=== PATIENT | female | born 2000 | race Caucasian/White ===

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

== ENCOUNTER → 2021-01-08 10:14 | Outpatient (BNV) | payer OTHER, SELFPAY | PROVIDERS: Referring Provider Physician Assistant; Visit Provider Internal Medicine | DX: D64.9 Anemia, unspecified (principal) | CPT/HCPCS: 99203; 99213; G2211 ==

== ENCOUNTER 2021-07-12 23:50 | Emergency (ER) | payer OTHER, SELFPAY ==
--- NOTE | ~2021-07-12 | XR_ITS ---
EXAMINATION: XR CHEST CLINICAL INFORMATION: Congestion COMPARISON: 03/22/2018 TECHNIQUE: Frontal view of the chest was obtained. FINDINGS: The lungs are clear with no focal consolidation. No evidence of pneumothorax, pulmonary edema, or pleural effusions. The cardiomediastinal silhouette is unremarkable. No acute osseous findings. XR/XR chest 1V IMPRESSION: No acute cardiopulmonary findings.
[2021-07-13 00:53] VITALS: BP 156/87; PULSE 110; RESP 18; TEMP 37.1; O2SAT 98; BMI 21.4
[2021-07-13 01:00] LABS: COVID-19 Test Negative (Negative)
--- NOTE | 2021-07-13 01:52 | ED.URI ---
HPI - URI/Sore Throat General Chief Complaint: Upper Respiratory Symptoms Stated Complaint: congested; can't sleep Time Seen by Provider: 07/13/21 01:52 Source: patient Mode of arrival: ambulatory Limitations: no limitations History of Present Illness MD elicited complaint: rhinorrhea and nasal congestion Pertinent past history: seasonal allergies Onset (ago): day(s) (2) Consistency: progressively worsening Severity: severe Description of mucous: clear and watery Able to tolerate fluids by mouth: Yes Exacerbating factors: nothing Relieving factors: nothing Context: other (hx of milder symptoms) Associated symptoms: rhinorrhea, nasal congestion and other (hard time sleeping due to mucous) Treatments prior to arrival: other (zyrtec) Related Data Home Medications Medication Instructions Recorded Confirmed cetirizine 10 mg tablet (Zyrtec) 10 mg PO DAILY 04/10/21 04/10/21 Previous Rx's Medication Instructions Recorded triamcinolone acetonide 0.025 % 1 appl TOPICAL DAILY #80 g 06/25/20 topical ointment svirftcr-qhh-peao-FA-Ca carb-vit K 1 tab PO BEDTIME #30 tab 11/06/20 18 mg iron-400 mcg-500 mg tablet (Women's Multivitamin) ferrous sulfate 325 mg (65 mg 325 mg PO BID #60 tab 01/08/21 iron) tablet (iron) fluticasone propionate 50 1 spray INTRANASAL DAILY #16 g 07/13/21 mcg/actuation nasal spray,suspension prednisone 20 mg tablet 40 mg PO DAILY 4 Days #8 tab 07/13/21 Allergies Allergy/AdvReac Type Severity Reaction Status Date / Time hazelnut Allergy Mild WATERY EYES Verified 07/13/21 00:42 mcconnell [CHERRIES] Allergy Unknown THROAT Verified 07/13/21 00:42 SWELLING GUINNEA PIG Allergy Mild WATERY, Uncoded 07/13/21 00:42 ITCHY EYES Tree Nuts Allergy Unknown rash Uncoded 07/13/21 00:42 Review of Systems Review of Systems: Constitutional : No Fever, No Chills ENT/Mouth : No sore throat, pos Rhinorrhea, pos congestion Eyes: No Eye Pain, No Swelling, No Redness Cardiovascular : No Chest Pain, No SOB Respiratory : No Cough, No Sputum, No Wheezing Gastrointestinal : No Nausea, No Vomiting, No Diarrhea Genitourinary : No Dysuria, No Urinary Frequency, No Hematuria, Musculoskeletal : No joint pain, No Myalgias, No Joint Swelling Skin : No Skin Lesions, No rash Neuro : No Weakness, No Numbness, No Dizziness, No Headache [facility] Past Medical History Attestation statement: The following information was validated with the patient. Medical History Intrinsic eczema Iron deficiency anemia Surgical History No pertinent past surgical history Family History Family History Mother No problems noted. Maternal Grandfather Cancer Social History Social History Household Members: Family Alcohol intake: never Patient Tobacco Use Status: Never used Tobacco Advance Directives: No Advance Directives Information Provided: Yes Patient : No Physical Exam Vital Signs: Vital Signs: Last Vital Signs Temp 98.7 F 07/13/21 00:53 Pulse 110 H 07/13/21 00:53 Resp 18 07/13/21 00:53 BP 156/87 H 07/13/21 00:53 Pulse Ox 98 07/13/21 00:53 BMI result Body Mass Index 21.4 Appearance: Alert. Oriented X3. No acute distress. Eyes: Pupils equal, round and reactive to light. ENT: Pharynx normal. boggy very swollen turbinates, clear mucous, bags under eyes Neck: Normal inspection. Neck supple. CVS: Normal heart rate and rhythm. Pulses normal. Respiratory: No respiratory distress. Breath sounds normal. Abdomen: Soft and nontender. Skin: Skin warm and dry. Normal skin color. Normal skin turgor. Extremities: No lower extremity edema. No calf ttp Neuro: Oriented X 3. No motor deficit. No sensory deficit. MDM - URI/Sore Throat MDM Narrative Medical decision making narrative: 21 yo female with hx of allergies here with allergic rhinitis and very boggy turbinates, clear mucous no fevers - will need flonase and prednisone given swelling no concern for bacterial infection Lab Data Labs: Lab Results 07/13/21 Range/Units 00:35 COVID-19 (NICOLLE) Negative (Negative) COVID-19 Clin Com See Note Discharge Plan Discharge Clinical Impression: Allergic rhinitis Qualifiers: Allergic rhinitis trigger: unspecified Allergic rhinitis seasonality: unspecified Qualified Code(s): J30.9 - Allergic rhinitis, unspecified Patient Disposition: Home, Self-Care Instructions: Allergic Rhinitis (ED) Additional Instructions: return to ED for any worsening symptoms or concerns Prescriptions: New prednisone 20 mg tablet 40 mg PO DAILY 4 Days Qty: 8 0RF fluticasone propionate 50 mcg/actuation spray,suspension 1 spray intranasal DAILY Qty: 16 0RF Rx Instructions: administer into each nostril No Action Women's Multivitamin 18 mg iron-400 mcg-500 mg tablet 1 tab PO BEDTIME Qty: 30 2RF ferrous sulfate [iron] 325 mg (65 mg iron) Tablet 325 mg PO BID Qty: 60 3RF cetirizine [Zyrtec] 10 mg Tablet 10 mg PO DAILY 0RF triamcinolone acetonide 0.025 % ointment 1 appl topical DAILY Qty: 80 2RF Referrals: Billie Sanchez PA-C [Primary Care Provider] - 3 days (if not better)
[2021-07-13] MEDS: predniSONE 20 MG TABLET 40 MG PO (02:16)
[2021-07-13] MEDS: Oxymetazoline HCl 0.05 % Nasal 15 ML SPRAY 2 SPRAY NOSTRIL-B (02:17)
[2021-07-13 02:24] VITALS: BP 133/68; PULSE 98; RESP 16; O2SAT 97
== END 2021-07-13 02:27 | disposition home or self-care (01) ==
LOC: HO.ED 07-13 02:02
PROVIDERS: Emergency Provider Emergency Medicine; PCP Physician Assistant
DX: J30.9 Allergic rhinitis, unspecified (principal); Z20.822 Contact with and (suspected) exposure to COVID-19
CPT/HCPCS: 71045; 87635; 99283

== ENCOUNTER 2021-10-14 11:59 | Outpatient (REF) | payer OTHER, SELFPAY ==
[2021-10-14 16:25] LABS: Influenza A PCR NEGATIVE (Negative); Influenza B PCR NEGATIVE (Negative); Resp Syncy Virus RNA Qual PCR NEGATIVE (Negative); SARS COV2 PCR INHOUSE POSITIVE (Negative)
== END 2021-10-14 12:00 | disposition home or self-care (01) ==
LOC: HO.LAB 11:59
PROVIDERS: Visit Provider Pediatrics
DX: Z20.822 Contact with and (suspected) exposure to COVID-19 (principal); R09.89 Other specified symptoms and signs involving the circulatory and respiratory systems
CPT/HCPCS: 0241U

== ENCOUNTER 2022-02-18 12:19 | Outpatient (REF) | payer OTHER, SELFPAY ==
[2022-02-18 13:59] LABS: MANUAL DIFF FLAG NO
[2022-02-18 14:15] LABS: Basophils Percent Auto 0.3 % (0-2); Eosinophils Absolute Auto 0.5 X10*3/uL (0.0-0.4); Eosinophils Percent Auto 7.2 % (0-4); Hematocrit 39.2 % (37.0-47.0); Hemoglobin 12.8 g/dl (12.0-16.0); Imm Gran Abs Auto 0.01 X10*3/uL (0.00-0.03); Imm Gran Pct Auto 0.1 % (0.0-0.4); Lymphocytes Absolute Auto 2.2 X10*3/uL (1.2-4.9); Lymphocytes Percent Auto 29.1 % (20-40); Mean Corpuscular HGB Conc 32.7 g/dl (31.0-35.0); Mean Corpuscular Hemoglobin 26.3 pg (27.0-33.0); Mean Corpuscular Volume 80.5 fL (80.0-98.0); Mean Platelet Volume 12.4 fL (9.4-12.3); Monocytes Absolute Auto 0.5 X10*3/uL (0.1-1.2); Monocytes Percent Auto 7.2 % (2-11); Neutrophils Absolute Auto 4.2 x10*3/uL (2.0-8.3); Neutrophils Percent Auto 56.1 % (45-73); Platelet Count 221 X10*3/uL (160-400); Red Blood Count 4.87 X10*6/uL (4.20-5.50); Red Cell Distribution Width 12.5 % (11.0-16.0); White Blood Count 7.5 X10*3/uL (4.8-10.8)
[2022-02-18 14:58] LABS: Alanine Aminotransferase 57 U/L (0-31); Albumin Level 4.5 g/dL (3.5-5.0); Alkaline Phosphatase 81 U/L (39-117); Anion Gap 13 (12-20); Aspartate Amino Transferase 40 U/L (5-31); Bilirubin Total 0.6 mg/dL (0.0-1.0); Blood Urea Nitrogen 19 mg/dL (9-16); Calcium 10.3 mg/dL (8.4-10.2); Carbon Dioxide 25 mmol/L (22-29); Chloride 106 mmol/L (96-108); Estimated Glomerular Filt Rate > 60; Glucose Fasting 87 mg/dL (60-99); Sodium 140 mmol/L (135-145); TSH reflex Free T4 < 0.01 uIU/mL (0.32-4.0); Total Protein 7.5 g/dL (6.5-8.0)
[2022-02-19 08:56] LABS: Triiodothyronine T3 Free 14.9 pg/mL (3.0-4.7)
[2022-02-19 09:37] LABS: Thyroid Peroxidase Antibodies 163 IU/mL (<9)
== END 2022-02-18 12:20 | disposition home or self-care (01) ==
LOC: HO.WFDLDS 12:19
PROVIDERS: Visit Provider Nurse Practitioner Family
DX: R22.1 Localized swelling, mass and lump, neck (principal)
CPT/HCPCS: 36415; 76536; 80053; 84439; 84443; 84481; 85025; 86376

== ENCOUNTER 2022-02-18 13:25 | Outpatient (REF) | payer OTHER, SELFPAY ==
--- NOTE | ~2022-02-18 | US_ITS ---
EXAMINATION: US THYROID CLINICAL INFORMATION: Localized swelling, mass and lump. COMPARISON: None. TECHNIQUE: Linear transducer grayscale and color Doppler examination with attention to the region of the thyroid. FINDINGS: SIZE: Measurements of the thyroid lobes and nodules are given in sagittal, anteroposterior and transverse dimensions respectively. Right Thyroid Lobe: 4.3 x 2.4 x 2.4 cm, volume 12.9 mL. Parenchyma: The gland echotexture is heterogeneous. Thyroid vascularity is hypervascular. Left Thyroid Lobe: 4.8 x 2 0.5-2.0 cm, volume 12.4 mL. Parenchyma: The gland echotexture is heterogeneous. Thyroid vascularity is hypervascular. Isthmus: 0.7 cm in maximum AP dimension. Estimated total number of nodules greater than or equal to 1 cm: 0. There are no nodules visualized in either gland. NODES: No lymphadenopathy is seen in the tissue surrounding the thyroid gland. US/US thyroid IMPRESSION: 1. Enlarged hypervascular thyroid gland but no focal nodules seen. Findings suggestive of hyperthyroidism. 1. TR1 (0 point) and TR 2 (2 points): 2. TR4 (4-6 points): FNA if more than or equal to 1.5 cm in maximum dimension, followup ultrasound in 1, 2, 3 and 5 years if 1 to 1.4 cm in maximum dimension. 3. TR5 (more than or equal to 7 points): FNA if more than or equal to 1 cm in maximum dimension, followup ultrasound every year for 5 years if 0.5 to 0.9 cm in maximum dimension.
== END 2022-02-18 13:26 | disposition home or self-care (01) ==
LOC: HO.US 13:25
PROVIDERS: Visit Provider Nurse Practitioner Family
DX: Z13.89 Encounter for screening for other disorder (principal)
CPT/HCPCS: 76536

== ENCOUNTER 2022-02-24 09:49 | Outpatient (REF) | payer OTHER, SELFPAY ==
[2022-02-24 13:08] LABS: Free T4 (Free Thyroxine) 2.48 ng/dL (0.71-1.85); Thyroid Stimulating Hormone < 0.01 uIU/mL (0.32-4.0)
[2022-02-25 08:47] LABS: Triiodothyronine T3 Total 401 ng/dL (76-181)
[2022-02-25 09:10] LABS: Thyroglobulin Antibodies 3 IU/mL (< or = 1); Thyroid Peroxidase Antibodies 192 IU/mL (<9)
[2022-02-28 15:42] LABS: Thyroid Stimulating Immunoglob 643 % baseline (<140)
[2022-02-28 23:52] LABS: Thyrotropin Receptor Antibody 16.27 IU/L (<=2.00)
== END 2022-02-24 09:50 | disposition home or self-care (01) ==
LOC: HO.LAB 09:49
PROVIDERS: PCP Pediatrics; Visit Provider Internal Medicine
DX: E05.90 Thyrotoxicosis, unspecified without thyrotoxic crisis or storm (principal)
CPT/HCPCS: 36415; 83520; 84439; 84443; 84445; 84480; 86376; 86800; 99202

== ENCOUNTER 2022-03-13 11:33 | Outpatient (REF) | payer OTHER, SELFPAY ==
[2022-03-13 13:51] LABS: Free T4 (Free Thyroxine) 1.26 ng/dL (0.71-1.85)
[2022-03-14 23:39] LABS: Triiodothyronine T3 Total 199 ng/dL (76-181)
[2022-03-19 15:09] LABS: Thyrotropin Receptor Antibody 13.11 IU/L (<=2.00)
== END 2022-03-13 11:34 | disposition home or self-care (01) ==
LOC: HO.LAB 11:33
PROVIDERS: Nurse Practitioner Family; Visit Provider Internal Medicine
DX: E05.90 Thyrotoxicosis, unspecified without thyrotoxic crisis or storm (principal); E04.9 Nontoxic goiter, unspecified
CPT/HCPCS: 36415; 83520; 84439; 84480

== ENCOUNTER 2022-03-25 21:38 | Emergency (ER) | payer OTHER, SELFPAY ==
[2022-03-25 21:43] VITALS: BP 126/82; PULSE 122; RESP 17; TEMP 37.7; O2SAT 96; BMI 22.3
[2022-03-25 22:09] LABS: MANUAL DIFF FLAG NO
[2022-03-25 22:11] LABS: Basophils Percent Auto 0.2 % (0-2); Eosinophils Absolute Auto 0.1 X10*3/uL (0.0-0.4); Eosinophils Percent Auto 0.7 % (0-4); Hematocrit 35.9 % (37.0-47.0); Imm Gran Abs Auto 0.04 X10*3/uL (0.00-0.03); Imm Gran Pct Auto 0.3 % (0.0-0.4); Lymphocytes Absolute Auto 1.4 X10*3/uL (1.2-4.9); Lymphocytes Percent Auto 10.7 % (20-40); Mean Corpuscular HGB Conc 33.4 g/dl (31.0-35.0); Mean Corpuscular Hemoglobin 26.5 pg (27.0-33.0); Mean Corpuscular Volume 79.2 fL (80.0-98.0); Mean Platelet Volume 11.7 fL (9.4-12.3); Monocytes Absolute Auto 1.1 X10*3/uL (0.1-1.2); Monocytes Percent Auto 8.2 % (2-11); Neutrophils Absolute Auto 10.2 x10*3/uL (2.0-8.3); Neutrophils Percent Auto 79.9 % (45-73); Platelet Count 187 X10*3/uL (160-400); Red Blood Count 4.53 X10*6/uL (4.20-5.50); Red Cell Distribution Width 12.8 % (11.0-16.0); White Blood Count 12.8 X10*3/uL (4.8-10.8)
[2022-03-25 22:18] LABS: IDNOW Serial# 08D9AD1C; Strep A Nucleic Acid Negative (Negative)
[2022-03-25 22:48] LABS: Influenza A PCR NEGATIVE (Negative); Influenza B PCR NEGATIVE (Negative); Resp Syncy Virus RNA Qual PCR NEGATIVE (Negative); SARS COV2 PCR INHOUSE NEGATIVE (Negative)
[2022-03-25 22:49] LABS: Alanine Aminotransferase 35 U/L (0-31); Albumin Level 4.6 g/dL (3.5-5.0); Alkaline Phosphatase 93 U/L (39-117); Anion Gap 12 (12-20); Aspartate Amino Transferase 26 U/L (5-31); Bilirubin Total 0.5 mg/dL (0.0-1.0); Blood Urea Nitrogen 19 mg/dL (9-16); Calcium 9.5 mg/dL (8.4-10.2); Carbon Dioxide 25 mmol/L (22-29); Chloride 104 mmol/L (96-108); Creatinine Clr Calc Pharmacy 106.7; Estimated Glomerular Filt Rate > 60; Glucose Random 107 mg/dL (60-115); Potassium 3.7 mmol/L (3.3-5.1); Sodium 137 mmol/L (135-145); Thyroid Stimulating Hormone < 0.01 uIU/mL (0.32-4.0); Total Protein 7.5 g/dL (6.5-8.0)
[2022-03-26 01:05] VITALS: BP 110/58; PULSE 97; RESP 19; TEMP 37.3; O2SAT 100
--- NOTE | 2022-03-26 01:56 | ED_ITS ---
HPI - URI/Sore Throat General Chief Complaint: Dental/Oral Stated Complaint: fever, sore throat Time Seen by Provider: 03/26/22 01:40 Source: patient Mode of arrival: ambulatory Limitations: no limitations History of Present Illness HPI Narrative: Patient complaining of sore throat started yesterday with fever 103 at home painful to swallow. No shortness of breath no cough no runny nose no other family member sick patient had rapid strep done which was negative also had negative COVID and flu patient does have history of hyperthyroidism on methimazole and propranolol Related Data Home Medications Medication Instructions Recorded Confirmed cetirizine 10 mg tablet (Zyrtec) 10 mg PO DAILY 04/10/21 02/24/22 cromolyn 4 % eye drops 1 drp ophthalmic (eye) QID 10/14/21 02/24/22 epinephrine 0.3 mg/0.3 mL IM 10/14/21 02/24/22 injection, auto-injector Previous Rx's Medication Instructions Recorded triamcinolone acetonide 0.025 % 1 appl topical DAILY #80 grams 06/25/20 topical ointment fluticasone propionate 50 1 spray intranasal DAILY #16 grams 07/13/21 mcg/actuation nasal spray,suspension multivitamin-ferrous 1 tab PO BEDTIME #90 tabs 02/14/22 fumarate-folic acid 18 mg-400 mcg tablet (Spectravite Women) propranolol 10 mg tablet 10 mg PO .q8 prn Tachycardia 30 02/24/22 days #90 tabs methimazole 10 mg tablet 10 mg PO TID 30 days #90 tabs 03/17/22 amoxicillin 875 mg-potassium 1 tab PO BID #20 tabs 03/26/22 clavulanate 125 mg tablet Allergies Allergy/AdvReac Type Severity Reaction Status Date / Time hazelnut Allergy Mild WATERY EYES Verified 02/24/22 10:54 mcconnell [CHERRIES] Allergy Unknown THROAT Verified 02/24/22 10:54 SWELLING GUINNEA PIG Allergy Mild WATERY, Uncoded 02/24/22 10:54 ITCHY EYES Tree Nuts Allergy Unknown rash Uncoded 02/24/22 10:54 Review of Systems Review of Systems: Yes all other systems are reviewed and are negative PMFSH Past Medical History Medical History Intrinsic eczema Iron deficiency anemia Surgical History No pertinent past surgical history Family History Family History Mother Chronic mental illness Hyperthyroidism Maternal Grandfather Cancer Maternal Grandmother Hypertension Diabetes Hypercholesteremia Social History Social History Household Members: Family Housing: House Alcohol intake: never Patient Tobacco Use Status: Never used Tobacco Advance Directives: No Advance Directives Information Provided: No 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al status: unemployed Cognitive needs: No Hearing needs: No Vision needs: Yes Physical Exam Vital Signs: Vital Signs: Last Vital Signs Temp 99.2 F 03/26/22 01:05 Pulse 97 03/26/22 01:05 Resp 19 03/26/22 01:05 BP 110/58 L 03/26/22 01:05 Pulse Ox 100 03/26/22 01:05 O2 Del Method 03/26/22 01:05 BMI result Body Mass Index 22.3 Appearance: Alert. Oriented X3. No acute distress. ENT: Pharynx normal. Oral Mucosa moist no exudate tonsils are normal size Neck: Normal inspection. Neck supple. Thyroid palpable CVS: Normal heart rate and rhythm. Pulses normal. Respiratory: No respiratory distress. Equal air entry bilateral, no wheezing/r ales/rhonchi Skin: Skin warm and dry. Normal skin color. Normal skin turgor. Extremities: No lower extremity edema. Neuro: Oriented X 3. Medications Administered Discontinued Medications Generic Name Dose Route Start Last Admin Trade Name Eloina PRN Reason Stop Dose Admin Amoxicillin/Clavulanate Potassium 875 mg 03/26/22 01:57 03/26/22 02:10 Amoxicillin/Potassium Clav 875 Mg Tablet PO 03/26/22 01:58 875 mg ONCE ONE Administration Medical Decision Making Medical Decision Making MDM Narrative: Patient hyperthyroidism on methimazole and propranolol comes in with sore throat rapid strep COVID/RSV/flu negative patient had fever and symptomatic will discharge her on Augmentin Lab Data MDM Lab Attestation statement: I reviewed the patient's lab results. Result Diagrams: 03/25/22 22:01 03/25/22 22:01 Labs: Lab Results 03/25/22 03/25/22 03/25/22 Range/Units 22:01 22:01 22:01 WBC 12.8 H (4.8-10.8) X10*3/uL RBC 4.53 (4.20-5.50) X10*6/uL Hgb 12.0 (12.0-16.0) g/dl Hct 35.9 L (37.0-47.0) % MCV 79.2 L (80.0-98.0) fL MCH 26.5 L (27.0-33.0) pg MCHC 33.4 (31.0-35.0) g/dl RDW 12.8 (11.0-16.0) % Plt Count 187 (160-400) X10*3/uL MPV 11.7 (9.4-12.3) fL Immature Gran % (Auto) 0.3 (0.0-0.4) % Neut % (Auto) 79.9 H (45-73) % Lymph % (Auto) 10.7 L (20-40) % [place] % (Auto) 8.2 (2-11) % Eos % (Auto) 0.7 (0-4) % Baso % (Auto) 0.2 (0-2) % Lymph # (Auto) 1.4 (1.2-4.9) X10*3/uL [place] # (Auto) 1.1 (0.1-1.2) X10*3/uL Eos # (Auto) 0.1 (0.0-0.4) X10*3/uL Baso # (Auto) 0.0 (0.0-0.2) X10*3/uL Abs Immat Gran (auto) 0.04 H (0.00-0.03) X10*3/uL Absolute Neuts (auto) 10.2 H (2.0-8.3) x10*3/uL Absolute Nucleated RBC 0.000 (0.0-0.012) X10*3/uL Nucleated RBC % (auto) 0.0 (0.0-0.2) /100WBC Sodium 137 (135-145) mmol/L Potassium 3.7 (3.3-5.1) mmol/L Chloride 104 (96-108) mmol/L Carbon Dioxide 25 (22-29) mmol/L Anion Gap 12 (12-20) BUN 19 H (9-16) mg/dL Creatinine 0.72 (0.5-1.4) mg/dL Estim Creat Clear Calc 106.7 Estimated GFR > 60 Random Glucose 107 (60-115) mg/dL Calcium 9.5 D (8.4-10.2) mg/dL Total Bilirubin 0.5 (0.0-1.0) mg/dL AST 26 (5-31) U/L ALT 35 H (0-31) U/L Alkaline Phosphatase 93 (39-117) U/L Total Protein 7.5 (6.5-8.0) g/dL Albumin 4.6 (3.5-5.0) g/dL TSH < 0.01 L (0.32-4.0) uIU/mL Influenza Type A (PCR) NEGATIVE (Negative) Influenza Type B (PCR) NEGATIVE (Negative) RSV RNA Qual (PCR) NEGATIVE (Negative) SARS-CoV-2 RNA (RT-PCR) NEGATIVE (Negative) S. pyogenes GrpA AXEL (Negative) 03/25/22 Range/Units 22:03 WBC (4.8-10.8) X10*3/uL RBC (4.20-5.50) X10*6/uL Hgb (12.0-16.0) g/dl Hct (37.0-47.0) % MCV (80.0-98.0) fL MCH (27.0-33.0) pg MCHC (31.0-35.0) g/dl RDW (11.0-16.0) % Plt Count (160-400) X10*3/uL MPV (9.4-12.3) fL Immature Gran % (Auto) (0.0-0.4) % Neut % (Auto) (45-73) % Lymph % (Auto) (20-40) % [place] % (Auto) (2-11) % Eos % (Auto) (0-4) % Baso % (Auto) (0-2) % Lymph # (Auto) (1.2-4.9) X10*3/uL [place] # (Auto) (0.1-1.2) X10*3/uL Eos # (Auto) (0.0-0.4) X10*3/uL Baso # (Auto) (0.0-0.2) X10*3/uL Abs Immat Gran (auto) (0.00-0.03) X10*3/uL Absolute Neuts (auto) (2.0-8.3) x10*3/uL Absolute Nucleated RBC (0.0-0.012) X10*3/uL Nucleated RBC % (auto) (0.0-0.2) /100WBC Sodium (135-145) mmol/L Potassium (3.3-5.1) mmol/L Chloride (96-108) mmol/L Carbon Dioxide (22-29) mmol/L Anion Gap (12-20) BUN (9-16) mg/dL Creatinine (0.5-1.4) mg/dL Estim Creat Clear Calc Estimated GFR Random Glucose (60-115) mg/dL Calcium (8.4-10.2) mg/dL Total Bilirubin (0.0-1.0) mg/dL AST (5-31) U/L ALT (0-31) U/L Alkaline Phosphatase (39-117) U/L Total Protein (6.5-8.0) g/dL Albumin (3.5-5.0) g/dL TSH (0.32-4.0) uIU/mL Influenza Type A (PCR) (Negative) Influenza Type B (PCR) (Negative) RSV RNA Qual (PCR) (Negative) SARS-CoV-2 RNA (RT-PCR) (Negative) S. pyogenes GrpA AXEL Negative (Negative) Discharge Plan Discharge Clinical Impression: Acute pharyngitis Patient Disposition: Home, Self-Care Instructions: Pharyngitis (ED) Additional Instructions: Drink plenty of fluids Take antibiotic as prescribed Follow-up with PCP Prescriptions: New amoxicillin-pot clavulanate 875-125 mg tablet 1 tab PO BID Qty: 20 0RF No Action Spectravite Women 18-400 mg-mcg tablet 1 tab PO BEDTIME Qty: 90 0RF methimazole 10 mg tablet 10 mg PO TID 30 Days Qty: 90 3RF cetirizine [Zyrtec] 10 mg Tablet 10 mg PO DAILY fluticasone propionate 50 mcg/actuation spray,suspension 1 spray intranasal DAILY Qty: 16 0RF Rx Instructions: administer into each nostril triamcinolone acetonide 0.025 % ointment 1 appl topical DAILY Qty: 80 2RF epinephrine 0.3 mg/0.3 mL auto-injector IM cromolyn 4 % drops 1 drp ophthalmic (eye) QID propranolol 10 mg tablet 10 mg PO .q8 prn 30 Days Qty: 90 3RF Interventions: ED Discharge Assessment Last Done: 03/26/22 02:14 Discharge Date/Time: 03/26/22 02:15
[2022-03-26] MEDS: Amoxicillin/Potassium Clav 875 MG TABLET PO (02:10)
== END 2022-03-26 02:15 | disposition home or self-care (01) ==
PROVIDERS: Emergency Provider Internal Medicine
DX: J02.9 Acute pharyngitis, unspecified (principal); R50.9 Fever, unspecified; Z20.822 Contact with and (suspected) exposure to COVID-19
CPT/HCPCS: 0241U; 36415; 80053; 84443; 85025; 87651; 99283

== ENCOUNTER → 2022-03-27 13:33 | Outpatient (BNVA) | payer OTHER, SELFPAY | PROVIDERS: Visit Provider Internal Medicine | DX: E05.90 Thyrotoxicosis, unspecified without thyrotoxic crisis or storm (principal) | CPT/HCPCS: 99212 ==

== ENCOUNTER 2022-04-10 11:50 | Outpatient (REF) | payer OTHER, SELFPAY ==
[2022-04-10 13:36] LABS: Free T4 (Free Thyroxine) 0.64 ng/dL (0.71-1.85)
[2022-04-11 17:09] LABS: Triiodothyronine T3 Total 117 ng/dL (76-181)
== END 2022-04-10 11:51 | disposition home or self-care (01) ==
LOC: HO.LAB 11:50
PROVIDERS: Visit Provider Internal Medicine
DX: E05.90 Thyrotoxicosis, unspecified without thyrotoxic crisis or storm (principal)
CPT/HCPCS: 36415; 84439; 84480

== ENCOUNTER 2022-04-30 07:55 | Outpatient (REF) | payer OTHER, SELFPAY ==
[2022-04-30 08:14] LABS: Hematocrit 34.8 % (37.0-47.0); Hemoglobin 11.5 g/dl (12.0-16.0); Mean Corpuscular Hemoglobin 26.9 pg (27.0-33.0); Mean Corpuscular Volume 81.3 fL (80.0-98.0); Mean Platelet Volume 11.2 fL (9.4-12.3); Platelet Count 192 X10*3/uL (160-400); Red Blood Count 4.28 X10*6/uL (4.20-5.50); Red Cell Distribution Width 13.9 % (11.0-16.0); White Blood Count 5.2 X10*3/uL (4.8-10.8)
[2022-04-30 08:55] LABS: Ferritin 20 ng/mL (10-122)
== END 2022-04-30 07:56 | disposition home or self-care (01) ==
LOC: HO.LAB 07:55
PROVIDERS: Internal Medicine; PCP Physician Assistant; Visit Provider Internal Medicine
DX: D64.9 Anemia, unspecified (principal)
CPT/HCPCS: 36415; 82728; 85027

== ENCOUNTER → 2022-05-29 10:37 | Outpatient (REF) | payer OTHER, SELFPAY ==
--- NOTE | ~2022-05-29 | NM_ITS ---
EXAMINATION: THYROID UPTAKE AND SCAN CLINICAL INFORMATION: Nontoxic goiter. TSH less than 0.01, 03/25/2022. COMPARISON: No previous radionuclide thyroid scan is available for comparison. Thyroid ultrasound dated 02/18/2022 is available for comparison. TECHNIQUE: Following the oral administration of 283 microcuries of I-123 sodium iodide, thyroid uptake was performed and expressed as a percentage of the administrated dose. Gamma scintillation camera images of the thyroid in the anterior and right and left anterior oblique views were obtained using a pinhole collimator following the administration of 10 mCi Tc-99m pertechnetate. FINDINGS: The uptake is 86.3% at 4 hours and 97.5% at 24 hours (Normal radioiodine uptake at 24 hours is 10% to 30%). The radioiodine uptake is markedly elevated. The radiopertechnetate thyroid scintigram shows the thyroid gland to be mildly enlarged, approximately 1 1/2 to 2 times normal in size. There is minimal heterogeneity bilaterally with some bosselation in the lateral margins of the mid lobes bilaterally. No definite focal abnormalities are present. The trapping function is markedly increased diffusely. A single anterior radioiodine image obtained at the time of the 24-hour uptake measurement is similar to the radio pertechnetate image. NM/NM thyroid w uptake IMPRESSION: Mildly enlarged diffuse toxic goiter of Graves' disease. No definite nodules are visualized. The radioiodine uptake is markedly elevated.
== END ==
LOC: HO.NUCMED 10:37
PROVIDERS: PCP Physician Assistant; Visit Provider Nurse Practitioner Family
DX: E04.9 Nontoxic goiter, unspecified (principal)
CPT/HCPCS: 78014; A9512; A9516

== ENCOUNTER 2022-06-13 12:55 | Outpatient (REF) | payer OTHER, SELFPAY ==
[2022-06-13 15:42] LABS: Free T4 (Free Thyroxine) 0.64 ng/dL (0.71-1.85)
[2022-06-15 16:08] LABS: Triiodothyronine T3 Total 97 ng/dL (76-181)
== END 2022-06-13 12:56 | disposition home or self-care (01) ==
LOC: HO.LAB 12:55
PROVIDERS: PCP Internal Medicine; Visit Provider Internal Medicine
DX: E05.90 Thyrotoxicosis, unspecified without thyrotoxic crisis or storm (principal)
CPT/HCPCS: 36415; 84439; 84480

== ENCOUNTER 2022-07-25 09:13 | Outpatient (REF) | payer OTHER, SELFPAY ==
[2022-07-25 10:35] LABS: Free T4 (Free Thyroxine) < 0.42 ng/dL (0.71-1.85); Thyroid Stimulating Hormone 84.78 uIU/mL (0.32-4.0)
[2022-07-28 02:14] LABS: Triiodothyronine T3 Total 64 ng/dL (76-181)
== END 2022-07-25 09:14 | disposition home or self-care (01) ==
LOC: HO.LAB 09:13
PROVIDERS: PCP Internal Medicine; Visit Provider Internal Medicine
DX: E05.90 Thyrotoxicosis, unspecified without thyrotoxic crisis or storm (principal)
CPT/HCPCS: 36415; 84439; 84443; 84480

== ENCOUNTER 2022-08-01 14:30 | Outpatient (REF) | payer OTHER, SELFPAY ==
[2022-08-01 14:42] LABS: MANUAL DIFF FLAG NO
[2022-08-01 15:12] LABS: Basophils Percent Auto 0.2 % (0-2); Eosinophils Absolute Auto 0.1 X10*3/uL (0.0-0.4); Eosinophils Percent Auto 1.3 % (0-4); Hemoglobin 11.1 g/dl (12.0-16.0); Imm Gran Abs Auto 0.01 X10*3/uL (0.00-0.03); Imm Gran Pct Auto 0.2 % (0.0-0.4); Lymphocytes Percent Auto 18.4 % (20-40); Mean Corpuscular HGB Conc 33.6 g/dl (31.0-35.0); Mean Corpuscular Hemoglobin 27.9 pg (27.0-33.0); Mean Corpuscular Volume 82.9 fL (80.0-98.0); Mean Platelet Volume 12.3 fL (9.4-12.3); Monocytes Absolute Auto 0.4 X10*3/uL (0.1-1.2); Monocytes Percent Auto 6.6 % (2-11); Neutrophils Absolute Auto 3.9 x10*3/uL (2.0-8.3); Neutrophils Percent Auto 73.3 % (45-73); Platelet Count 169 X10*3/uL (160-400); Red Blood Count 3.98 X10*6/uL (4.20-5.50); Red Cell Distribution Width 12.4 % (11.0-16.0); White Blood Count 5.3 X10*3/uL (4.8-10.8)
[2022-08-01 16:59] LABS: Free T4 (Free Thyroxine) 0.49 ng/dL (0.71-1.85)
[2022-08-03 02:19] LABS: Triiodothyronine T3 Total 210 ng/dL (76-181)
== END 2022-08-01 14:31 | disposition home or self-care (01) ==
LOC: HO.LAB 14:30
PROVIDERS: Internal Medicine; PCP Internal Medicine; Visit Provider Internal Medicine Endocrinology, Diabetes & Metabolism
DX: E05.90 Thyrotoxicosis, unspecified without thyrotoxic crisis or storm (principal)
CPT/HCPCS: 36415; 84439; 84480; 85025

== ENCOUNTER 2022-08-11 08:45 | Outpatient (REF) | payer OTHER, SELFPAY ==
[2022-08-11 11:23] LABS: Free T4 (Free Thyroxine) 0.77 ng/dL (0.71-1.85); Thyroid Stimulating Hormone 11.65 uIU/mL (0.32-4.0)
[2022-08-13 00:53] LABS: Triiodothyronine T3 Total 128 ng/dL (76-181)
== END 2022-08-11 08:46 | disposition home or self-care (01) ==
LOC: HO.LAB 08:45
PROVIDERS: PCP Internal Medicine; Visit Provider Internal Medicine
DX: E05.90 Thyrotoxicosis, unspecified without thyrotoxic crisis or storm (principal)
CPT/HCPCS: 36415; 84439; 84443; 84480; 99212

== ENCOUNTER 2022-08-26 11:45 | Outpatient (REF) | payer OTHER, SELFPAY ==
[2022-08-26 14:43] LABS: Free T4 (Free Thyroxine) 0.64 ng/dL (0.71-1.85)
[2022-08-28 21:04] LABS: Triiodothyronine T3 Total 113 ng/dL (76-181)
== END 2022-08-26 11:46 | disposition home or self-care (01) ==
LOC: HO.LAB 11:45
PROVIDERS: PCP Internal Medicine; Visit Provider Internal Medicine
DX: E05.90 Thyrotoxicosis, unspecified without thyrotoxic crisis or storm (principal)
CPT/HCPCS: 36415; 84439; 84480

== ENCOUNTER 2022-09-10 12:02 | Outpatient (REF) | payer OTHER, SELFPAY ==
[2022-09-10 14:18] LABS: Thyroid Stimulating Hormone 19.87 uIU/mL (0.32-4.0)
[2022-09-12 10:24] LABS: Triiodothyronine T3 Total 105 ng/dL (76-181)
== END 2022-09-10 12:03 | disposition home or self-care (01) ==
LOC: HO.LAB 12:02
PROVIDERS: PCP Internal Medicine; Visit Provider Internal Medicine
DX: E05.90 Thyrotoxicosis, unspecified without thyrotoxic crisis or storm (principal)
CPT/HCPCS: 36415; 84439; 84443; 84480

== ENCOUNTER 2022-09-22 11:31 | Outpatient (REF) | payer OTHER, SELFPAY ==
[2022-09-22 14:40] LABS: Free T4 (Free Thyroxine) 0.65 ng/dL (0.71-1.85); Thyroid Stimulating Hormone 12.32 uIU/mL (0.32-4.0)
[2022-09-23 02:53] LABS: Triiodothyronine T3 Total 105 ng/dL (76-181)
[2022-09-23 14:27] LABS: Rubella IgG Antibody 5.36 Index
[2022-09-24 04:17] LABS: HBS Num1 1.64 mIU/mL (0-7.99); HBc Num1 0.07 S/CO (0.00-0.79); HBsAGNum1 0.31 S/CO (0.00-0.99); Hepatitis B Core Antibody Nonreactive (Nonreactive); Hepatitis B Surface Antigen Negative (Negative); ~Hepatitis B Surface Antibody NONREACTIVE (Nonreactive)
[2022-09-24 16:02] LABS: TS Negative Control Passed; TS Panel A 0; TS Panel B 0; TS Positive Control Passed; TSpotTB Negative (Negative)
== END 2022-09-22 11:32 | disposition home or self-care (01) ==
LOC: HO.LAB 11:31
PROVIDERS: PCP Internal Medicine; Visit Provider Internal Medicine
DX: Z01.84 Encounter for antibody response examination (principal); Z11.1 Encounter for screening for respiratory tuberculosis; E05.90 Thyrotoxicosis, unspecified without thyrotoxic crisis or storm
CPT/HCPCS: 36415; 84439; 84443; 84480; 86481; 86704; 86706; 86735; 86762; 86765; 86787; 87340; 99212

== ENCOUNTER 2022-12-03 09:13 | Outpatient (AMB) | payer OTHER, SELFPAY ==
[2022-12-03 09:23] VITALS: BP 118/76; BMI 22.7
--- NOTE | 2022-12-03 09:23 | MHC.PC.OV ---
Vital Signs 12/03/22 09:23 Height 5 ft 4 in Weight 132 lb BMI 22.7 BP 118/76 Blood Pressure Location Lt brachial Position Sitting Intake Visit Reasons: physical exam Intake Note: Patient here for a physical exam Medical Insurance Verifier Required: No Accompanied by: Mother Allergies hazelnut Allergy (Mild, Verified 12/03/22 09:39) WATERY EYES mcconnell [CHERRIES] Allergy (Unknown, Verified 12/03/22 09:39) THROAT SWELLING GUINNEA PIG Allergy (Mild, Uncoded 12/03/22 09:39) WATERY, ITCHY EYES Tree Nuts Allergy (Unknown, Uncoded 12/03/22 09:39) rash Medication List - Last Reconciled 12/03/22 by Nancy Newsome MD cetirizine (Zyrtec) 10 mg PO DAILY cromolyn 4% 1 drp ophthalmic (eye) QID epinephrine 0.3 mL IM DIRECTED ferrous sulfate 325 mg PO BID fluticasone propionate 50 mcg/actuation 1 spray intranasal DAILY methimazole 5 mg PO DAILY 30 days jojksoufgjek-kuee-fhgua acid 18-400 mg-mcg (Spectravite Women) 1 tab PO BEDTIME triamcinolone acetonide 0.025% 1 appl topical DAILY Tobacco use date assessed: 08/06/22 Dental Screening Dental Screen Date: 12/03/22 Did you have a dental visit in the last 12 months?: Yes Did you have a dental problem in the last 6 months where you did not have access to dental care?: No Was dental information given to patient?: Patient has dentist HPI HPI Comments History of Present Illness Details This is a 22-year-old female that comes accompanied by mother for her physical exam. Denies any chest pain or shortness of breath. No fever cough. No change in bowel or bladder habits. Has hyperthyroidism follow by Endocrinology and will be evaluated for thyroidectomy soon. [facility] Medical History Intrinsic eczema Iron deficiency anemia Surgical History No pertinent past surgical history Family History Mother Chronic mental illness Hyperthyroidism Maternal Grandfather Cancer Maternal Grandmother Hypertension Diabetes Hypercholesteremia Father No problems noted. Social History Household Members: Family Housing: House Alcohol intake: never Patient Tobacco Use Status: Never used Tobacco e-Cigarette/Vaping Use: Never Used Second Hand Smoke Exposure: No service: No 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al status: unemployed Cognitive needs: No Hearing needs: No Vision needs: Yes Questionnaire Thrive Questionnaire Date Thrive assessed: 08/06/22 JUSTIN-7 AMB Questionnaire JUSTIN-7 Date JUSTIN - 7 assessed: 08/06/22 Source: Developed by Drs. Gee Garcia, Carol Sanchez, Erasto Lord and colleagues, with an educational vanda from [employer]. Review of Systems Const All systems reviewed & are unremarkable except as noted in HPI and below Eyes Reports no additional complaints, Denies change in vision and Denies other visual disturbances Card Denies chest pain at rest, Denies chest pain with activity, Denies edema, Denies irregular heart rhythm, Denies claudication, Denies dyspnea, Denies dyspnea on exertion, Denies orthopnea, Denies paroxysmal nocturnal dyspnea and Denies slow heart rate Resp Denies cough, Denies dyspnea and Denies dyspnea on exertion GI Denies abdominal pain, Denies change in bowel habits, Denies excessive flatus, Denies nausea and Denies vomiting Denies urinary incontinence, Denies urinary hesitancy and Denies urinary urgency Musc Denies abnormal gait, Denies atrophy, Denies deformity and Denies limited range of motion Skin/Breast Denies bleeding lesions, Denies changing lesions and Denies rash Neuro Denies abnormal gait and Denies lack of coordination Physical exam (Primary Care) Vital Signs: Last Vital Signs BP 118/76 12/03/22 09:23 BMI result Body Mass Index 22.7 Tobacco/Smoking Status: Tobacco use Status Tobacco use date assessed 08/06/22 12/03/22 09:26 Patient Tobacco Use Status Never used Tobacco 12/03/22 09:26 e-Cigarette/Vaping Use Never Used 12/03/22 09:26 Thrive Assessment: Date of Thrive Assessment Date Thrive assessed 08/06/22 12/03/22 09:26 Const Orientation/consciousness: patient oriented x3 HENMT Head: Yes normal to inspection, Yes normocephalic and Yes atraumatic Ears: external ears normal Eyes General: appearance normal, both eyes and all related structures Eyelids: Yes eyelids normal Conjunctivae: conjunctivae normal Neck Neck: Yes normal visual inspection and Yes supple Resp Effort & Inspection: normal respiratory effort Auscultation: clear to auscultation bilaterally Cardio Jugular venous distension: no JVD Rate: regular rate Rhythm: regular rhythm Heart sounds: S1 normal heart sound present and S2 normal heart sound present GI Inspection: Yes normal to inspection Palpation (GI): Soft to palpation and nontender Auscultation: normal bowel sounds Skin General skin exam: no rashes or lesions noted Neuro General: patient oriented x3 and no focal motor deficits Extrem General: Yes full ROM Psych Appearance: grossly normal Assessment and Plan Assessment & Plan (1) Physical exam: Code(s): Z00.00 - Encounter for general adult medical examination without abnormal findings Plan: Repeat in a year Orders: Orders Comprehensive [place]on. Panel Fast Today Z00.00 - Encounter for general adult medical examination without abnormal findings IRON PROFILE Today D64.9 - Anemia, unspecified Lipid Panel Today Z00.00 - Encounter for general adult medical examination without abnormal findings Complete Blood Count Auto Diff Today D64.9 - Anemia, unspecified Medications: New clotrimazole 1% 1 appl topical BID 30 grams 1RF 4 weeks Changed From cetirizine (Zyrtec) 10 mg PO DAILY To cetirizine (Zyrtec) 10 mg PO DAILY PRN 90 tabs 0RF allergy symptoms 90 days From epinephrine 0.3 mL IM DIRECTED To epinephrine 0.3 mL IM DIRECTED PRN 2 ea 1RF anaphylaxis 30 days From ferrous sulfate 325 mg PO BID 3RF To ferrous sulfate 325 mg PO BID 180 tabs 3RF 90 days Refilled fluticasone propionate 50 mcg/actuation administer into each nostril 1 spray intranasal DAILY 16 grams 0RF pzqlniuagjak-bwox-dhzav acid 18-400 mg-mcg (Spectravite Women) 1 tab PO BEDTIME 90 tabs 0RF triamcinolone acetonide 0.025% 1 appl topical DAILY 80 grams 2RF L20.84 - Intrinsic (allergic) eczema Coding Level of Care Code Est Pt Prev Care 18-39y(39189) Diagnoses Physical exam Z00.00 Time Spent (min) 32
== END 2022-12-03 09:50 | disposition home or self-care (01) ==
PROVIDERS: PCP Internal Medicine; Visit Provider Internal Medicine
DX: Z00.00 Encounter for general adult medical examination without abnormal findings (principal)
CPT/HCPCS: 99395

== ENCOUNTER 2022-12-05 10:47 | Outpatient (REF) | payer OTHER, SELFPAY ==
[2022-12-05 11:11] LABS: MANUAL DIFF FLAG NO
[2022-12-05 11:53] LABS: Basophils Percent Auto 0.3 % (0-2); Eosinophils Absolute Auto 0.1 X10*3/uL (0.0-0.4); Eosinophils Percent Auto 3.4 % (0-4); Hematocrit 31.6 % (37.0-47.0); Hemoglobin 10.3 g/dl (12.0-16.0); Imm Gran Abs Auto 0.01 X10*3/uL (0.00-0.03); Imm Gran Pct Auto 0.3 % (0.0-0.4); Lymphocytes Absolute Auto 1.2 X10*3/uL (1.2-4.9); Lymphocytes Percent Auto 33.8 % (20-40); Mean Corpuscular HGB Conc 32.6 g/dl (31.0-35.0); Mean Corpuscular Hemoglobin 26.2 pg (27.0-33.0); Mean Corpuscular Volume 80.4 fL (80.0-98.0); Mean Platelet Volume 12.6 fL (9.4-12.3); Monocytes Absolute Auto 0.3 X10*3/uL (0.1-1.2); Monocytes Percent Auto 9.2 % (2-11); Neutrophils Absolute Auto 1.9 x10*3/uL (2.0-8.3); Platelet Count 165 X10*3/uL (160-400); Red Blood Count 3.93 X10*6/uL (4.20-5.50); Red Cell Distribution Width 12.9 % (11.0-16.0); White Blood Count 3.6 X10*3/uL (4.8-10.8)
[2022-12-05 12:30] LABS: Alanine Aminotransferase 7 U/L (0-31); Albumin Level 4.6 g/dL (3.5-5.0); Alkaline Phosphatase 67 U/L (39-117); Anion Gap 14 (12-20); Aspartate Amino Transferase 21 U/L (5-31); Bilirubin Total 0.5 mg/dL (0.0-1.0); Blood Urea Nitrogen 20 mg/dL (9-16); Calcium 9.8 mg/dL (8.4-10.2); Carbon Dioxide 23 mmol/L (22-29); Chloride 105 mmol/L (96-108); Cholesterol 143 mg/dL (<200); Estimated Glomerular Filt Rate > 60; Glucose Fasting 82 mg/dL (60-99); HDL Cholesterol 46 mg/dL (>40); Iron 51 mcg/dL (30-160); LDL Cholesterol Calculated 79 mg/dL (<100); Percent Iron Saturation 17 % (15-50); Potassium 4.4 mmol/L (3.3-5.1); Sodium 138 mmol/L (135-145); Total Iron Binding Capacity 300 mcg/dL (228-428); Total Protein 7.9 g/dL (6.5-8.0); Triglycerides 94 mg/dL (<150); Unsaturated Iron Binding 249 ug/dL
[2022-12-05 12:46] LABS: Free T4 (Free Thyroxine) 0.81 ng/dL (0.71-1.85); Thyroid Stimulating Hormone 7.07 uIU/mL (0.32-4.0)
[2022-12-07 01:19] LABS: Triiodothyronine T3 Total 120 ng/dL (76-181)
== END 2022-12-05 10:48 | disposition home or self-care (01) ==
LOC: HO.LAB 10:47
PROVIDERS: PCP Internal Medicine; Visit Provider Internal Medicine
DX: Z00.00 Encounter for general adult medical examination without abnormal findings (principal); E05.90 Thyrotoxicosis, unspecified without thyrotoxic crisis or storm; D64.9 Anemia, unspecified
CPT/HCPCS: 36415; 80053; 80061; 83540; 84439; 84443; 84480; 85025

== ENCOUNTER 2022-12-17 10:24 | Outpatient (AMB) | payer OTHER, SELFPAY ==
--- NOTE | 2022-12-17 10:31 | A.OFFVIS_ITS ---
Intake Vital Signs 12/17/22 10:32 Height 5 ft 4 in Weight 131 lb 2 oz BMI 22.5 BP 120/72 Blood Pressure Location Lt brachial Position Sitting Intake Visit Reasons: New patient Annual/DO NOT RS Allergies hazelnut Allergy (Mild, Verified 12/17/22 10:33) WATERY EYES mcconnell [CHERRIES] Allergy (Unknown, Verified 12/17/22 10:33) THROAT SWELLING GUINNEA PIG Allergy (Mild, Uncoded 12/17/22 10:33) WATERY, ITCHY EYES Tree Nuts Allergy (Unknown, Uncoded 12/17/22 10:33) rash Medication List - Last Reconciled 12/17/22 by Becca Strange CNM cetirizine (Zyrtec) 10 mg PO DAILY PRN 90 days clotrimazole 1% 1 appl topical BID 4 weeks cromolyn 4% 1 drp ophthalmic (eye) QID epinephrine 0.3 mL IM DIRECTED PRN 30 days ferrous sulfate 325 mg PO BID 90 days fluticasone propionate 50 mcg/actuation 1 spray intranasal DAILY methimazole 5 mg PO DAILY 30 days varfvrbjjvpa-wrff-hieho acid 18-400 mg-mcg (Spectravite Women) 1 tab PO BEDTIME triamcinolone acetonide 0.025% 1 appl topical DAILY Is last menstrual period known: Yes Last menstrual period: 11/28/22 HPI New patient Annual/DO NOT RS HPI0 Details Patient is here accompanied by her mother. She is 22 years old. She was referred by her primary care provider she has never had sex, she does have a friend. But has not explored this area of her life yet. Patient became teary discussing the possibility of an exam. FORMERLY [facility], [facility] Medical History Iron deficiency anemia Intrinsic eczema Surgical History No pertinent past surgical history Family History Mother Chronic mental illness Hyperthyroidism Maternal Grandfather Cancer Maternal Grandmother Hypertension Diabetes Hypercholesteremia Father No problems noted. Social History Household Members: Family Housing: House Alcohol intake: never Patient Tobacco Use Status: Never used Tobacco e-Cigarette/Vaping Use: Never Used Second Hand Smoke Exposure: No service: No 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al status: unemployed Cognitive needs: No Hearing needs: No Vision needs: Yes Female Reproductive History Menstrual Age of Menarche: 12 Duration of menses: 6-7 days Date of last menstrual period: 11/28/22 control method: none History of STI: No Physical Exam Vital Signs: Last Vital Signs BP 120/72 12/17/22 10:32 BMI result Body Mass Index 22.5 Const General: healthy appearing, comfortable, no acute distress, well developed and alert Nutritional Appearance: average body habitus Orientation/consciousness: patient oriented x3 Limitations: no limitations HEENT Head: Yes normocephalic Neck Neck: Yes normal visual inspection Thyroid: Thyroid normal Chest Chest palpation & inspection: normal inspection of the chest Breast/axilla inspection: normal inspection of the breasts and normal inspection of the axillae Breast/axilla palpation: normal palpation of the breasts and normal palpation of the axillae Resp Effort & Inspection: normal respiratory effort GI Inspection: Yes normal to inspection, No Abdominal wall edema and No distended Palpation (GI): Soft to palpation and nontender External Female Exam: normal external appearance and normal appearance of the urethra Neuro General: patient oriented x3 Assessment & Plan Assessment & Plan (1) Screening for cervical cancer: Comment: 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 Education done about pelvic exams. Patient is virginal and not ready at all for a pelvic exam. Education done patient to be rescheduled when she is ready. She and her mother will investigate Gardasil vaccine. Safer sex, control discussed. 12/17/22 Code(s): Z12.4 - Encounter for screening for malignant neoplasm of cervix (2) Well woman exam (no gynecological exam): Comment: External exam done, teaching about anatomy done. Code(s): Z00.00 - Encounter for general adult medical examination without abnormal findings (3) control counseling: Comment: Teaching done Code(s): Z30.09 - Encounter for other general counseling and advice on contraception Plan Patient is here accompanied by her mother. She is 22 years old. She was referred by her primary care provider she has never had sex, she does have a friend. But has not explored this area of her life yet. Patient became teary discussing the possibility of an exam. Teaching was done about intimacy and safety around exploring sexual boundaries and Pap smear screening and HPV vaccine. Patient and her mother will explore whether not she has been fully vaccinated. Teaching about control was done teaching about a 1st pelvic exam was done. Patient was uncomfortable crossing this boundary for her 1st pelvic and she was informed that this should be when she is ready and while ideally done at age 22 it should never be forced upon her. I would recommend safer sex and a 1st pelvic and condoms if does become sexually active, as well as 1st pelvic and Pap smear and testing for STIs. Teaching also done about control. Patien will be schedule this appointment when she is ready. Coding Level of Care Code New Pt Prev Care 18-39yr(30098 Diagnoses Screening for cervical cancer Z12.4 Well woman exam (no gynecological exam) Z00.00 control counseling Z30.09
[2022-12-17 10:32] VITALS: BP 120/72; BMI 22.5
== END 2022-12-17 11:28 | disposition home or self-care (01) ==
PROVIDERS: Visit Provider Advanced Practice Midwife
DX: Z01.419 Encounter for gynecological examination (general) (routine) without abnormal findings (principal); Z30.09 Encounter for other general counseling and advice on contraception
CPT/HCPCS: 99385

== ENCOUNTER → 2022-12-17 10:24 | Outpatient (BNVA) | payer OTHER, SELFPAY | PROVIDERS: Visit Provider Advanced Practice Midwife | DX: Z12.4 Encounter for screening for malignant neoplasm of cervix (principal) | CPT/HCPCS: 99385 ==

== ENCOUNTER 2023-01-08 14:25 | Outpatient (REF) | payer OTHER, SELFPAY ==
[2023-01-10 02:18] LABS: Triiodothyronine T3 Free 3.4 pg/mL (2.3-4.2)
== END 2023-01-08 14:26 | disposition home or self-care (01) ==
LOC: HO.LAB 14:25
PROVIDERS: PCP Internal Medicine; Visit Provider Internal Medicine Endocrinology, Diabetes & Metabolism
DX: E05.00 Thyrotoxicosis with diffuse goiter without thyrotoxic crisis or storm (principal)
CPT/HCPCS: 36415; 80076; 84439; 84443; 84481; 85025; 99212

== ENCOUNTER 2023-01-08 14:25 | Outpatient (AMB) | payer OTHER, SELFPAY ==
--- NOTE | 2023-01-08 15:03 | MHC.OFFVIS ---
Intake Vital Signs 01/08/23 15:05 Height 5 ft 4 in Weight 131 lb 13.383 oz BMI 22.6 BP 104/60 Blood Pressure Location Rt brachial Position Sitting Pulse 77 Pulse Source Pulse Oximeter Intake Visit Reasons: F/U Hyperthyroidism-LVM Intake Note: New patient to Dr. Adams present today for Hyperthyroidism follow up visit. Previously followed by Dr. Tobar. Personnel Psychologist Required: No Accompanied by: Mother Allergies hazelnut Allergy (Mild, Verified 01/08/23 15:08) WATERY EYES mcconnell [CHERRIES] Allergy (Unknown, Verified 01/08/23 15:08) THROAT SWELLING GUINNEA PIG Allergy (Mild, Uncoded 12/17/22 10:33) WATERY, ITCHY EYES Tree Nuts Allergy (Unknown, Uncoded 12/17/22 10:33) rash HPI HPI Comments History of Present Illness Details 22 YO F with no significant PMHx who is seen in F/U for Grave's Disease. The patient last saw Dr. Tobar on 09/22/2022 She states she feels well and has no specific complaints today. She did notice a swelling in her neck and presented to her PCP. She was found to have a diffuse, symmetric goiter. TFTs revealed hyperthyroidism. Labs revealed positive TSI, TRAB, TG and TPO antibodies. She was diagnosed with Grave's disease. She was started on Methimazole 10 mg PO BID, and uptitrated to 10 mg PO TID. I had also prescribed propranolol 10 mg PO TID but she did not start this. She was compliant with this, but subsequently developed profound hypothyroidism with TSH >80. Methimazole was stopped and labs repeated 2 weeks later. Repeat labs did reveal that her hyperthyroidism had returned with elevated TT3. Methimazole was resumed and dose titrated to her current dose of methimazole 5 mg PO daily. She is due for repeat labs now. She is currently denying any symptoms of hyperthyroidism. Mother also with a history of Grave's disease. Of note, she did have COVID in November 2021. Thyroid US: 02/18/2022 Right Thyroid Lobe: 4.3 x 2.4 x 2.4 cm, volume 12.9 mL. Parenchyma: The gland echotexture is heterogeneous. Thyroid vascularity is hypervascular. Left Thyroid Lobe: 4.8 x 2 0.5-2.0 cm, volume 12.4 mL. Parenchyma: The gland echotexture is heterogeneous. Thyroid vascularity is hypervascular. Isthmus: 0.7 cm in maximum AP dimension. Estimated total number of nodules greater than or equal to 1 cm: 0. There are no nodules visualized in either gland. NODES: No lymphadenopathy is seen in the tissue surrounding the thyroid gland. Labs: Laboratory Tests 09/10/22 09/10/22 12:11 12:11 TSH 19.87 H Free T4 0.60 L Total T3 105 Having thyroidectomy on 03/04/2023 [facility] Medical History Iron deficiency anemia Intrinsic eczema Surgical History No pertinent past surgical history Family History Mother Chronic mental illness Hyperthyroidism Maternal Grandfather Cancer Maternal Grandmother Hypertension Diabetes Hypercholesteremia Father No problems noted. Social History Household Members: Family Housing: House Alcohol intake: never Patient Tobacco Use Status: Never used Tobacco e-Cigarette/Vaping Use: Never Used Second Hand Smoke Exposure: No service: No 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al status: unemployed Cognitive needs: No Hearing needs: No Vision needs: Yes Female Reproductive History Menstrual Age of Menarche: 12 Physical Exam Const Other: Thyroid gland is large in size weighs about 60 g. There are no thyroid nodules palpated Assessment & Plan Assessment & Plan (1) Hyperthyroidism: Code(s): E05.90 - Thyrotoxicosis, unspecified without thyrotoxic crisis or storm Plan: This 22-year-old female with a history of Graves disease and hyperthyroidism currently being treated methimazole 5 mg q.d.. She appears to be clinically euthyroid. Plan is to recheck thyroid function studies, liver panel and CBC adjust methimazole accordingly. Explained different options of treatment for Graves disease and hyperthyroidism including the use of radioactive iodine and surgery as well as continues to methimazole. Patient and her caregiver is not sure what option she wants to take but i or steering during toward surgery which would take place February 2023 Orders: Orders Thyroid Stimulating Hormone Today E05.90 - Thyrotoxicosis, unspecified without thyrotoxic crisis or storm Free T4 (Free Thyroxine) Today E0 - Thyrotoxicosis, unspecified without thyrotoxic crisis or storm Triiodothyronine T3 Free Today - Thyrotoxicosis, unspecified without thyrotoxic crisis or storm Complete Blood Count Auto Diff Today - Thyrotoxicosis, unspecified without thyrotoxic crisis or storm Liver Panel Today - Thyrotoxicosis, unspecified without thyrotoxic crisis or storm Coding Level of Care Code Est Pt Level 3 (22107) Diagnoses Hyperthyroidism
[2023-01-08 15:05] VITALS: BP 104/60; PULSE 77; BMI 22.6
== END 2023-01-08 15:54 | disposition home or self-care (01) ==
PROVIDERS: PCP Internal Medicine; Visit Provider Internal Medicine Endocrinology, Diabetes & Metabolism
DX: E05.90 Thyrotoxicosis, unspecified without thyrotoxic crisis or storm (principal)
CPT/HCPCS: 99213

== ENCOUNTER 2023-01-16 14:29 | Outpatient (REF) | payer OTHER, SELFPAY ==
[2023-01-17 15:34] LABS: BV Int Neg Control Negative (Negative); BV Int Pos Control Positive (Positive)
== END 2023-01-16 14:30 | disposition home or self-care (01) ==
LOC: HO.LNP 14:29
PROVIDERS: PCP Internal Medicine; Visit Provider Advanced Practice Midwife
DX: N94.9 Unspecified condition associated with female genital organs and menstrual cycle (principal); N89.8 Other specified noninflammatory disorders of vagina
CPT/HCPCS: 87480; 87510; 87660; 99212

== ENCOUNTER 2023-01-16 14:29 | Outpatient (AMB) | payer OTHER, SELFPAY ==
[2023-01-16 14:42] VITALS: BP 108/66; BMI 22.3
--- NOTE | 2023-01-16 14:42 | A.OFFVIS_ITS ---
Intake Vital Signs 01/16/23 14:42 Height 5 ft 4 in Weight 130 lb 1.164 oz BMI 22.3 BP 108/66 Intake Visit Reasons: vag burning/redness Insurance Adjustor Required: No Information Interpreted: non-clinical & clinical Delivery Rep: Delivery Rep Present (Sonja Ortega) Accompanied by: Self / Same As Patient Allergies hazelnut Allergy (Mild, Verified 01/16/23 14:43) WATERY EYES mcconnell [CHERRIES] Allergy (Unknown, Verified 01/16/23 14:43) THROAT SWELLING GUINNEA PIG Allergy (Mild, Uncoded 01/16/23 14:43) WATERY, ITCHY EYES Tree Nuts Allergy (Unknown, Uncoded 01/16/23 14:43) rash Is last menstrual period known: Yes Last menstrual period: 12/17/22 HPI HPI Comments History of Present Illness Details Reports vaginal burning and itching and uses a OTC cream given by mom which is helping. Has never been sexually active. Has never had a pelvic exam before. Denies urinary symptoms, pelvic pain or increase in sugar intake. 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 [facility]LY [facility] Medical History Iron deficiency anemia Intrinsic eczema Surgical History No pertinent past surgical history Family History Mother Chronic mental illness Hyperthyroidism Maternal Grandfather Cancer Maternal Grandmother Hypertension Diabetes Hypercholesteremia Father No problems noted. Social History Household Members: Family Housing: House Alcohol intake: never Patient Tobacco Use Status: Never used Tobacco e-Cigarette/Vaping Use: Never Used Second Hand Smoke Exposure: No service: No 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al status: unemployed Cognitive needs: No Hearing needs: No Vision needs: Yes Female Reproductive History Menstrual Age of Menarche: 12 Date of last menstrual period: 12/17/22 Physical Exam Vital Signs: Last Vital Signs BP 108/66 01/16/23 14:42 BMI result Body Mass Index 22.3 Const General: cooperative, healthy appearing, comfortable, no acute distress, well developed, alert and awake Other: limited exam due to patients first pelvis exam and unable to insert the speculum completely and visualize the cervix. External Female Exam: normal external appearance, normal appearance of the urethra and erythema (mild) Speculum Exam - Vagina: normal appearance of the vagina and abnormal vaginal discharge white (watery) Assessment & Plan Assessment & Plan (1) Vaginal burning: Code(s): N94.9 - Unspecified condition associated with female genital organs and menstrual cycle Plan: Discussed: BV testing and GC/CT panel done today. Await results and treat accordingly. Rx sent to pharmacy. Advised to contact PCP regarding HSV and Rx. Encouraged to use condoms for STD and prevention if become sexually active. Encouraged patient to sign up for patient portal. Advised to clean with water only, no soaps to the area, dry well, apply cool cloth and wear cotton underwear. All of her questions and concerns were addressed to the best of my ability and shared decision making. She is agreeable to plan of care. RTO for AG (2) Vaginal itching: Code(s): N89.8 - Other specified noninflammatory disorders of vagina Orders: Orders Bacterial Vaginosis Panel Today Z00.00 - Encounter for general adult medical examination without abnormal findings Medications: New clotrimazole-betamethasone 1-0.05 % apply externally a thin coat to the area 1 appl topical BID 45 grams 0RF itching 7 days Coding Level of Care Code Est Pt Level 3 (08029) Diagnoses Vaginal burning N94.9 Vaginal itching N89.8
== END 2023-01-16 15:10 | disposition home or self-care (01) ==
PROVIDERS: PCP Internal Medicine; Visit Provider Advanced Practice Midwife
DX: N94.9 Unspecified condition associated with female genital organs and menstrual cycle (principal); N89.8 Other specified noninflammatory disorders of vagina
CPT/HCPCS: 99213

== ENCOUNTER 2023-02-13 12:11 | Outpatient (REF) | payer OTHER, SELFPAY ==
[2023-02-13 12:24] LABS: MANUAL DIFF FLAG NO
[2023-02-13 13:00] LABS: Basophils Percent Auto 0.4 % (0-2); Eosinophils Absolute Auto 0.3 X10*3/uL (0.0-0.4); Eosinophils Percent Auto 6.5 % (0-4); Hematocrit 32.4 % (37.0-47.0); Hemoglobin 10.2 g/dl (12.0-16.0); Imm Gran Abs Auto 0.01 X10*3/uL (0.00-0.03); Imm Gran Pct Auto 0.2 % (0.0-0.4); Lymphocytes Absolute Auto 1.7 X10*3/uL (1.2-4.9); Lymphocytes Percent Auto 37.1 % (20-40); Mean Corpuscular HGB Conc 31.5 g/dl (31.0-35.0); Mean Corpuscular Hemoglobin 25.1 pg (27.0-33.0); Mean Corpuscular Volume 79.6 fL (80.0-98.0); Mean Platelet Volume 12.7 fL (9.4-12.3); Monocytes Absolute Auto 0.4 X10*3/uL (0.1-1.2); Monocytes Percent Auto 9.1 % (2-11); Neutrophils Absolute Auto 2.2 x10*3/uL (2.0-8.3); Neutrophils Percent Auto 46.7 % (45-73); Platelet Count 183 X10*3/uL (160-400); Red Blood Count 4.07 X10*6/uL (4.20-5.50); Red Cell Distribution Width 13.9 % (11.0-16.0); White Blood Count 4.6 X10*3/uL (4.8-10.8)
[2023-02-13 14:06] LABS: Alanine Aminotransferase 5 U/L (0-31); Albumin Level 4.7 g/dL (3.5-5.0); Alkaline Phosphatase 64 U/L (39-117); Aspartate Amino Transferase 15 U/L (5-31); Bilirubin Direct 0.1 mg/dL (0.0-0.5); Bilirubin Total 0.4 mg/dL (0.0-1.0); Total Protein 7.7 g/dL (6.5-8.0)
[2023-02-13 14:07] LABS: Free T4 (Free Thyroxine) 0.93 ng/dL (0.71-1.85); Thyroid Stimulating Hormone 2.55 uIU/mL (0.32-4.0)
[2023-02-14 17:28] LABS: Triiodothyronine T3 Free 3.1 pg/mL (2.3-4.2)
== END 2023-02-13 12:12 | disposition home or self-care (01) ==
LOC: HO.LAB 12:11
PROVIDERS: PCP Internal Medicine; Referring Provider Surgery; Visit Provider Internal Medicine Endocrinology, Diabetes & Metabolism
DX: E05.90 Thyrotoxicosis, unspecified without thyrotoxic crisis or storm (principal)
CPT/HCPCS: 36415; 80076; 84439; 84443; 84481; 85025

== ENCOUNTER 2023-04-10 08:59 | Outpatient (REF) | payer OTHER, SELFPAY | END 2023-04-10 09:00 | disposition home or self-care (01) | LOC: HO.LAB 08:59 | PROVIDERS: PCP Internal Medicine Endocrinology, Diabetes & Metabolism; Visit Provider Internal Medicine | DX: Z13.89 Encounter for screening for other disorder (principal) ==

== ENCOUNTER 2023-05-14 13:26 | Outpatient (AMB) | payer OTHER, SELFPAY ==
--- NOTE | 2023-05-14 13:34 | MHC.OFFWIV ---
Intake Vital Signs 05/14/23 13:35 Height 5 ft 4 in Weight 128 lb BMI 22.0 BP 132/84 Blood Pressure Location Lt brachial Position Sitting Pulse 89 Pulse Source Pulse Oximeter Temp 97.5 F Temp Source Temporal Artery Scan Pulse Oximetry (%) 98 Oxygen Delivery Method Room Air Intake Visit Reasons: EP ingrown toenail RT foot Intake Note: pt is here today for ingrown toenail started yesterday Patient Tobacco Use Status: Never used Tobacco Allergies hazelnut Allergy (Mild, Verified 05/14/23 13:37) WATERY EYES mcconnell [CHERRIES] Allergy (Unknown, Verified 05/14/23 13:37) THROAT SWELLING GUINNEA PIG Allergy (Mild, Uncoded 04/10/23 09:18) WATERY, ITCHY EYES Tree Nuts Allergy (Unknown, Uncoded 04/10/23 09:18) rash Do you need a note to return to daycare/school/sports/work: No HPI HPI Comments History of Present Illness Details 23 y/o female presents to walk in clinic with c/o right foot big toe ingrown nail. Pt was trimming her ntoe nails yesterday. [facility] Medical History Iron deficiency anemia Intrinsic eczema Surgical History No pertinent past surgical history Family History Mother Chronic mental illness Hyperthyroidism Maternal Grandfather Cancer Maternal Grandmother Hypertension Diabetes Hypercholesteremia Father No problems noted. Social History Household Members: Family Housing: House Alcohol intake: never Patient Tobacco Use Status: Never used Tobacco e-Cigarette/Vaping Use: Never Used Second Hand Smoke Exposure: No service: No 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al status: unemployed Cognitive needs: No Hearing needs: No Vision needs: Yes Female Reproductive History Menstrual Age of Menarche: 12 Review of Systems Const All systems reviewed & are unremarkable except as noted in HPI and below Physical Exam Vital Signs: Last Vital Signs Temp 97.5 F 05/14/23 13:35 Pulse 89 05/14/23 13:35 BP 132/84 05/14/23 13:35 Pulse Ox 98 05/14/23 13:35 Oxygen Delivery Method Room Air 05/14/23 13:35 BMI result Body Mass Index 22.0 Skin Other: Small area of redness on right big toe nail. Normal skin color. Normal ROM toes. Normal gain. Mild swelling big toe. No signs of infection at this time. Extrem Ankle/foot/toe images: 1. right big toe ingrown nail. Assessment & Plan Assessment & Plan (1) Ingrown nail of great toe: Code(s): L60.0 - Ingrowing nail Plan: - Topical Abx to prevent infection - Keep the toe clean and uncovered - Wear open toe shoes Coding Level of Care Code Est Pt Level 3 (04281) Diagnoses Ingrown nail of great toe L60.0 Time Spent (min) 15
[2023-05-14 13:35] VITALS: BP 132/84; PULSE 89; TEMP 36.4; O2SAT 98; BMI 22.0
== END 2023-05-14 14:40 | disposition home or self-care (01) ==
PROVIDERS: PCP Internal Medicine; Visit Provider Nurse Practitioner Family
DX: L60.0 Ingrowing nail (principal)
CPT/HCPCS: 99213

== ENCOUNTER 2023-05-15 16:07 | Outpatient (AMB) | payer OTHER, SELFPAY ==
[2023-05-15 16:12] VITALS: BP 128/84; PULSE 85; O2SAT 99; BMI 22.2
--- NOTE | 2023-05-15 16:12 | A.OFFPC_ITS ---
Vital Signs 05/15/23 16:12 Height 5 ft 4 in Weight 129 lb 6 oz BMI 22.2 BP 128/84 Blood Pressure Location Lt brachial Position Sitting Pulse 85 Pulse Source Pulse Oximeter Pulse Oximetry (%) 99 Oxygen Delivery Method Room Air Intake Visit Reasons: ?Toe cyst Manager Cosmetic Required: No Accompanied by: Self / Same As Patient Allergies hazelnut Allergy (Mild, Verified 05/15/23 16:47) WATERY EYES mcconnell [CHERRIES] Allergy (Unknown, Verified 05/15/23 16:47) THROAT SWELLING GUINNEA PIG Allergy (Mild, Uncoded 05/15/23 16:47) WATERY, ITCHY EYES Tree Nuts Allergy (Unknown, Uncoded 05/15/23 16:47) rash Medication List - Last Reconciled 05/15/23 by Luke Parker MD clotrimazole 1% 1 appl topical BID 4 weeks cromolyn 4% 1 drp ophthalmic (eye) QID epinephrine 0.3 mL IM DIRECTED PRN 30 days ferrous sulfate 325 mg PO BID 90 days fluticasone propionate 50 mcg/actuation 1 spray intranasal DAILY levothyroxine 100 mcg PO DAILY nmcbtnmtapfz-xkhk-pkbxp acid 18-400 mg-mcg (Spectravite Women) 1 tab PO BEDTIME triamcinolone acetonide 0.025% 1 appl topical DAILY Tobacco use date assessed: 05/15/23 Dental Screening Dental Screen Date: 05/15/23 Did you have a dental visit in the last 12 months?: Yes Did you have a dental problem in the last 6 months where you did not have access to dental care?: No Was dental information given to patient?: Patient has dentist HPI ?Toe cyst HPI Details Patient comes in today complaining of increasing pain over the medial corner of her right big toenail since this morning Notes that the medial side of her right big toenail appears swollen and feels painful Relates (+) history of ingrown toenails States that she has covered up her big toe with some bandages since this morning but it does not do much No other acute complaints or symptoms are noted PFSH Medical History Iron deficiency anemia Intrinsic eczema Surgical History No pertinent past surgical history Family History Mother Chronic mental illness Hyperthyroidism Maternal Grandfather Cancer Maternal Grandmother Hypertension Diabetes Hypercholesteremia Father No problems noted. Social History Household Members: Family Housing: House Alcohol intake: never Patient Tobacco Use Status: Never used Tobacco e-Cigarette/Vaping Use: Never Used Second Hand Smoke Exposure: No service: No 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al status: unemployed Cognitive needs: No Hearing needs: No Vision needs: Yes Female Reproductive History Menstrual Age of Menarche: 12 Questionnaire PHQ-9 Over the last 2 weeks, how often have you been bothered by any of the following problems? 1. Little interest or pleasure in doing things: not at all 2. Feeling down, depressed, or hopeless: not at all 3. Trouble falling or staying asleep, or sleeping too much: not at all 4. Feeling tired or having little energy: not at all 5. Poor appetite or overeating: not at all 6. Feeling bad about yourself - or that you are a failure or have let yourself or your family down: not at all 7. Trouble concentrating on things, such as reading the newspaper or watching television: not at all 8. Moving or speaking so slowly that other people could have noticed. Or the opposite - being so fidgety or restless that you have been moving around a lot more than usual: not at all 9. Thoughts that you would be better off or of hurting yourself in some way: not at all Total score: 0 Depression Screening Interpretation: Negative Depression Screening Done: Yes 69804 - PHQ-9 Billing: Yes Source: Developed by Drs. Gee Garcia, Carol Sanchez, Erasto Lord and colleagues, with an educational vanda from [employer]. Thrive Questionnaire Date Thrive assessed: 05/15/23 I am a: Patient What is your living situation today?: I have a steady place to live Within the past 12 months, did the food you bought not last and you didn't have the money to get more?: Never true Within the past 12 months, did you worry whether your food would run out before you got money to buy more?: Never true Do you have trouble paying for medicines?: No Do you have trouble getting transportation to medical appointments?: No Do you have trouble paying your heating and electricity bill?: No Do you have trouble taking care of your child, family member or friend?: No Do you have trouble with day-to-day activities such as bathing, preparing meals, shopping, managing finances, etc.?: No Are you currently unemployed and looking for a job?: No Are you interested in more education?: No Please select the resources that you would like help with: None Currently or been in a relationship where the following occur: no concerns reported THRIVE Score: 0 AUDIT C Alcohol Use Questionnaire (AUDIT-C) 1. How often do you have a drink containing alcohol?: Never Total Score: 0 Score Reviewed/Action Taken: Yes JUSTIN-7 AMB Questionnaire JUSTIN-7 Date JUSTIN - 7 assessed: 05/15/23 Feeling nervous, anxious, or on edge: 0 = Not at all Not being able to stop or control worryin = Not at all Worrying too much about different things: 0 = Not at all Trouble relaxin = Not at all Being so restless that it is hard to sit still: 0 = Not at all Becoming easily annoyed or irritable: 0 = Not at all Feeling afraid as if something awful might happen: 0 = Not at all Total JUSTIN-7 score (0-4 normal; 5-9 mild; 10-14 moderate; 15-21 severe): 0 Source: Developed by Drs. Gee Garcia, Carol Sanchez, Erasto Lord and colleagues, with an educational vanda from [employer]. Review of Systems Const Denies fatigue, Denies fever(s) and Denies headache(s) ENT Denies dizziness, Denies headache(s), Denies neck pain and Denies sore throat Card Denies chest pain, Denies palpitations and Denies dyspnea Resp Denies cough and Denies dyspnea GI Denies abdominal pain, Denies constipation, Denies diarrhea, Denies nausea and Denies vomiting Musc Denies neck pain Neuro Denies dizziness and Denies headache(s) Endo Denies fatigue and Denies palpitations Physical exam (Primary Care) Vital Signs: Last Vital Signs Pulse 85 05/15/23 16:12 BP 128/84 05/15/23 16:12 Pulse Ox 99 05/15/23 16:12 Oxygen Delivery Method Room Air 05/15/23 16:12 BMI result Body Mass Index 22.2 Tobacco/Smoking Status: Tobacco use Status Tobacco use date assessed 05/15/23 05/15/23 16:17 Patient Tobacco Use Status Never used Tobacco 05/15/23 16:17 e-Cigarette/Vaping Use Never Used 05/15/23 16:17 PHQ-9: PHQ-9 Score PHQ-9: Total score 0 05/15/23 16:55 Depression Screening Interpretation: Negative Thrive Assessment: Date of Thrive Assessment Date Thrive assessed 05/15/23 05/15/23 16:17 Currently or been in a relationship where the following occur: no concerns reported Const General: no acute distress and alert Neck Neck: Yes no lymphadenopathy and Yes supple Resp Auscultation: clear to auscultation bilaterally Cardio Rate: regular rate Rhythm: regular rhythm Heart sounds: no murmurs GI Palpation (GI): Soft to palpation and nontender Extrem General: Yes no clubbing, cyanosis or edema Right lower extremity: foot ((+)tenderness and swelling over the medial side of the right big toe) Assessment and Plan Assessment & Plan (1) Cellulitis of great toe, right: Code(s): L03.031 - Cellulitis of right toe Plan: Will start patient on Cephalexin 500 mg Q 8 hours x 7 days She is also advised to soak her toe in clean and warm Epsom salts solution BID to TID PRN (2) Ingrown right big toenail: Code(s): L60.0 - Ingrowing nail Plan: Will refer her to podiatry for further management Plan To return as scheduled in December 2023 for her annual physical examination with her PCP Orders: Referrals Podiatry Referral L60.0 - Ingrowing nail Medications: New cephalexin 500 mg PO Q8H 7 days 21 caps 0RF Coding Level of Care Code Est Pt Level 3 (52694) Diagnoses Cellulitis of great toe, right L03.031 Ingrown right big toenail L60.0
== END 2023-05-15 17:01 | disposition home or self-care (01) ==
PROVIDERS: PCP Internal Medicine; Visit Provider Internal Medicine
DX: L03.031 Cellulitis of right toe (principal); L60.0 Ingrowing nail
CPT/HCPCS: 99213

== ENCOUNTER 2023-05-21 11:19 | Outpatient (AMB) | payer OTHER, SELFPAY ==
[2023-05-21 11:38] VITALS: BP 106/70; PULSE 70; BMI 22.6
--- NOTE | 2023-05-21 11:38 | MHC.OFFVIS ---
Intake Vital Signs 05/21/23 11:38 Height 5 ft 4 in Weight 131 lb 6.328 oz BMI 22.6 BP 106/70 Blood Pressure Location Lt brachial Position Sitting Pulse 70 Pulse Source Pulse Oximeter Intake Visit Reasons: f/u hyperthyroidism Intake Note: Patient present today for Hyperthyroidism follow up visit. Integration Manager Required: No Accompanied by: Mother Allergies hazelnut Allergy (Mild, Verified 05/21/23 11:44) WATERY EYES mcconnell [CHERRIES] Allergy (Unknown, Verified 05/21/23 11:44) THROAT SWELLING GUINNEA PIG Allergy (Mild, Uncoded 05/21/23 11:44) WATERY, ITCHY EYES Tree Nuts Allergy (Unknown, Uncoded 05/21/23 11:44) rash HPI HPI Comments History of Present Illness Details 23 YO F with no significant PMHx who is seen in F/U for Grave's Disease. She states she feels well and has no specific complaints today. She did notice a swelling in her neck and presented to her PCP. She was found to have a diffuse, symmetric goiter. TFTs revealed hyperthyroidism. Labs revealed positive TSI, TRAB, TG and TPO antibodies. She was diagnosed with Grave's disease. She was started on Methimazole 10 mg PO BID, and uptitrated to 10 mg PO TID. I had also prescribed propranolol 10 mg PO TID but she did not start this. She was compliant with this, but subsequently developed profound hypothyroidism with TSH >80. Methimazole was stopped and labs repeated 2 weeks later. Repeat labs did reveal that her hyperthyroidism had returned with elevated TT3. Methimazole was resumed and dose titrated to her current dose of methimazole 5 mg PO daily. She is due for repeat labs now. She is currently denying any symptoms of hyperthyroidism. Mother also with a history of Grave's disease. Of note, she did have COVID in November 2021. Thyroid US: 02/18/2022 Right Thyroid Lobe: 4.3 x 2.4 x 2.4 cm, volume 12.9 mL. Parenchyma: The gland echotexture is heterogeneous. Thyroid vascularity is hypervascular. Left Thyroid Lobe: 4.8 x 2 0.5-2.0 cm, volume 12.4 mL. Parenchyma: The gland echotexture is heterogeneous. Thyroid vascularity is hypervascular. Isthmus: 0.7 cm in maximum AP dimension. Estimated total number of nodules greater than or equal to 1 cm: 0. There are no nodules visualized in either gland. NODES: No lymphadenopathy is seen in the tissue surrounding the thyroid gland. Labs: Laboratory Tests 09/10/22 09/10/22 12:11 12:11 TSH 19.87 H Free T4 0.60 L Total T3 105 S/P thyroidectomy on 03/04/2023 with benign pathology . Currently on 100 mcg levothyroxine [facility] Medical History (Updated 05/21/23 @ 11:51 by Gee Adams MD) Hypothyroidism, postop Iron deficiency anemia Intrinsic eczema Surgical History Hx of thyroidectomy No pertinent past surgical history Family History Mother Chronic mental illness Hyperthyroidism Maternal Grandfather Cancer Maternal Grandmother Hypertension Diabetes Hypercholesteremia Father No problems noted. Social History Household Members: Family Housing: House Alcohol intake: never Patient Tobacco Use Status: Never used Tobacco e-Cigarette/Vaping Use: Never Used Second Hand Smoke Exposure: No service: No 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al status: unemployed Cognitive needs: No Hearing needs: No Vision needs: Yes Female Reproductive History Menstrual Age of Menarche: 12 Physical Exam Vital Signs: Last Vital Signs Pulse 70 05/21/23 11:38 BP 106/70 05/21/23 11:38 BMI result Body Mass Index 22.6 Const Other: Healing scar status post thyroidectomy Assessment & Plan Assessment & Plan (1) Hypothyroidism, postop: Code(s): E89.0 - Postprocedural hypothyroidism Plan: This is a 23-year-old female with a history of post-surgical hypothyroidism currently replaced on 100 mcg levothyroxine. She appears to be clinically euthyroid but has elevated TSH level. She claims compliance with levothyroxine is administering levothyroxine correctly Plan is to increase levothyroxine to 125 mcg recheck TSH and free T4 in 6 weeks time Orders: Orders Free T4 (Free Thyroxine) 6 Weeks E89.0 - Postprocedural hypothyroidism Thyroid Stimulating Hormone 6 Weeks E89.0 - Postprocedural hypothyroidism Medications: New levothyroxine 125 mcg PO DAILY 90 tabs 3RF Discontinued levothyroxine Discontinued Reason: Doctor's Order 100 mcg PO DAILY 30 tabs 5RF Coding Level of Care Code Est Pt Level 3 (51167) Diagnoses Hypothyroidism, postop E89.0
== END 2023-05-21 11:57 | disposition home or self-care (01) ==
PROVIDERS: PCP Internal Medicine; Visit Provider Internal Medicine Endocrinology, Diabetes & Metabolism
DX: E89.0 Postprocedural hypothyroidism (principal)
CPT/HCPCS: 99213

== ENCOUNTER → 2023-05-21 11:19 | Outpatient (BNVA) | payer OTHER, SELFPAY | PROVIDERS: PCP Internal Medicine; Visit Provider Internal Medicine Endocrinology, Diabetes & Metabolism | DX: E89.0 Postprocedural hypothyroidism (principal) | CPT/HCPCS: 99212 ==

== ENCOUNTER 2023-06-11 11:53 | Outpatient (AMB) | payer OTHER, SELFPAY ==
[2023-06-11 13:17] VITALS: BP 130/90; PULSE 107; TEMP 36.6; O2SAT 99; BMI 22.0
--- NOTE | 2023-06-11 13:17 | AM.OFFWIN_ITS ---
Intake Vital Signs 06/11/23 13:17 Height 5 ft 4 in Weight 128 lb BMI 22.0 BP 130/90 H Blood Pressure Location Rt brachial Position Sitting Pulse 107 H Pulse Source Pulse Oximeter Temp 97.8 F Temp Source Oral Pulse Oximetry (%) 99 Oxygen Delivery Method Room Air Intake Visit Reasons: EST/sore throat ([phone]) Intake Note: pt is here today for sore throat started 2 days ago Patient Tobacco Use Status: Never used Tobacco Allergies hazelnut Allergy (Mild, Verified 06/11/23 13:18) WATERY EYES mcconnell [CHERRIES] Allergy (Unknown, Verified 06/11/23 13:18) THROAT SWELLING GUINNEA PIG Allergy (Mild, Uncoded 05/21/23 11:44) WATERY, ITCHY EYES Tree Nuts Allergy (Unknown, Uncoded 05/21/23 11:44) rash Do you need a note to return to daycare/school/sports/work: Yes HPI EST/sore throat ([phone]) HPI Details This is a 23-year-old female patient who presents today with her mother for evaluation of sore throat x2 days. Reports very painful swallowing, poor appetite, body aches. Denies any cough, shortness of breath, nasal congestion, GI symptoms. Exposure to grandmother who is also ill with a sore throat. Denies fever or chills. [facility] Medical History Hypothyroidism, postop Iron deficiency anemia Intrinsic eczema Surgical History Hx of thyroidectomy No pertinent past surgical history Family History Mother Chronic mental illness Hyperthyroidism Maternal Grandfather Cancer Maternal Grandmother Hypertension Diabetes Hypercholesteremia Father No problems noted. Social History Household Members: Family Housing: House Alcohol intake: never Patient Tobacco Use Status: Never used Tobacco e-Cigarette/Vaping Use: Never Used Second Hand Smoke Exposure: No service: No 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al status: unemployed Cognitive needs: No Hearing needs: No Vision needs: Yes Female Reproductive History Menstrual Age of Menarche: 12 Review of Systems Const All systems reviewed & are unremarkable except as noted in HPI and below Physical Exam Vital Signs: Last Vital Signs Temp 97.8 F 06/11/23 13:17 Pulse 107 H 06/11/23 13:17 BP 130/90 H 06/11/23 13:17 Pulse Ox 99 06/11/23 13:17 Oxygen Delivery Method Room Air 06/11/23 13:17 BMI result Body Mass Index 22.0 Const General: cooperative and ill appearing acutely Nutritional Appearance: average body habitus HEENT Head: Yes normal to inspection Ears: hearing grossly normal bilaterally, external ears normal and TM's normal bilaterally General nose exam: Normal external nose present and Normal nares present Face and sinus: Yes normal facial exam Throat: Yes posterior oropharynx abnormal (erythema, exudate) Neck Neck: Yes no lymphadenopathy Resp Effort & Inspection: normal respiratory effort Auscultation: clear to auscultation bilaterally Cardio Palpation: normal PMI Rate: regular rate Rhythm: regular rhythm Skin General skin exam: no rashes or lesions noted Extrem General: Yes capillary refill normal and Yes no clubbing, cyanosis or edema Psych Appearance: grossly normal Mental Status: mental status grossly normal Speech and movement: Normal speech and movement present Results AMB Rapid Strep AMB Rapid Strep Negative Last Edit by Jerri Daniel CMA on 06/11/23 13:36 Assessment & Plan Assessment & Plan (1) Pharyngitis: Code(s): J02.9 - Acute pharyngitis, unspecified Qualifiers: Pharyngitis/tonsillitis etiology: unspecified etiology Qualified Code(s): J02.9 - Acute pharyngitis, unspecified Plan: Symptoms consistent with strep pharyngitis, and grandmother is currently being treated for the same. Rapid strep in the office was negative, however will treat with Pen V 10 days. We reviewed indications, use, possible side effects of medication. May take tylenol/motrin as needed for pain/fever. May also utilize conservative measures with lozenges, tea with honey, salt water gargles. If she does not improve with treatment, or if symptoms worsen, she can return to the clinic for further evaluation. She and mother present at visit verbalize understanding and agrees to plan. School note provided. Orders: Orders AMB Rapid Strep Screen Today Z13.9 - Encounter for screening, unspecified Medications: New penicillin V potassium 500 mg PO BID 20 tabs 0RF 10 days J02.0 - Streptococcal pharyngitis Coding Level of Care Code Est Pt Level 3 (95751) Diagnoses Pharyngitis, unspecified etiology J02.9 Pharyngitis/tonsillitis etiology: unspecified etiology
== END 2023-06-11 14:01 | disposition home or self-care (01) ==
PROVIDERS: PCP Internal Medicine; Visit Provider Nurse Practitioner Family
DX: J02.9 Acute pharyngitis, unspecified (principal)
CPT/HCPCS: 87880; 99213

== ENCOUNTER 2023-07-02 12:25 | Outpatient (REF) | payer OTHER, SELFPAY ==
[2023-07-02 12:37] LABS: MANUAL DIFF FLAG NO
[2023-07-02 14:00] LABS: Basophils Percent Auto 0.3 % (0-2); Eosinophils Absolute Auto 0.2 X10*3/uL (0.0-0.4); Eosinophils Percent Auto 2.8 % (0-4); Hematocrit 35.5 % (37.0-47.0); Hemoglobin 11.5 g/dl (12.0-16.0); Imm Gran Abs Auto 0.01 X10*3/uL (0.00-0.03); Imm Gran Pct Auto 0.2 % (0.0-0.4); Lymphocytes Absolute Auto 1.7 X10*3/uL (1.2-4.9); Lymphocytes Percent Auto 29.6 % (20-40); Mean Corpuscular HGB Conc 32.4 g/dl (31.0-35.0); Mean Corpuscular Hemoglobin 27.1 pg (27.0-33.0); Mean Corpuscular Volume 83.5 fL (80.0-98.0); Monocytes Absolute Auto 0.6 X10*3/uL (0.1-1.2); Monocytes Percent Auto 9.5 % (2-11); Neutrophils Absolute Auto 3.3 x10*3/uL (2.0-8.3); Neutrophils Percent Auto 57.6 % (45-73); Platelet Count 235 X10*3/uL (160-400); Red Blood Count 4.25 X10*6/uL (4.20-5.50); Red Cell Distribution Width 13.5 % (11.0-16.0); White Blood Count 5.8 X10*3/uL (4.8-10.8)
[2023-07-02 14:34] LABS: Alanine Aminotransferase 10 U/L (0-31); Albumin Level 4.7 g/dL (3.5-5.0); Alkaline Phosphatase 62 U/L (39-117); Aspartate Amino Transferase 16 U/L (5-31); Bilirubin Direct 0.2 mg/dL (0.0-0.5); Bilirubin Total 0.5 mg/dL (0.0-1.0); Total Protein 8.2 g/dL (6.5-8.0)
[2023-07-02 14:51] LABS: Free T4 (Free Thyroxine) 1.87 ng/dL (0.71-1.85); Thyroid Stimulating Hormone 0.07 uIU/mL (0.32-4.0)
[2023-07-03 07:43] LABS: Triiodothyronine T3 Free 3.5 pg/mL (2.3-4.2)
== END 2023-07-02 12:26 | disposition home or self-care (01) ==
LOC: HO.LAB 12:25
PROVIDERS: PCP Internal Medicine; Visit Provider Internal Medicine Endocrinology, Diabetes & Metabolism
DX: E05.90 Thyrotoxicosis, unspecified without thyrotoxic crisis or storm (principal)
CPT/HCPCS: 36415; 80076; 84439; 84443; 84481; 85025

== ENCOUNTER 2023-08-20 12:24 | Outpatient (AMB) | payer OTHER, SELFPAY ==
[2023-08-20 12:41] VITALS: BP 130/80; BMI 22.1
--- NOTE | 2023-08-20 12:41 | A.OFFVIS_ITS ---
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 Doing well with no concerns. She tries to eat healthy and stays active with exercise-walking. Regular monthly menses. Currently is never sexually active. She denies vaginal itching and irritation. Denies family history of breast, ovarian or colon cancer. Lives at home with her family. Admits to having a boyfriend there is no physical contact beyond kissing she has not currently interested in intimacy. [facility] Medical History Hypothyroidism, postop Iron deficiency anemia Intrinsic eczema Surgical History Hx of thyroidectomy No pertinent past surgical history Family History Mother Chronic mental illness Hyperthyroidism Maternal Grandfather Cancer Maternal Grandmother Hypertension Diabetes Hypercholesteremia Father No problems noted. Social History Household Members: Family Housing: House Alcohol intake: never Patient Tobacco Use Status: Never used Tobacco e-Cigarette/Vaping Use: Never Used Second Hand Smoke Exposure: No service: No 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al status: unemployed Cognitive needs: No Hearing needs: No Vision needs: Yes Female Reproductive History Menstrual Age of Menarche: 12 Duration of menses: 6-7 days Date of last menstrual period: 08/09/23 control method: none Total pregnancies: 0 Review of Systems Const All systems reviewed & are unremarkable except as noted in HPI and below Reports as per HPI Eyes Reports no additional complaints ENT Reports no additional complaints Card Reports no additional complaints Resp Reports no additional complaints GI Reports as per HPI and Reports no additional complaints Reports as per HPI Musc Reports no additional complaints Skin/Breast Reports as per HPI Neuro Reports no additional complaints Psych Reports no additional complaints Endo Reports no additional complaints Rojas/Lymph Reports no additional complaints Aller/Immun Reports no additional complaints Physical Exam Vital Signs: Last Vital Signs BP 130/80 08/20/23 12:41 BMI result Body Mass Index 22.1 Const General: cooperative, healthy appearing, no acute distress, well developed and alert Orientation/consciousness: patient oriented x3 HEENT Head: Yes normal to inspection Eyes General: appearance normal, both eyes and all related structures Neck Neck: Yes normal visual inspection (Scar) Thyroid: other (Scar removal site) Chest Chest palpation & inspection: normal inspection of the chest and other (no puckering, dimpling, peau de orange, retraction, discharge, masses) Breast/axilla inspection: normal inspection of the breasts Breast/axilla palpation: normal palpation of the breasts Resp Effort & Inspection: normal respiratory effort GI Inspection: Yes normal to inspection Palpation (GI): Soft to palpation Rectal Exam - Female: deferred Other: Unable to perform a bimanual or speculum exam due to the patient's tension and small introitus. External Female Exam: normal external appearance and normal appearance of the urethra Skin General skin exam: no rashes or lesions noted Rashes: no rashes Neuro General: patient oriented x3 Cognition (Neuro): normal cognition Extrem General: Yes normal to inspection Psych Attitude: cooperative Thought process: Normal thought process present Assessment & Plan Assessment & Plan (1) Encounter for well woman exam with routine gynecological exam: Code(s): Z01.419 - Encounter for gynecological examination (general) (routine) without abnormal findings Category: Medical Plan: Discussed: Current recommendations for pap smears per ASCCP guidelines. Plan attempt at speculum exam next year. Breast awareness and periodic breast exams. Maintain a healthy lifestyle including a well balanced diet and routine exercise. Use condoms for STI and prevention. Return to the office if becoming interested in sexual activity to prepare for control in advance. Patient verbalizes understanding and agrees to the plan of care. She was given opportunity to ask questions and all questions were answered to the best of my ability. RTO in one year for annual manager gallery examination. This note is constructed using voice recognition software. While every effort has been made to ensure accuracy, speedometer mechanic errors may have been included. Coding Level of Care Code Est Pt Prev Care 18-39y(29300) Diagnoses Encounter for well woman exam with routine gynecological exam Z01.419
== END 2023-08-20 13:23 | disposition home or self-care (01) ==
PROVIDERS: PCP Internal Medicine; Visit Provider Advanced Practice Midwife
DX: Z01.419 Encounter for gynecological examination (general) (routine) without abnormal findings (principal)
CPT/HCPCS: 99395

== ENCOUNTER → 2023-08-20 12:24 | Outpatient (BNVA) | payer OTHER, SELFPAY | PROVIDERS: PCP Internal Medicine; Visit Provider Advanced Practice Midwife | DX: Z01.419 Encounter for gynecological examination (general) (routine) without abnormal findings (principal) | CPT/HCPCS: 99395 ==

== ENCOUNTER 2023-09-21 11:48 | Outpatient (AMB) | payer OTHER, SELFPAY ==
[2023-09-21 11:49] VITALS: BP 112/76; PULSE 77; BMI 22.1
--- NOTE | 2023-09-21 11:49 | MHC.OFFVIS ---
Vital Signs 09/21/23 11:49 Height 5 ft 4 in Weight 128 lb 8.472 oz BMI 22.1 BP 112/76 Blood Pressure Location Lt brachial Position Sitting Pulse 77 Pulse Source Pulse Oximeter Intake Visit Reasons: f/u post-surgical hypothyroidism-lvm Intake Note: Patient presents today for Post-Surgical Hypothyroidism follow up. Singing Telegram Performer Required: No Accompanied by: Mother Allergies hazelnut Allergy (Mild, Verified 09/21/23 11:55) WATERY EYES mcconnell [CHERRIES] Allergy (Unknown, Verified 09/21/23 11:55) THROAT SWELLING GUINNEA PIG Allergy (Mild, Uncoded 09/21/23 11:55) WATERY, ITCHY EYES Tree Nuts Allergy (Unknown, Uncoded 09/21/23 11:55) rash Medication List - Last Reconciled 09/21/23 by Gee Adams MD cephalexin 500 mg PO Q8H 7 days cetirizine 10 mg PO DAILY PRN 90 days clotrimazole 1% 1 appl topical BID 4 weeks cromolyn 4% 1 drp ophthalmic (eye) QID epinephrine 0.3 mL IM DIRECTED PRN 30 days ferrous sulfate 325 mg PO BID 90 days fluticasone propionate 50 mcg/actuation 1 spray intranasal DAILY levothyroxine 112 mcg PO DAILY [id number] acid 18-400 mg-mcg (Spectravite Women) 1 tab PO BEDTIME penicillin V potassium 500 mg PO BID 10 days triamcinolone acetonide 0.025% 1 appl topical DAILY HPI Comments Details: 23 YO F with no significant PMHx who is seen in F/U for Grave's Disease. She states she feels well and has no specific complaints today. She did notice a swelling in her neck and presented to her PCP. She was found to have a diffuse, symmetric goiter. TFTs revealed hyperthyroidism. Labs revealed positive TSI, TRAB, TG and TPO antibodies. She was diagnosed with Grave's disease. She was started on Methimazole 10 mg PO BID, and uptitrated to 10 mg PO TID. I had also prescribed propranolol 10 mg PO TID but she did not start this. She was compliant with this, but subsequently developed profound hypothyroidism with TSH >80. Methimazole was stopped and labs repeated 2 weeks later. Repeat labs did reveal that her hyperthyroidism had returned with elevated TT3. Methimazole was resumed and dose titrated to her current dose of methimazole 5 mg PO daily. She is due for repeat labs now. She is currently denying any symptoms of hyperthyroidism. Mother also with a history of Grave's disease. Of note, she did have COVID in November 2021. Thyroid US: 02/18/2022 Right Thyroid Lobe: 4.3 x 2.4 x 2.4 cm, volume 12.9 mL. Parenchyma: The gland echotexture is heterogeneous. Thyroid vascularity is hypervascular. Left Thyroid Lobe: 4.8 x 2 0.5-2.0 cm, volume 12.4 mL. Parenchyma: The gland echotexture is heterogeneous. Thyroid vascularity is hypervascular. Isthmus: 0.7 cm in maximum AP dimension. Estimated total number of nodules greater than or equal to 1 cm: 0. There are no nodules visualized in either gland. NODES: No lymphadenopathy is seen in the tissue surrounding the thyroid gland. Labs: Laboratory Tests 09/10/22 09/10/22 12:11 12:11 TSH 19.87 H Free T4 0.60 L Total T3 105 S/P thyroidectomy on 03/04/2023 with benign pathology . Currently on 112 mcg levothyroxine [facility] Medical History Hypothyroidism, postop Iron deficiency anemia Intrinsic eczema Surgical History Hx of thyroidectomy No pertinent past surgical history Family History Mother Chronic mental illness Hyperthyroidism Maternal Grandfather Cancer Maternal Grandmother Hypertension Diabetes Hypercholesteremia Father No problems noted. Social History Household Members: Family Housing: House Alcohol intake: never Patient Tobacco Use Status: Never used Tobacco e-Cigarette/Vaping Use: Never Used Second Hand Smoke Exposure: No service: No 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al status: unemployed Cognitive needs: No Hearing needs: No Vision needs: Yes Female Reproductive History Menstrual Age of Menarche: 12 Physical Exam Vital Signs: Last Vital Signs Pulse 77 09/21/23 11:49 BP 112/76 09/21/23 11:49 BMI result Body Mass Index 22.1 Const Other: Healing scar status post thyroidectomy Assessment & Plan Assessment & Plan (1) Hypothyroidism, postop: Code(s): E89.0 - Postprocedural hypothyroidism Category: Medical Plan: This is a 23-year-old female with a history of post-surgical hypothyroidism currently replaced on 112 mcg levothyroxine. She appears to be clinically euthyroid Plan is to recheck TSH and free T4 and adjust levothyroxine. If levels are still fluctuating, we talked about the idea of using branded Synthroid I gave her information about the Synthroid delivers program. Coding Level of Care Code Est Pt Level 3 (17159) Diagnoses Hypothyroidism, postop E89.0
== END 2023-09-21 12:10 | disposition home or self-care (01) ==
PROVIDERS: PCP Internal Medicine; Visit Provider Internal Medicine Endocrinology, Diabetes & Metabolism
DX: E89.0 Postprocedural hypothyroidism (principal)
CPT/HCPCS: 99213

== ENCOUNTER → 2023-09-21 11:48 | Outpatient (BNVA) | payer OTHER, SELFPAY | PROVIDERS: PCP Internal Medicine; Visit Provider Internal Medicine Endocrinology, Diabetes & Metabolism | DX: E89.0 Postprocedural hypothyroidism (principal) | CPT/HCPCS: 99212 ==

== ENCOUNTER 2023-09-21 12:12 | Outpatient (REF) | payer OTHER, SELFPAY ==
[2023-09-21 14:17] LABS: Free T4 (Free Thyroxine) 1.29 ng/dL (0.71-1.85); Thyroid Stimulating Hormone 0.15 uIU/mL (0.32-4.0)
== END 2023-09-21 12:13 | disposition home or self-care (01) ==
LOC: HO.10HDL 12:12
PROVIDERS: Visit Provider Internal Medicine Endocrinology, Diabetes & Metabolism
DX: E89.0 Postprocedural hypothyroidism (principal)
CPT/HCPCS: 36415; 84439; 84443

== ENCOUNTER 2023-11-12 14:01 | Outpatient (REF) | payer OTHER, SELFPAY ==
[2023-11-12 15:44] LABS: Free T4 (Free Thyroxine) 1.39 ng/dL (0.71-1.85); Thyroid Stimulating Hormone 0.25 uIU/mL (0.32-4.0)
== END 2023-11-12 14:02 | disposition home or self-care (01) ==
LOC: HO.LAB 14:01
PROVIDERS: PCP Internal Medicine; Visit Provider Internal Medicine Endocrinology, Diabetes & Metabolism
DX: E03.9 Hypothyroidism, unspecified (principal)
CPT/HCPCS: 36415; 84439; 84443

== ENCOUNTER 2023-12-04 12:53 | Outpatient (AMB) | payer OTHER, SELFPAY ==
--- NOTE | 2023-12-04 12:57 | AM.OFFWIN_ITS ---
Intake Vital Signs 12/04/23 12:58 Height 5 ft 4 in Weight 128 lb BMI 22.0 BP 110/60 Blood Pressure Location Rt brachial Position Sitting Pulse 74 Pulse Source Pulse Oximeter Pulse Oximetry (%) 99 Oxygen Delivery Method Room Air Intake Visit Reasons: EP- LT eye swollen Intake Note: Patient here for left eye swelling, pt states it is not bothersome but did wake up w/crust which has been going on for about 3 days. Patient Tobacco Use Status: Never used Tobacco Allergies hazelnut Allergy (Mild, Verified 12/04/23 12:59) WATERY EYES mcconnell [CHERRIES] Allergy (Unknown, Verified 12/04/23 12:59) THROAT SWELLING GUINNEA PIG Allergy (Mild, Uncoded 12/04/23 12:59) WATERY, ITCHY EYES Tree Nuts Allergy (Unknown, Uncoded 12/04/23 12:59) rash Do you need a note to return to daycare/school/sports/work: No HPI HPI Comments History of Present Illness Details 23 y/o female patient who presents to [facility] with c/o left eye redness. She noticed yellow dry crusting drainage over left eye 2 days ago. Denies severe pain, but reports feeling like sand inside eye. Denies vision changes. Denies URI symptoms. [facility] Medical History (Updated 09/21/23 @ 15:45 by Gee Adams MD) Hypothyroid Hypothyroidism, postop Iron deficiency anemia Intrinsic eczema Surgical History Hx of thyroidectomy No pertinent past surgical history Family History Mother Chronic mental illness Hyperthyroidism Maternal Grandfather Cancer Maternal Grandmother Hypertension Diabetes Hypercholesteremia Father No problems noted. Social History Household Members: Family Housing: House Alcohol intake: never Patient Tobacco Use Status: Never used Tobacco e-Cigarette/Vaping Use: Never Used Second Hand Smoke Exposure: No service: No 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al status: unemployed Cognitive needs: No Hearing needs: No Vision needs: Yes Female Reproductive History Menstrual Age of Menarche: 12 Review of Systems Const All systems reviewed & are unremarkable except as noted in HPI and below Physical Exam Vital Signs: Last Vital Signs Pulse 74 12/04/23 12:58 BP 110/60 12/04/23 12:58 Pulse Ox 99 12/04/23 12:58 Oxygen Delivery Method Room Air 12/04/23 12:58 BMI result Body Mass Index 22.0 Const Orientation/consciousness: patient oriented x3 HEENT Head: Yes normocephalic Ears: external ears normal and TM abnormal bulging and with fluid behind the TM; not erythematous General nose exam: Normal external nose present Face and sinus: Yes sinuses nontender Mouth: moist mucous membranes Eyes Periorbital: periorbital findings normal Eyelids: Yes eyelid abnormality (mild swelling left upperlid) Conjunctivae: conjunctival abnormal left conjunctival injection and discharge Pupils: Equal, round and reactive pupils present EOM: EOMs intact bilaterally Direct Ophthalmoscopy: normal light reflex Neuro General: patient oriented x3, gait normal and moves all extremities Cranial nerves: Yes Equal, round and reactive pupils present Psych Speech and movement: Normal speech and movement present Assessment & Plan Assessment & Plan (1) Allergic conjunctivitis: Code(s): H10.10 - Acute atopic conjunctivitis, unspecified eye Qualifiers: Laterality: left Qualified Code(s): H10.12 - Acute atopic conjunctivitis, left eye Plan: Cipro eye drops Keep eyes clean and dry. Wash hands frequently. Medications: New ciprofloxacin HCl 0.3% put 1-2 drps in affected eye(s) every 2hr up to 8 times/day x2days; then 4 times/day x5days ophthalmic (eye) 5 mL 0RF H10.12 - Ac [place] atopic conjunctivitis, left eye Coding Level of Care Code Est Pt Level 3 (29707) Diagnoses Allergic conjunctivitis of left eye H10.12 Laterality: left Time Spent (min) 15
[2023-12-04 12:58] VITALS: BP 110/60; PULSE 74; O2SAT 99; BMI 22.0
== END 2023-12-04 13:21 | disposition home or self-care (01) ==
PROVIDERS: PCP Internal Medicine; Visit Provider Nurse Practitioner Family
DX: H10.12 Acute atopic conjunctivitis, left eye (principal)
CPT/HCPCS: 99213

== ENCOUNTER 2023-12-09 11:33 | Outpatient (AMB) | payer OTHER, SELFPAY ==
--- NOTE | 2023-12-09 11:35 | A.OFFVIS_ITS ---
Vital Signs 12/09/23 11:37 Height 5 ft 4 in Weight 129 lb 6.581 oz BMI 22.2 BP 104/70 Blood Pressure Location Rt brachial Position Sitting Pulse 91 Pulse Source Pulse Oximeter Intake Visit Reasons: f/u post-operative hypothyroidism-confirmed Intake Note: Patient present for post-operative Hypothyroidism follow up. 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 Accompanied by: Mother Allergies hazelnut Allergy (Mild, Verified 12/09/23 11:37) WATERY EYES mcconnell [CHERRIES] Allergy (Unknown, Verified 12/09/23 11:37) THROAT SWELLING GUINNEA PIG Allergy (Mild, Uncoded 12/09/23 11:37) WATERY, ITCHY EYES Tree Nuts Allergy (Unknown, Uncoded 12/09/23 11:37) rash Medication List - Last Reconciled 12/09/23 by Gee Adams MD cetirizine 10 mg PO DAILY PRN 90 days ciprofloxacin HCl 0.3% put 1-2 drps in affected eye(s) every 2hr up to 8 times/day x2days; then 4 times/day x5days ophthalmic (eye) epinephrine 0.3 mL IM DIRECTED PRN 30 days ferrous sulfate 325 mg PO BID 90 days Synthroid (levothyroxine) 88 mcg PO DAILY NS HPI Comments Details: 23 YO F with no significant PMHx who is seen in F/U for Grave's Disease. She states she feels well and has no specific complaints today. She did notice a swelling in her neck and presented to her PCP. She was found to have a diffuse, symmetric goiter. TFTs revealed hyperthyroidism. Labs revealed positive TSI, TRAB, TG and TPO antibodies. She was diagnosed with Grave's disease. She was started on Methimazole 10 mg PO BID, and uptitrated to 10 mg PO TID. I had also prescribed propranolol 10 mg PO TID but she did not start this. She was compliant with this, but subsequently developed profound hypothyroidism with TSH >80. Methimazole was stopped and labs repeated 2 weeks later. Repeat labs did reveal that her hyperthyroidism had returned with elevated TT3. Methimazole was resumed and dose titrated to her current dose of methimazole 5 mg PO daily. She is due for repeat labs now. She is currently denying any symptoms of hyperthyroidism. Mother also with a history of Grave's disease. Thyroid US: 02/18/2022 Right Thyroid Lobe: 4.3 x 2.4 x 2.4 cm, volume 12.9 mL. Parenchyma: The gland echotexture is heterogeneous. Thyroid vascularity is hypervascular. Left Thyroid Lobe: 4.8 x 2 0.5-2.0 cm, volume 12.4 mL. Parenchyma: The gland echotexture is heterogeneous. Thyroid vascularity is hypervascular. Isthmus: 0.7 cm in maximum AP dimension. Estimated total number of nodules greater than or equal to 1 cm: 0. There are no nodules visualized in either gland. NODES: No lymphadenopathy is seen in the tissue surrounding the thyroid gland. Labs: Laboratory Tests 09/10/22 09/10/22 12:11 12:11 TSH 19.87 H Free T4 0.60 L Total T3 105 S/P thyroidectomy on 03/04/2023 with benign pathology . Currently on 88 mcg Synthroid . No symptoms of hypothyroidism or hyperthyroidism. No plans for PFSH Medical History (Updated 09/21/23 @ 15:45 by Gee Adams MD) Hypothyroid Hypothyroidism, postop Iron deficiency anemia Intrinsic eczema Surgical History (Updated 12/09/23 @ 11:38 by MOUNA Kowalski) Hx of thyroidectomy Family History Mother Chronic mental illness Hyperthyroidism Maternal Grandfather Cancer Maternal Grandmother Hypertension Diabetes Hypercholesteremia Father No problems noted. Social History Household Members: Family Housing: House Alcohol intake: never Patient Tobacco Use Status: Never used Tobacco e-Cigarette/Vaping Use: Never Used Second Hand Smoke Exposure: No service: No 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al status: unemployed Cognitive needs: No Hearing needs: No Vision needs: Yes Female Reproductive History Menstrual Age of Menarche: 12 Physical Exam Const Other: Healing scar status post thyroidectomy Assessment & Plan Assessment & Plan (1) Hypothyroidism, postop: Code(s): E89.0 - Postprocedural hypothyroidism Category: Medical Plan: This is a 23-year-old female with a history of post-surgical hypothyroidism currently replaced on 88 mcg Synthroid . She appears to be clinically euthyroid. Synthroid dose was decreased 2 weeks ago Plan is to recheck TSH and free T4 in 4 weeks and adjust levothyroxine. Coding Level of Care Code Est Pt Level 3 (25535) Diagnoses Hypothyroidism, postop E89.0
[2023-12-09 11:37] VITALS: BP 104/70; PULSE 91; BMI 22.2
== END 2023-12-09 11:49 | disposition home or self-care (01) ==
PROVIDERS: PCP Internal Medicine; Visit Provider Internal Medicine Endocrinology, Diabetes & Metabolism
DX: E89.0 Postprocedural hypothyroidism (principal)
CPT/HCPCS: 99213

== ENCOUNTER → 2023-12-09 11:33 | Outpatient (BNVA) | payer OTHER, SELFPAY | PROVIDERS: PCP Internal Medicine; Visit Provider Internal Medicine Endocrinology, Diabetes & Metabolism | DX: E89.0 Postprocedural hypothyroidism (principal) | CPT/HCPCS: 99212 ==

== ENCOUNTER 2023-12-10 09:12 | Outpatient (AMB) | payer OTHER, SELFPAY ==
--- NOTE | 2023-12-10 09:18 | A.OFFPC_ITS ---
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 Accompanied by: Mother Allergies hazelnut Allergy (Mild, Verified 12/10/23 09:29) WATERY EYES mcconnell [CHERRIES] Allergy (Unknown, Verified 12/10/23 09:29) THROAT SWELLING GUINNEA PIG Allergy (Mild, Uncoded 12/10/23 09:29) WATERY, ITCHY EYES Tree Nuts Allergy (Unknown, Uncoded 12/10/23 09:29) rash Medication List - Last Reconciled 12/10/23 by Nancy Newsome MD cetirizine 10 mg PO DAILY PRN 90 days ciprofloxacin HCl 0.3% put 1-2 drps in affected eye(s) every 2hr up to 8 times/day x2days; then 4 times/day x5days ophthalmic (eye) epinephrine 0.3 mL IM DIRECTED PRN 30 days ferrous sulfate 325 mg PO BID 90 days Synthroid (levothyroxine) 88 mcg PO DAILY NS Tobacco use date assessed: 05/15/23 Dental Screening Dental Screen Date: 05/15/23 HPI HPI Comments History of Present Illness Details This is a 23-year-old female that comes for her physical exam accompanied by mother. She follows with OBGYN. Has intrinsic eczema and would like to see Dermatology. Has foot callus that hurts bilateral and would like to see Podiatry for that matter. No acute complaints. [facility] Medical History (Updated 12/10/23 @ 09:45 by Nancy Newsome MD) Hypothyroid Hypothyroidism, postop Iron deficiency anemia Intrinsic eczema Surgical History Hx of thyroidectomy Family History Mother Chronic mental illness Hypertension Asthma Hypothyroidism Depression Maternal Grandfather Cancer Maternal Grandmother Hypertension Diabetes Hypercholesteremia Father Anemia Social History Household Members: Family Housing: House Alcohol intake: never Patient Tobacco Use Status: Never used Tobacco e-Cigarette/Vaping Use: Never Used Second Hand Smoke Exposure: No service: No 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al status: unemployed Cognitive needs: No Hearing needs: No Vision needs: Yes Female Reproductive History Menstrual Age of Menarche: 12 Questionnaire PHQ-9 Over the last 2 weeks, how often have you been bothered by any of the following problems? 1. Little interest or pleasure in doing things: not at all 2. Feeling down, depressed, or hopeless: not at all 3. Trouble falling or staying asleep, or sleeping too much: not at all 4. Feeling tired or having little energy: not at all 5. Poor appetite or overeating: not at all 6. Feeling bad about yourself - or that you are a failure or have let yourself or your family down: not at all 7. Trouble concentrating on things, such as reading the newspaper or watching television: not at all 8. Moving or speaking so slowly that other people could have noticed. Or the opposite - being so fidgety or restless that you have been moving around a lot more than usual: not at all 9. Thoughts that you would be better off or of hurting yourself in some way: not at all Total score: 0 Depression Screening Interpretation: Negative Depression Screening Done: Yes 46421 - PHQ-9 Billing: Yes Source: Developed by Drs. Gee Garcia, Carol Sanchez, Erasto Lord and colleagues, with an educational vanda from [employer]. Thrive Questionnaire Date Thrive assessed: 05/15/23 I am a: Patient What is your living situation today?: I have a steady place to live Within the past 12 months, did the food you bought not last and you didn't have the money to get more?: I choose not to answer this question Within the past 12 months, did you worry whether your food would run out before you got money to buy more?: I choose not to answer this question Do you have trouble paying for medicines?: No Do you have trouble getting transportation to medical appointments?: No Do you have trouble paying your heating and electricity bill?: No Do you have trouble taking care of your child, family member or friend?: No Do you have trouble with day-to-day activities such as bathing, preparing meals, shopping, managing finances, etc.?: No Are you currently unemployed and looking for a job?: No Are you interested in more education?: No Please select the resources that you would like help with: None Currently or been in a relationship where the following occur: I choose not to answer THRIVE Score: 0 AUDIT C Alcohol Use Questionnaire (AUDIT-C) 1. How often do you have a drink containing alcohol?: Never Total Score: 0 Score Reviewed/Action Taken: No JUSTIN-7 AMB Questionnaire JUSTIN-7 Date JUSTIN - 7 assessed: 05/15/23 Feeling nervous, anxious, or on edge: 0 = Not at all Not being able to stop or control worryin = Not at all Worrying too much about different things: 0 = Not at all Trouble relaxin = Not at all Being so restless that it is hard to sit still: 0 = Not at all Becoming easily annoyed or irritable: 1 = Several days Feeling afraid as if something awful might happen: 0 = Not at all Total JUSTIN-7 score (0-4 normal; 5-9 mild; 10-14 moderate; 15-21 severe): 1 Source: Developed by Drs. Gee Garcia, Carol Sanchez, Erasto Lord and colleagues, with an educational vanda from [employer]. JUSTIN-7 Assessment Billing JUSTIN-7 Assessment Tool: JUSTIN-7 Assessment 61162 Review of Systems Const All systems reviewed & are unremarkable except as noted in HPI and below Card Denies chest pain at rest, Denies chest pain with activity, Denies edema, Denies irregular heart rhythm, Denies claudication, Denies dyspnea, Denies dyspnea on exertion, Denies orthopnea, Denies paroxysmal nocturnal dyspnea and Denies slow heart rate Resp Denies cough, Denies dyspnea and Denies dyspnea on exertion GI Denies abdominal pain, Denies change in bowel habits, Denies excessive flatus, Denies nausea and Denies vomiting Denies urinary incontinence, Denies urinary hesitancy and Denies urinary urgency Musc Denies atrophy, Denies deformity and Denies limited range of motion Skin/Breast Denies bleeding lesions, Denies changing lesions and Denies rash Physical exam (Primary Care) Vital Signs: Last Vital Signs BP 110/82 12/10/23 09:19 BMI result Body Mass Index 22.1 Tobacco/Smoking Status: Tobacco use Status Tobacco use date assessed 05/15/23 12/10/23 09:22 Patient Tobacco Use Status Never used Tobacco 12/10/23 09:22 e-Cigarette/Vaping Use Never Used 12/10/23 09:22 PHQ-9: PHQ-9 Score PHQ-9: Total score 0 12/10/23 09:34 Depression Screening Interpretation: Negative Thrive Assessment: Date of Thrive Assessment Date Thrive assessed 05/15/23 12/10/23 09:22 Currently or been in a relationship where the following occur: I choose not to answer [facility] Head: Yes normal to inspection, Yes normocephalic and Yes atraumatic Ears: external ears normal Eyes General: appearance normal, both eyes and all related structures Eyelids: Yes eyelids normal Conjunctivae: conjunctivae normal Neck Neck: Yes normal visual inspection and Yes supple Resp Effort & Inspection: normal respiratory effort Auscultation: clear to auscultation bilaterally Cardio Jugular venous distension: no JVD Rate: regular rate Rhythm: regular rhythm Heart sounds: S1 normal heart sound present and S2 normal heart sound present GI Inspection: Yes normal to inspection Palpation (GI): Soft to palpation and nontender Auscultation: normal bowel sounds Skin General skin exam: no rashes or lesions noted Neuro General: no focal motor deficits Extrem General: Yes full ROM Right lower extremity: foot (callus) Left lower extremity: foot (callus) Psych Appearance: grossly normal Assessment and Plan Assessment & Plan (1) Physical exam: Code(s): Z00.00 - Encounter for general adult medical examination without abnormal findings Plan: Repeat in a year. (2) Foot callus: Code(s): L84 - Corns and callosities Plan: Referred to Podiatry. (3) Intrinsic eczema: Code(s): L20.84 - Intrinsic (allergic) eczema Plan: Referred to dermatology. Orders: Orders Complete Blood Count Auto Diff Today D64.9 - Anemia, unspecified IRON PROFILE Today D64.9 - Anemia, unspecified Comprehensive [facility]. Panel Fast Today Z00.00 - Encounter for general adult medical examination without abnormal findings Lipid Panel Today Z00.00 - Encounter for general adult medical examination without abnormal findings Referrals Dermatology Referral L20.84 - Intrinsic (allergic) eczema Podiatry Referral L84 - Corns and callosities Medications: New triamcinolone acetonide 0.5% 1 appl topical DAILY 15 grams 2RF 2 weeks L20.84 - Intrinsic (allergic) eczema Coding Level of Care Code Est Pt Level 3 (95353) Est Pt Prev Care 18-39y(52459) Diagnoses Physical exam Z00.00 Foot callus L84 Intrinsic eczema L20.84 Additional Codes JUSTIN-7 Assessment Billing - JUSTIN-7 Assessment Tool: JUSTIN-7 Assessment 54477 ([id number]) Time Spent (min) 32
[2023-12-10 09:19] VITALS: BP 110/82; BMI 22.1
== END 2023-12-10 09:43 | disposition home or self-care (01) ==
PROVIDERS: PCP Internal Medicine; Visit Provider Internal Medicine
DX: Z00.00 Encounter for general adult medical examination without abnormal findings (principal); L84 Corns and callosities; L20.84 Intrinsic (allergic) eczema
CPT/HCPCS: 99395

== ENCOUNTER 2024-01-28 11:03 | Outpatient (REF) | payer OTHER, SELFPAY ==
[2024-01-28 13:51] LABS: MANUAL DIFF FLAG NO
[2024-01-28 14:07] LABS: Basophils Percent Auto 0.2 % (0-2); Eosinophils Absolute Auto 0.1 X10*3/uL (0.0-0.4); Eosinophils Percent Auto 2.3 % (0-4); Hematocrit 34.7 % (37.0-47.0); Hemoglobin 11.6 g/dl (12.0-16.0); Imm Gran Abs Auto 0.01 X10*3/uL (0.00-0.03); Imm Gran Pct Auto 0.2 % (0.0-0.4); Lymphocytes Absolute Auto 1.4 X10*3/uL (1.2-4.9); Lymphocytes Percent Auto 30.3 % (20-40); Mean Corpuscular HGB Conc 33.4 g/dl (31.0-35.0); Mean Corpuscular Hemoglobin 27.3 pg (27.0-33.0); Mean Corpuscular Volume 81.6 fL (80.0-98.0); Mean Platelet Volume 12.6 fL (9.4-12.3); Monocytes Absolute Auto 0.4 X10*3/uL (0.1-1.2); Neutrophils Absolute Auto 2.8 x10*3/uL (2.0-8.3); Platelet Count 181 X10*3/uL (160-400); Red Blood Count 4.25 X10*6/uL (4.20-5.50); Red Cell Distribution Width 13.5 % (11.0-16.0); White Blood Count 4.8 X10*3/uL (4.8-10.8)
[2024-01-28 14:32] LABS: Free T4 (Free Thyroxine) 1.34 ng/dL (0.71-1.85)
[2024-01-28 14:42] LABS: Alanine Aminotransferase 13 U/L (0-31); Albumin Level 4.9 g/dL (3.5-5.0); Alkaline Phosphatase 54 U/L (39-117); Anion Gap 13 (12-20); Aspartate Amino Transferase 26 U/L (5-31); Blood Urea Nitrogen 22 mg/dL (9-16); Calcium 9.8 mg/dL (8.4-10.2); Carbon Dioxide 25 mmol/L (22-29); Chloride 107 mmol/L (96-108); Cholesterol 153 mg/dL (<200); Estimated Glomerular Filt Rate > 60; Glucose Fasting 97 mg/dL (60-99); HDL Cholesterol 52 mg/dL (>40); Iron 31 mcg/dL (30-160); LDL Cholesterol Calculated 91 mg/dL (<100); Percent Iron Saturation 10 % (15-50); Potassium 3.8 mmol/L (3.3-5.1); Sodium 141 mmol/L (135-145); Thyroid Stimulating Hormone 0.78 uIU/mL (0.32-4.0); Total Iron Binding Capacity 312 mcg/dL (228-428); Total Protein 8.1 g/dL (6.5-8.0); Triglycerides 52 mg/dL (<150); Unsaturated Iron Binding 281 ug/dL
[2024-01-28 15:29] LABS: Bilirubin Total 0.4 mg/dL (0.0-1.0)
== END 2024-01-28 11:04 | disposition home or self-care (01) ==
LOC: HO.10HDL 11:03
PROVIDERS: Internal Medicine Endocrinology, Diabetes & Metabolism; Visit Provider Internal Medicine
DX: Z00.00 Encounter for general adult medical examination without abnormal findings (principal); D64.9 Anemia, unspecified; E03.9 Hypothyroidism, unspecified
CPT/HCPCS: 36415; 80053; 80061; 83540; 84439; 84443; 85025

== ENCOUNTER 2024-04-11 12:42 | Outpatient (AMB) | payer OTHER, SELFPAY ==
--- NOTE | 2024-04-11 12:52 | MHC.OFFVIS ---
Vital Signs 04/11/24 12:55 Height 5 ft 4 in Weight 120 lb 13.013 oz BMI 20.7 BP 106/68 Blood Pressure Location Lt brachial Position Sitting Pulse 72 Pulse Source Pulse Oximeter Intake Visit Reasons: f/u post-operative hypothyroidism Intake Note: Patient present for post-operative Hypothyroidism follow up. 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 Accompanied by: Self / Same As Patient Allergies hazelnut Allergy (Mild, Verified 04/11/24 12:56) WATERY EYES mcconnell [CHERRIES] Allergy (Unknown, Verified 04/11/24 12:56) THROAT SWELLING GUINNEA PIG Allergy (Mild, Uncoded 04/11/24 12:56) WATERY, ITCHY EYES Tree Nuts Allergy (Unknown, Uncoded 04/11/24 12:56) rash Medication List - Last Reconciled 04/11/24 by Gee Adams MD cetirizine 10 mg PO DAILY PRN 90 days ciprofloxacin HCl 0.3% put 1-2 drps in affected eye(s) every 2hr up to 8 times/day x2days; then 4 times/day x5days ophthalmic (eye) epinephrine 0.3 mL IM DIRECTED PRN 30 days ferrous sulfate 325 mg PO BID 90 days Synthroid (levothyroxine) 88 mcg PO DAILY NS triamcinolone acetonide 0.5% 1 appl topical DAILY 2 weeks HPI Comments Details: 24 YO F with no significant PMHx who is seen in F/U for Grave's Disease. She states she feels well and has no specific complaints today. She did notice a swelling in her neck and presented to her PCP. She was found to have a diffuse, symmetric goiter. TFTs revealed hyperthyroidism. Labs revealed positive TSI, TRAB, TG and TPO antibodies. She was diagnosed with Grave's disease. She was started on Methimazole 10 mg PO BID, and uptitrated to 10 mg PO TID. I had also prescribed propranolol 10 mg PO TID but she did not start this. She was compliant with this, but subsequently developed profound hypothyroidism with TSH >80. Methimazole was stopped and labs repeated 2 weeks later. Repeat labs did reveal that her hyperthyroidism had returned with elevated TT3. Methimazole was resumed and dose titrated to her current dose of methimazole 5 mg PO daily. She is due for repeat labs now. She is currently denying any symptoms of hyperthyroidism. Mother also with a history of Grave's disease. Thyroid US: 02/18/2022 Right Thyroid Lobe: 4.3 x 2.4 x 2.4 cm, volume 12.9 mL. Parenchyma: The gland echotexture is heterogeneous. Thyroid vascularity is hypervascular. Left Thyroid Lobe: 4.8 x 2 0.5-2.0 cm, volume 12.4 mL. Parenchyma: The gland echotexture is heterogeneous. Thyroid vascularity is hypervascular. Isthmus: 0.7 cm in maximum AP dimension. Estimated total number of nodules greater than or equal to 1 cm: 0. There are no nodules visualized in either gland. NODES: No lymphadenopathy is seen in the tissue surrounding the thyroid gland. Labs: Laboratory Tests 09/10/22 09/10/22 12:11 12:11 TSH 19.87 H Free T4 0.60 L Total T3 105 S/P thyroidectomy on 03/04/2023 with benign pathology . Currently on 88 mcg Synthroid . No symptoms of hypothyroidism or hyperthyroidism. No plans for PFSH Medical History Hypothyroid Hypothyroidism, postop Iron deficiency anemia Intrinsic eczema Surgical History Hx of thyroidectomy Family History Mother Chronic mental illness Hypertension Asthma Hypothyroidism Depression Maternal Grandfather Cancer Maternal Grandmother Hypertension Diabetes Hypercholesteremia Father Anemia Social History Household Members: Family Housing: House Alcohol intake: never Patient Tobacco Use Status: Never used Tobacco e-Cigarette/Vaping Use: Never Used Second Hand Smoke Exposure: No service: No 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al status: unemployed Cognitive needs: No Hearing needs: No Vision needs: Yes Female Reproductive History Menstrual Age of Menarche: 12 Physical Exam Vital Signs: Last Vital Signs Pulse 72 04/11/24 12:55 BP 106/68 04/11/24 12:55 BMI result Body Mass Index 20.7 Const Other: Healing scar status post thyroidectomy Assessment & Plan Assessment & Plan (1) Hypothyroidism, postop: Code(s): E89.0 - Postprocedural hypothyroidism Category: Medical Plan: This is a 23-year-old female with a history of post-surgical hypothyroidism currently replaced on 88 mcg Synthroid . She appears to be clinically and biochemically euthyroid. Plan is to continue current therapy. At this point, patient returned to the care of her primary care provider and returned back to endocrinology as needed Medications: Refilled Synthroid (levothyroxine) 88 mcg PO DAILY 30 tabs 3RF NS Coding Level of Care Code Est Pt Level 3 (25209) Diagnoses Hypothyroidism, postop E89.0
[2024-04-11 12:55] VITALS: BP 106/68; PULSE 72; BMI 20.7
== END 2024-04-11 13:11 | disposition home or self-care (01) ==
PROVIDERS: PCP Internal Medicine; Visit Provider Internal Medicine Endocrinology, Diabetes & Metabolism
DX: E89.0 Postprocedural hypothyroidism (principal)
CPT/HCPCS: 99213

== ENCOUNTER 2024-04-18 11:01 | Outpatient (AMB) | payer OTHER, SELFPAY ==
[2024-04-18 12:11] VITALS: BP 118/80; PULSE 105; TEMP 36.7; O2SAT 96; BMI 21.8
--- NOTE | 2024-04-18 12:11 | MHC.OFFWIV ---
Intake Vital Signs 04/18/24 12:11 Height 5 ft 4 in Weight 127 lb BMI 21.8 BP 118/80 Blood Pressure Location Lt brachial Position Sitting Pulse 105 H Pulse Source Pulse Oximeter Temp 98.1 F Temp Source Oral Pulse Oximetry (%) 96 Oxygen Delivery Method Room Air Intake Visit Reasons: EP ? sinus infection, allergies, congested Intake Note: Diana is here today for a walk in visit. Pt c/o congestion, sinus pain and pressure chills and body aches for 3 days. Patient Tobacco Use Status: Never used Tobacco Allergies hazelnut Allergy (Mild, Verified 04/18/24 12:18) WATERY EYES mcconnell [CHERRIES] Allergy (Unknown, Verified 04/18/24 12:18) THROAT SWELLING GUINNEA PIG Allergy (Mild, Uncoded 04/18/24 12:18) WATERY, ITCHY EYES Tree Nuts Allergy (Unknown, Uncoded 04/18/24 12:18) rash HPI HPI Comments History of Present Illness Details She presents to office with mother 3 days of nasal congestion No fever or chills No sore throat or ear pain She denies cough Mother was sick before; a week ago Unable to give pain scale but said she has sinus pain all over her face Mother said she has been giving her allergy medicine without relief PFSH Medical History Hypothyroid Hypothyroidism, postop Iron deficiency anemia Intrinsic eczema Surgical History Hx of thyroidectomy Family History Mother Chronic mental illness Hypertension Asthma Hypothyroidism Depression Maternal Grandfather Cancer Maternal Grandmother Hypertension Diabetes Hypercholesteremia Father Anemia Social History Household Members: Family Housing: House Alcohol intake: never Patient Tobacco Use Status: Never used Tobacco e-Cigarette/Vaping Use: Never Used Second Hand Smoke Exposure: No service: No 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al status: unemployed Cognitive needs: No Hearing needs: No Vision needs: Yes Female Reproductive History Menstrual Age of Menarche: 12 Review of Systems Const Denies chills and Denies fever(s) ENT Denies otalgia, Reports nasal congestion, Reports nasal discharge, Reports sinus pain and Denies sore throat Card Denies chest pain, Denies syncope and Denies dyspnea Resp Denies cough and Denies dyspnea Neuro Denies syncope Physical Exam Vital Signs: Last Vital Signs Temp 98.1 F 04/18/24 12:11 Pulse 105 H 04/18/24 12:11 BP 118/80 04/18/24 12:11 Pulse Ox 96 04/18/24 12:11 Oxygen Delivery Method Room Air 04/18/24 12:11 BMI result Body Mass Index 21.8 General: Non-toxic, NAD. Speaking full sentences. Skin: Warm dry throughout. No facial edema or erythema noted Eye: EOMI HENT: Airway patent. Uvula midline. No pharyngeal erythema or edema. 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 Bilateral canals clear. TM non-erythematous, non-bulging. No TM perforation or hemotympanum noted. + rhinorrhea on exam with edematous nasal turbinants. No whincing with sinus palpation Respiratory: CTA bilaterally. No wheezes, rales or rhonchi Cardiac: RRR. No murmur MSK: Full ROM extremities. Neurology: Alert. No aphasia or facial droop. Gait without abnormality Psych: Good mood and affect Assessment & Plan Assessment & Plan (1) Viral infection: Code(s): B34.9 - Viral infection, unspecified Plan: Patient seen and evaluated. Symptoms x 3 days and there is no indication or concern for a bacterial infection Mother did not seem happy she is not getting an antibiotics Extensive education provided about difference between viral and bacterial infection and when antibiotics are indicated; usually 10-14 days Will trial flonase and mucinex OTC Eren call with concerns Patient and mother gave verbal understanding and had no additional questions or concerns at time of discharge All questions answered Medications: New ipratropium bromide administer into each nostril 2 sprays intranasal BID PRN 30 mL 0RF allergy symptoms Coding Level of Care Code Est Pt Level 3 (46885) Diagnoses Viral infection B34.9
== END 2024-04-18 13:28 | disposition home or self-care (01) ==
PROVIDERS: PCP Internal Medicine; Visit Provider Physician Assistant
DX: B34.9 Viral infection, unspecified (principal)

== ENCOUNTER → 2024-04-18 11:01 | Outpatient (BNVA) | payer OTHER, SELFPAY | PROVIDERS: PCP Internal Medicine; Visit Provider Physician Assistant | DX: B34.9 Viral infection, unspecified (principal) | CPT/HCPCS: 99212 ==

== ENCOUNTER 2024-07-04 14:03 | Outpatient (AMB) | payer OTHER, SELFPAY ==
--- NOTE | 2024-07-04 14:14 | A.OFFPC_ITS ---
Vital Signs 07/04/24 14:15 Height 5 ft 4 in Weight 128 lb BMI 22.0 BP 110/72 Blood Pressure Location Lt brachial Position Sitting Intake Visit Reasons: thyroid,anemia Intake Note: Patient here for a follow up Thyroid, Anemia Administration Professional Required: No Accompanied by: Self / Same As Patient Allergies hazelnut Allergy (Mild, Verified 07/04/24 14:31) WATERY EYES mcconnell [CHERRIES] Allergy (Unknown, Verified 07/04/24 14:31) THROAT SWELLING GUINNEA PIG Allergy (Mild, Uncoded 07/04/24 14:31) WATERY, ITCHY EYES Tree Nuts Allergy (Unknown, Uncoded 07/04/24 14:31) rash Medication List - Last Reconciled 07/04/24 by Nancy Newsome MD cetirizine 10 mg PO DAILY PRN 90 days epinephrine 0.3 mL IM DIRECTED PRN 30 days ferrous sulfate 325 mg PO BID 90 days ipratropium bromide 2 sprays intranasal BID PRN Synthroid (levothyroxine) 88 mcg PO DAILY NS triamcinolone acetonide 0.5% 1 appl topical DAILY 2 weeks Tobacco use date assessed: 07/04/24 Dental Screening Dental Screen Date: 07/04/24 Did you have a dental visit in the last 12 months?: No Did you have a dental problem in the last 6 months where you did not have access to dental care?: No Was dental information given to patient?: Patient has dentist HPI HPI Comments History of Present Illness Details The patient is a 24-year-old female presenting with a focus on [facility] of her chronic conditions and medication refills. She reports allergies to hazelnuts, cherries, guinea pigs, and tree nuts, and utilizes cetirizine and an Epipen as required. There are ongoing treatments for eczema involving triamcinolone cream, while primary hypothyroidism is controlled with Synthroid, last assessed in January. She is , and iron deficiency anemia is managed with prescribed ferrous sulfate. She has multiple allergies stable with antihistamines as needed. [facility] Medical History (Updated 07/04/24 @ 14:48 by Nancy Newsome MD) Hypothyroid Hypothyroidism, postop Iron deficiency anemia Intrinsic eczema Surgical History Hx of thyroidectomy Family History Mother Chronic mental illness Hypertension Asthma Hypothyroidism Depression Maternal Grandfather Cancer Maternal Grandmother Hypertension Diabetes Hypercholesteremia Father Anemia Social History Household Members: Family Housing: House Alcohol intake: never Patient Tobacco Use Status: Never used Tobacco e-Cigarette/Vaping Use: Never Used Second Hand Smoke Exposure: No service: No 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al status: unemployed Cognitive needs: No Hearing needs: No Vision needs: Yes Female Reproductive History Menstrual Age of Menarche: 12 Questionnaire PHQ-9 Over the last 2 weeks, how often have you been bothered by any of the following problems? 1. Little interest or pleasure in doing things: not at all 2. Feeling down, depressed, or hopeless: not at all 3. Trouble falling or staying asleep, or sleeping too much: not at all 4. Feeling tired or having little energy: not at all 5. Poor appetite or overeating: not at all 6. Feeling bad about yourself - or that you are a failure or have let yourself or your family down: not at all 7. Trouble concentrating on things, such as reading the newspaper or watching television: not at all 8. Moving or speaking so slowly that other people could have noticed. Or the opposite - being so fidgety or restless that you have been moving around a lot more than usual: not at all 9. Thoughts that you would be better off or of hurting yourself in some way: not at all Total score: 0 Depression Screening Interpretation: Negative Depression Screening Done: Yes 07421 - PHQ-9 Billing: Yes Source: Developed by Drs. Gee Garcia, Carol aSnchez, Erasto Lord and colleagues, with an educational vanda from [employer] Thrive Questionnaire Date Thrive assessed: 07/04/24 I am a: Patient What is your living situation today?: I have a steady place to live Within the past 12 months, did the food you bought not last and you didn't have the money to get more?: I choose not to answer this question Within the past 12 months, did you worry whether your food would run out before you got money to buy more?: I choose not to answer this question Do you have trouble paying for medicines?: No Do you have trouble getting transportation to medical appointments?: No Do you have trouble paying your heating and electricity bill?: No Do you have trouble taking care of your child, family member or friend?: No Do you have trouble with day-to-day activities such as bathing, preparing meals, shopping, managing finances, etc.?: No Are you currently unemployed and looking for a job?: No Are you interested in more education?: No Please select the resources that you would like help with: None Currently or been in a relationship where the following occur: I choose not to answer THRIVE Score: 0 AUDIT C Alcohol Use Questionnaire (AUDIT-C) 1. How often do you have a drink containing alcohol?: Never Total Score: 0 Score Reviewed/Action Taken: No JUSTIN-7 AMB Questionnaire JUSTIN-7 Date JUSTIN - 7 assessed: 07/04/24 Feeling nervous, anxious, or on edge: 0 = Not at all Not being able to stop or control worryin = Not at all Worrying too much about different things: 0 = Not at all Trouble relaxin = Not at all Being so restless that it is hard to sit still: 0 = Not at all Becoming easily annoyed or irritable: 0 = Not at all Feeling afraid as if something awful might happen: 0 = Not at all Total JUSTIN-7 score (0-4 normal; 5-9 mild; 10-14 moderate; 15-21 severe): 0 Source: Developed by Drs. Gee Garcia, Carol Sanchez, Erasto Lord and colleagues, with an educational vanda from [employer] JUSTIN-7 Assessment Billing JUSTIN-7 Assessment Tool: JUSTIN-7 Assessment 48874 Review of Systems Const All systems reviewed & are unremarkable except as noted in HPI and below Card Denies chest pain at rest, Denies chest pain with activity, Denies edema, Denies irregular heart rhythm, Denies claudication, Denies dyspnea, Denies dyspnea on exertion, Denies orthopnea, Denies paroxysmal nocturnal dyspnea and Denies slow heart rate Resp Denies cough, Denies dyspnea and Denies dyspnea on exertion GI Denies abdominal pain, Denies change in bowel habits, Denies excessive flatus, Denies nausea and Denies vomiting Physical exam (Primary Care) Vital Signs: Last Vital Signs BP 110/72 07/04/24 14:15 BMI result Body Mass Index 22.0 Tobacco/Smoking Status: Tobacco use Status Tobacco use date assessed 07/04/24 07/04/24 14:21 Patient Tobacco Use Status Never used Tobacco 07/04/24 14:21 e-Cigarette/Vaping Use Never Used 07/04/24 14:21 PHQ-9: PHQ-9 Score PHQ-9: Total score 0 07/04/24 14:21 Depression Screening Interpretation: Negative Thrive Assessment: Date of Thrive Assessment Date Thrive assessed 07/04/24 07/04/24 14:21 Currently or been in a relationship where the following occur: I choose not to answer Resp Effort & Inspection: normal respiratory effort Auscultation: clear to auscultation bilaterally Cardio Jugular venous distension: no JVD Rate: regular rate Rhythm: regular rhythm Heart sounds: S1 normal heart sound present and S2 normal heart sound present Extrem General: Yes full ROM Coding Level of Care Code Est Pt Level 4 (35680) Complex EM visit Add On G2211 Diagnoses Hypothyroidism, postop E89.0 Iron deficiency anemia D50.9 Intrinsic eczema L20.84 Multiple allergies Z88.9 Additional Codes PHQ-9 - 62180 - PHQ-9 Billing: Yes ([id number]) JUSTIN-7 Assessment Billing - JUSTIN-7 Assessment Tool: JUSTIN-7 Assessment 08884 ([id number]) Time Spent (min) 21 Assessment & Plan Assessment & Plan (1) Hypothyroidism, postop: Code(s): E89.0 - Postprocedural hypothyroidism Category: Medical (2) Iron deficiency anemia: Comment: Now on iron supplementation daily per hematology. Code(s): D50.9 - Iron deficiency anemia, unspecified Category: Medical (3) Intrinsic eczema: Code(s): L20.84 - Intrinsic (allergic) eczema Category: Medical (4) Multiple allergies: Code(s): Z88.9 - Allergy status to unspecified drugs, medicaments and biological substances Category: Medical Plan For hypothyroidism and anemia, the patient will continue care with hematology oncology for her anemia. Given her hemoglobin decline, regular re-evaluation and potential treatment adjustments will follow. Vitamin C has been added to her referral to assist with iron absorption. Her thyroid function remains stable, and lab assessments will be re-examined in four months. Patient was informed and verbally consented to the use of an ambient scribe for clinic note documentation during this visit. During our discussion, I confirmed the management approach for her hypothyroidism and anemia continued under hematology oncology's guidance. We reviewed the need for ongoing assessment of her hemoglobin levels, consulting hematology for any significant trends or treatment adaptations. Adding vitamin C to the referral aids anemia management. We did not find urgent symptoms like chest pain or shortness of breath, suggesting current stability. I advised following existing treatment regimens and participating in ongoing specialist evaluations to best support her health, and we discussed re-evaluating lab work in four months. Orders: Orders Thyroid Stimulating Hormone 4 Months E03.9 - Hypothyroidism, unspecified Comprehensive Met. Panel 4 Months Z00.00 - Encounter for general adult medical examination without abnormal findings Lipid Panel 4 Months Z00.00 - Encounter for general adult medical examination without abnormal findings Medications: New betamethasone dipropionate 0.05% 1 appl topical DAILY 2 weeks PRN 45 grams 2RF skin irritation ascorbate calcium (vitamin C) 500 mg PO DAILY 90 days 90 tabs 1RF Refilled triamcinolone acetonide 0.5% 1 appl topical DAILY 2 weeks 15 grams 2RF L20.84 - Intrinsic (allergic) eczema ferrous sulfate 325 mg PO BID 90 days 180 tabs 3RF Patient Instructions: - Continue taking cetirizine and carry the Epipen as prescribed for allergies. - Use triamcinolone cream for eczema management; ensure timely refill. - Maintain current Synthroid dosage for thyroid management. - Take ferrous sulfate an hour before meals or two hours after to improve absorption; consume with orange juice. - Monitor anemia closely, especially during . - Schedule a school-required physical examination, including programmed fasting blood work. - Follow an allergen avoidance strategy and remain vigilant with condition monitoring.
[2024-07-04 14:15] VITALS: BP 110/72; BMI 22.0
--- OUTSIDE RECORDS SUMMARY | 2024-07-04 15:55 | XMS_ITS | Continuity of Care Document ---
Author Organization [place] - [facility], Allergy Address [address] [place] [address] Care Team Providers Care Human Resources Hr Representative Name Role Phone HAILEY LUNDY Primary Care Provider Assessment Encounter Date Assessment Date Assessment LastModified by Organization Details LastModified Time 07/01/2024 07/01/2024 Visit With: Lulu Strong Use of Antihistamine s: No If yes: Vial Test Change in medications: No If yes ? ? ? Increase in asthma symptoms No Asthma Hx If yes, inhaler use: Reaction to last injections: No If yes: ? ? ? Allergy Symptoms: Other: ? ? ? Missed: Dose Aware of Vial Test Notes:? ? ? Not available 07/01/2024 14:52:43 Plan of Treatment Reminders Order Date Submit Date Provider Last Modified By Organization Details Last Modified Time Details Appointments [facility]- Allergy f-up 6mon 2024 03:00P M SIMON Wells MD Not available Not available Not available Lab None recorded . Referral None recorded . Procedures None recorded . Surgeries None recorded . Imaging None recorded . Medication Orders None recorded . Patient TargetsNo targets recorded. Patient InstructionsNo instructions recorded. Reason for Referral None Reported. Problems Name Problem SNOMED Code Status Onset Date Resolution Date Notes Provider Name and Address Organization Details Recorded Time Acute non-infec tive otitis externa 190245901 Active 2019 Unspecifie d acute noninfecti ve otitis externa, left ear; Note: Date Diagnosed: 04/08/2019 1:31 PM (H60.502) Not Available [facility] 02:39:44 Bleeding from nose 026340339 Active 2018 Epistaxis; Note: Date Diagnosed: 08/31/2018 12:02 PM (R04.0) Not Available [facility] 02:39:42 Allergic rhinitis 93133531 Active 2023 Allergic rhinitis: Due to other allergen; Note: Date Diagnosed: 04/20/2023 10:04 AM (477.8) Note: Date Diagnosed: 04/20/2023 10:04 AM (477.8) Allergic rhinitis: Due to other allergen; Note: Date Diagnosed: 04/10/2023 11:58 AM (477.8) Note: Date Diagnosed: 04/10/2023 11:58 AM (477.8) ; Start Date : 04/10/2023 Allergic rhinitis: Due to other allergen; Note: Date Diagnosed: 03/31/2023 9:32 AM (477.8) Note: Date Diagnosed: 03/31/2023 9:32 AM (477.8) ; Start Date : 03/31/2023 Allergic rhinitis: Due to other allergen; Note: Date Diagnosed: 03/20/2023 10:39 AM (477.8) Note: Date Diagnosed: 03/20/2023 10:39 AM (477.8) ; Start Date : 03/20/2023 Allergic rhinitis: Due to other allergen; Note: Date Diagnosed: 02/13/2023 11:43 AM (477.8) Note: Date Diagnosed: 02/13/2023 11:43 AM (477.8) ; Start Date : 02/13/2023 Allergic rhinitis: Due to other allergen; Note: Date Diagnosed: 01/30/2023 1:24 PM (477.8) Note: Date Diagnosed: 01/30/2023 1:24 PM (477.8) ; Start Date : 01/30/2023 Allergic rhinitis: Due to other allergen; Note: Date Diagnosed: 01/23/2023 2:05 PM (477.8) Note: Date Diagnosed: 01/23/2023 2:05 PM (477.8) ; Start Date : 01/23/2023 Allergic rhinitis: Due to other allergen; Note: Date Diagnosed: 01/16/2023 2:04 PM (477.8) Note: Date Diagnosed: 01/16/2023 2:04 PM (477.8) ; Start Date : 01/16/2023 Allergic rhinitis: Due to other allergen; Note: Date Diagnosed: 01/02/2023 11:36 AM (477.8) Note: Date Diagnosed: 01/02/2023 11:36 AM (477.8) ; Start Date : 01/02/2023 Allergic rhinitis: Due to other allergen; Note: Date Diagnosed: 12/26/2022 1:04 PM (477.8) Note: Date Diagnosed: 12/26/2022 1:04 PM (477.8) ; Start Date : 12/26/2022 Allergic rhinitis: Due to other allergen; Note: Date Diagnosed: 12/19/2022 11:49 AM (477.8) Note: Date Diagnosed: 12/19/2022 11:49 AM (477.8) ; Start Date : 12/19/2022 Allergic rhinitis: Due to other allergen; Note: Date Diagnosed: 12/01/2022 3:41 PM (477.8) Note: Date Diagnosed: 12/01/2022 3:41 PM (477.8) ; Start Date : 12/01/2022 Allergic rhinitis, unspecifie d; Note: Date Diagnosed: 05/05/2019 12:46 PM (J30.9) Note: Date Diagnosed: 05/05/2019 12:46 PM (J30.9) ; Start Date : 05/05/2019 Not Available [facility] 4 01:05:52 Nasal congestio n 75892922 Active 2022 Nasal congestion ; Note: Date Diagnosed: 08/11/2022 3:23 PM (R09.81) Not Available [facility] 4 02:39:51 Perennial allergic rhinitis 941132867 Active 2023 MOUNA WATKINS [address] [facility],[place] [address], [place], [address] , [place] - [facility] 4 15:15:03 Seasonal allergic rhinitis 801805291 Active 2023 SIMON HO MD [address] [facility],[place] [address], [place], [address] , [place] - [facility] 11:00:01 Problem Notes None recorded. Procedures Surgical History Date Name Laterality Status Provider Name and Address Organization Details Recorded Time 07/02/19 25 Allergy Immunotherapy Injections completed MOUNA JAY [address],[place], [place], [address], [place] [facility] 07/01/2024 14:52:40 06/24/19 25 Allergy Immunotherapy Injections completed SHAUN PAIGE, RMA [address],[place], [place], [address], [place] [facility] 06/23/2024 15:28:21 06/18/19 25 Allergy Immunotherapy Injections completed SHAUN PAIGE RMA [address],[place], [place], [address], [place] [facility] 06/17/2024 15:26:38 06/11/19 25 Allergy Immunotherapy Injections completed MOUNA JAY [address],[place], [place], [address], [place] [facility] 06/10/2024 12:14:00 06/03/19 25 Allergy Immunotherapy Injections completed CISCO JEFFERSON RN [facility] [place], [address], [place] [facility] 06/03/2024 15:02:55 05/27/19 25 Allergy Immunotherapy Injections completed CISCO JEFFERSON RN [address] [facility] [place] [address] [place] [address], [address], [place] [facility] 05/27/2024 13:18:22 05/19/19 25 Allergy Immunotherapy Injections completed SHAUN PAIGE, RMA [address],[place] [address] [place] [address], [address], [place] [facility] 05/19/2024 15:31:32 05/06/19 25 Allergy Immunotherapy Injections completed SHAUN SALCIDOC, RMA [address],[place], [place], [address], [place] [facility] 05/06/2024 12:10:48 04/28/19 25 Allergy Immunotherapy Injections completed SHAUN GRACIEZEC, RMA [address] [address], [place], [address], [place] [facility] 04/28/2024 11:59:53 04/21/19 25 Allergy Immunotherapy Injections completed SHAUN KORZEC, RMA [address] [address], [place], [address], [place] [facility] 04/21/2024 11:49:44 04/12/19 25 Allergy Immunotherapy Injections completed SHAUN KORZEC, RMA [address] [address], [place], [address], [place] [facility] 04/12/2024 11:31:04 04/07/19 25 Allergy Immunotherapy Injections completed LULU STRONG, RMA [address] [address], [place], [address], [place] [facility] 04/07/2024 14:28:20 03/24/20 24 Allergy Immunotherapy Injections completed CISCO JEFFERSON RN [address] [address], [place], [address], [place] [facility] 03/24/2024 09:06:48 03/17/20 24 Allergy Immunotherapy Injections completed MOUNA JAY [address], [place], [address], [place] [facility] 03/17/2024 13:34:10 03/10/20 24 Allergy Immunotherapy Injections completed SHAUN ROYAL, RMA [address],[place], [place], [address], [place] [facility] 03/10/2024 14:29:34 03/02/20 24 Allergy Immunotherapy Injections completed SHAUN PAIGE, RMA [address], [place], [address], [place] [facility] 03/02/2024 13:24:10 02/25/20 24 Allergy Immunotherapy Injections completed MOUNA JAY [address] [address], [place], [address], [place] [facility] 02/25/2024 12:05:26 02/18/20 24 Allergy Immunotherapy Injections completed SHAUN PAIGE, RMA [address], [place], [address], [place] [facility] 02/18/2024 11:40:09 02/11/20 24 Allergy Immunotherapy Injections completed DEVIN JAYA [address] [address], [place], [address], [place] [facility] 02/11/2024 11:17:12 02/04/20 24 Allergy Immunotherapy Injections completed CISCO JEFFERSON RN [address] [facility] [address], [place], [address], [place] [facility] 02/04/2024 11:26:13 01/26/20 24 Allergy Immunotherapy Injections completed CISCO JEFFERSON RN [address] [facility], [place], [address], [place] [facility] 01/26/2024 11:31:41 01/21/20 24 Allergy Immunotherapy Injections completed SHAUN PAIGE RMA [address] [address], [place], [address], [place] [facility] 01/21/2024 11:39:35 01/14/20 24 Allergy Immunotherapy Injections completed MOUNA JAY [address] [facility], [place], [address], [place] [facility] 01/14/2024 11:50:43 01/01/20 24 Allergy Immunotherapy Injections completed MOUNA JAY [address] [facility], [place], [address], [place] [facility] 01/01/2024 12:15:39 12/24/19 24 Allergy Immunotherapy Injections completed SHAUN PAIGE RMA [address],[place], [place], [address], [place] [facility] 12/24/2023 14:47:22 12/17/19 24 Allergy Immunotherapy Injections completed MOUNA JAY [address], [place], [address], [place] [facility] 12/17/2023 11:38:32 12/04/19 24 Allergy Immunotherapy Injections completed SHAUN PAIGE, RMA [address] [address], [place], [address], [place] [facility] 12/04/2023 11:19:28 11/27/19 24 Allergy Immunotherapy Injections completed CISCO JEFFERSON RN [address], [place], [address], [place] [facility] 11/27/2023 10:18:58 11/19/19 24 Allergy Immunotherapy Injections completed MOUNA JAY [address], [place], [address], [place] [facility] 11/19/2023 13:45:27 11/12/19 24 Allergy Immunotherapy Injections completed SHAUN PAIGE RMA [address], [place], [address], [place] [facility] 11/12/2023 14:10:31 11/05/19 24 Allergy Immunotherapy Injections completed CISCO JEFFERSON RN [address] [facility], [place], [address], [place] [facility] 11/05/2023 12:04:52 10/29/19 24 Allergy Immunotherapy Injections completed SHAUN PAIGE RMA [address], [place], [address], [place] [facility] 10/29/2023 11:45:35 10/22/19 24 Allergy Immunotherapy Injections completed SHAUN PAIGE RMA [address], [place], [address], [place] [facility] 10/22/2023 13:08:24 10/15/19 24 Allergy Immunotherapy Injections completed CISCO JEFFERSON RN [address] [facility], [place], [address], [place] [facility] 10/15/2023 13:59:34 10/06/19 24 Allergy Immunotherapy Injections completed SHAUN PAIGE RMA [address], [place], [address], [place] [facility] 10/06/2023 15:11:13 09/30/19 24 Allergy Immunotherapy Injections completed LULUArnav STRONG, [facility] [address] [facility] [place],[address], [place], [address], [facility] - [facility] 09/30/2023 12:16:28 09/15/19 24 Allergy Immunotherapy Injections completed SHAUN SALCIDO, RMA [address] [facility] [address],[place] [address] [place] [address], [address], [facility] - [facility] 09/15/2023 14:12:59 09/08/19 24 Allergy Immunotherapy Injections completed LULU STRONG, [facility] [address] [facility] [place],[address], [place], [address], [facility] - [facility] 09/08/2023 13:41:53 09/01/19 24 Allergy Immunotherapy Injections completed CISCO JEFFERSON RN [address] [facility],[address], [address], [facility] - [facility] 09/01/2023 12:11:41 08/21/19 24 Allergy Immunotherapy Injections completed SHAUN SALCIDO, [facility] [address] [facility] [place] [address], [place], [address], [facility] - [facility] 08/21/2023 15:15:30 Imaging Results None recorded. Procedure Notes None recorded. Medical Equipment None Reported. Medications Name Sig Start Date Stop Date Status Note LastModified by Organization Details LastModified Time acetamino phen 325 mg tablet TAKE 2 TABLETS BY MOUTH EVERY 4 HOURS FOR 10 DAYS NEEDED FOR PAIN active Not Available Not Available No t Available ammonium lactate 12 % lotion APPLY TOPICALL Y IF NEEDED FOR DRY SKIN. active Not Available Not Available No t Available triamcino lone acetonide 0.5 % topical cream APPLY TO AFFECTED AREA DAILY FOR 2 WEEKS active Not Available Not Available No t Available cetirizin e 10 mg tablet TAKE 1 TABLET BY MOUTH EVERY DAY NEEDED FOR ALLERGY SYMPTOMS FOR 90 DAYS active Not Available Not Available No t Available clotrimaz ole-betam ethasone 1 %-0.05 % lotion 08/11 completed Medicati on ID: [id number] rand Name: Wilner santos Send Method: E-Prescr ibed Sub s Allowed: subs OK Speci al Instruct ion: apply to external ear tid X 2 weeks Me dication GenericN jayne: Lotrison e Not Available Not Available Not Available Synthroid 100 mcg tablet TAKE 1 TABLET BY MOUTH EVERY DAY active Not Available Not Available No t Available penicilli n V potassium 500 mg tablet TAKE 1 TABLET BY MOUTH TWICE A DAY FOR 10 DAYS active Not Available Not Available No t Available ciproflox acin 0.3 % eye drops PUT 1-2 DROPS IN AFFECTED EYE(S) EVERY 2HRS UP TO 8 TIMES/DA Y X2DAYS THEN 4 TIMES/DA Y X5DAYS active Not Available Not Available No t Available cephalexi n 500 mg capsule TAKE 1 CAPSULE BY MOUTH TWICE A DAY active Not Available Not Available No t Available ferrous sulfate 325 mg (65 mg iron) tablet TAKE 1 TABLET BY MOUTH TWICE A DAY active Not Available Not Available No t Available levothyro xine 125 mcg tablet TAKE 1 TABLET BY MOUTH EVERY DAY active Not Available Not Available No t Available clotrimaz ole-betam ethasone 1 %-0.05 % topical cream APPLY A THIN COAT TO AFFECTED AREA TWICE DAILY FOR ITCHING FOR 7 DAYS active Not Available Not Available No t Available Synthroid 88 mcg tablet TAKE 1 TABLET BY MOUTH EVERY DAY active Not Available Not Available No t Available triamcino lone acetonide 0.025 % topical ointment APPLY TO AFFECTED AREA TOPICALL Y EVERY DAY active Not Available Not Available No t Available methimazo le 5 mg tablet TAKE 1/2 TABLET DAILY active Not Available Not Available No t Available azelastin e 137 mcg (0.1 %) nasal spray Inhale 2 spray once a day as directed 2022 active Medicati on ID: [id number] B rand Name: azelasti ne Send Method: E-Prescr ibed Sub s Allowed: subs OK Medic ationGen ericName : azelasti ne Not Available Not Available Not Available epinephri ne 0.3 mg/0.3 mL injection , auto-inje ctor INJECT 1 PEN INJECTOR INTRAMUS CULARLY SINGLE DOSE active Not Available Not Available No t Available ibuprofen 600 mg tablet TAKE 1 TABLET BY MOUTH EVERY 6 HOURS FOR 10 DAYS NEEDED FOR PAIN active Not Available Not Available No t Available methimazo le 10 mg tablet active Medicati on ID: [id number] B rand Name: methimaz ole Send Method: E-Prescr ibed Sub s Allowed: subs OK Medic ationGen ericName : methimaz ole Not Available Not Available Not Available fluticaso ne propionat e 50 mcg/actua tion nasal spray,anca pension SPRAY 1 SPRAY INTO EACH NOSTRIL DAILY active Not Available Not Available No t Available clotrimaz ole 1 % topical cream APPLY TO AFFECTED AREA TWICE A DAY FOR 4 WEEKS active Not Available Not Available No t Available ipratropi um bromide 21 mcg (0.03 %) nasal spray SPRAY 2 SPRAYS INTO EACH NOSTRIL TWICE A DAY NEEDED FOR ALLERGY SYMPTOMS active Not Available Not Available No t Available levothyro xine 112 mcg tablet TAKE 1 TABLET BY MOUTH EVERY DAY active Not Available Not Available No t Available oxycodone 5 mg tablet TAKE 1 TABLET BY MOUTH EVERY 6 HOURS FOR 5 DAYS NEEDED FOR PAIN active Not Available Not Available No t Available Zyrtec 10 mg capsule 2018 active Medicati on ID: [id number] B rand Name: Zyrtec S end Method: E-Prescr ibed Sub s Allowed: subs OK Medic ationGen ericName : Zyrtec Not Available Not Available Not Available Spectravi te Women 18 mg-400 mcg tablet active Medicati on ID: [id number] B rand Name: Spectrav ite Women Se nd Method: E-Prescr ibed Sub s Allowed: subs OK Medic ationGen ericName : Spectrav ite Women Not Available Not Available Not Available Vitals None Recorded Social History None recorded. Functional Status None recorded. Mental Status None recorded. Family History Nothing Reported. Medical History No medical history recorded. Gynecological HistoryNo gynecological history recorded. Obstetrics History GPAL:G 0 P 0 0 0 0 Past Encounters Encounter ID Performer Location Encounter Start Date Encounter Closed Date Diagnosis/Indication Diagnosis SNOMED-CT Code Diagnosis ICD10 Code Diagnosis Note [id number] CISCO JEFFERSON RN Allergy [address] [facility] [address] [place] [address] 06/03/2024 15:02:28 06/03/2024 15:03:18 Perennial allergic rhinitis 722596474 J30.89 [id number] MOUNA JAY Allergy [address] [facility],[place] [address] [place] [address] 06/10/2024 12:12:31 06/10/2024 12:15:10 Perennial allergic rhinitis 396792674 J30.89 [id number] SIMON HO MD Allergy [address] [facility],[place] [address] [facility] [place] [address] 06/17/2024 15:26:05 06/17/2024 15:28:14 Perennial allergic rhinitis 888787872 J30.89 [id number] SHAUN PAIGE, [facility] Allergy [address] [facility],[place] [address] [place] [address] 06/23/2024 15:27:39 06/23/2024 15:28:54 Perennial allergic rhinitis 757260478 J30.89 [id number] LULU STRONG [facility] Allergy [address] [facility],[place] [address] [place] [address] 07/01/2024 14:35:20 07/01/2024 14:36:47 Perennial allergic rhinitis 176546651 J30.89 Health Concerns Section Related Observation LastModified by Organization Detai ls LastModified Time None Recorded Concern Status LastModified by Organization Details LastModified Time None Recorded Payers Encounter Date Sequence Insurance Name Policy Number Policy Coleman Covered Member ID Coleman Member ID Guarantor Name 07/01/2024 1 [employer] (MEDICAID REPLACEMENT - HMO) MARCELONACO Lori Peralta [id number] Lori Peralta OBGyn Episode No OBEpisode recorded.
--- OUTSIDE RECORDS SUMMARY | 2024-07-04 15:56 | XMS_ITS | Clinical Summary ---
Author Organization 175 [facility] Address [address] [place] [address] Phone Care Team Providers Care Soft Water Mechanic Name Role Phone Nancy Newsome MD Primary Care Provider [phone] Allergies Active Allergy Reactions Criticality Noted Date Comments Hazelnut 03/02/2024 Tree Nut 03/02/2024 Medications cetirizine (ZyrTEC) 10 mg chewable tablet Chew 1 tablet (10 mg total) 1 (one) time each day. Active ciprofloxacin (CILOXAN) 0.3 % ophthalmic solution 1 drop every 2 (two) hours. Administer 1 drop, every 2 hours, while awake, for 2 days. Then 1 drop, every 4 hours, while awake, for the next 5 days. Active levothyroxine (SYNTHROID, LEVOTHROID) 88 mcg tablet Take 1 tablet (88 mcg total) by mouth 1 (one) time each day before breakfast. Active ferrous sulfate 325 mg (65 mg elemental iron) tablet Take 1 tablet (325 mg total) by mouth 1 (one) time each day with breakfast. Active ammonium lactate (AmLactin) 12 % lotion Apply topically if needed for dry skin. 400 g 4 03/10/20 25 Active ammonium lactate (AmLactin) 12 % lotion Apply topically if needed for dry skin. 400 g 3 5 11/08/19 25 Active Active Problems Problem Noted Date Diagnosed Date Corns and callosities 03/02/2024 Hypothyroid 03/02/2024 Iron deficiency anemia 03/02/2024 Intrinsic eczema 03/02/2024 Encounters Date Type Department Care Team Description 05/11/2024 1:30 PM EST Office Visit Orthopedic Surgery [facility] [address] [facility] [address] [place] [address] Curtis Maxwell DPM Xerosis of skin (Primary Dx) from Last 3 Months Social History Tobacco Use Types Packs/Day Years Used Date Smoking Tobacco: Never Assessed Comments Unknown Sex and Gender Information Value Date Recorded Sex Assigned at Not on file Legal Sex Female 8:14 PM EST Gender Identity Not on file Sexual Orientation Not on file Last Filed Vital Signs Vital Sign Reading Time Taken Comments Blood Pressure - - Pulse - - Temperature - - Respiratory Rate - - Oxygen Saturation - - Inhaled Oxygen Concentration - - Weight 58.1 kg (128 lb) 05/11/2024 1:36 PM EST Height 162.6 cm (5' 4.02 ) 05/11/2024 1:36 PM ES T Body Mass Index 21.96 05/11/2024 1:36 PM EST Plan of Treatment Upcoming Encounters Date Type Department Care Team ([facility] st Contact Info) Description 08/10/2024 1:30 PM EDT Office Visit Orthopedic Surgery - [place] [id number] [address] Curtis Maxwell DPM [address] [address] Health Maintenance Due Date Last Done Comments Gonorrhea/Chlamydia Screening 2001 HPV Vaccines (1 - 3-dose series) 02/21/2016 Meningococcal B Vacine (1 of 2 - Standard) 2017 DTaP,Tdap,and Td Vaccines (1 - Tdap) 02/21/2020 Hepatitis B Vaccines (1 of 3 - 19+ 3-dose series) 02/21/2020 Cervical Cancer Screening: Pap Smear 2022 Depression Screening 04/30/2023 HIV Screening 04/30/2023 Hepatitis C Screening 04/30/2023 Social Influencers of Health Screening 04/30/2023 COVID-19 Vaccine ( - season) 2023 05/06/2021, 04/15/2021 Meningococcal ACWY Vaccine Completed 04/15/2017 Influenza Vaccine Completed 02/09/2024, , 06/22/2019, Additional history exists HIB Vaccines Aged Out No longer eligi ble based on patient's age to complete this topic Hepatitis A Vaccines Aged Out No long er eligible based on patient's age to complete this topic IPV Vaccines Aged Out No longer eligi ble based on patient's age to complete this topic MMR Vaccines Aged Out No longer eligi ble based on patient's age to complete this topic Pneumococcal Vaccine: Pediatrics (0 to 5 Years) and At-Risk Patients (6 to 64 Years) Aged Out No longer eligible based on patient's age to complete this topic RSV Immunization Patients Under 20 months Aged Out No longer eligible based on patient's age to complete this topic Varicella Vaccines Aged Out No longer eligible based on patient's age to complete this topic Insurance [facility] Care Teams Soft Water Mechanic Relationship Specialty Start Date End Date Nancy Newsome MD [address] [place] [address] , [address] [facility] D/B/A: [facility] [place] Walker PCP - General 12/14/23
--- OUTSIDE RECORDS SUMMARY | 2024-07-04 15:56 | XMS_ITS | Data Portability ---
Author Organization [place] - [facility], Allergy Address [address] [place] [phone] Care Team Providers Care Senior Care Assistant Name Role Phone HAILEY LUNDY Primary Care Provider Assessment Encounter Date Assessment Date Assessment LastModified by Organization Details LastModified Time 06/03/2024 06/03/2024 Visit With: Cisco Jefferson RN Use of Antihistamine s: No If yes: Vial Test Change in medications: No If yes ? ? ? Increase in asthma symptoms No Asthma Hx If yes, inhaler use: Reaction to last injections: No If yes: ? ? ? Allergy Symptoms: Other: ? ? ? Missed: Dose Aware of Vial Test Notes:? ? ? [email or web address] Not available 06/03/2024 15:03:01 06/10/2024 06/10/2024 Visit With: Lulu Strong Use of Antihistamine s: No If yes: Vial Test Change in medications: No If yes ? ? ? Increase in asthma symptoms If yes, inhaler use: Reaction to last injections: Yes If yes: ? ? ? Allergy Symptoms: Other: ? ? ? Missed: Dose Decreased Aware of Vial Test Notes:? ? ? [email or web address] Not available 06/10/2024 12:14:15 06/17/2024 06/17/2024 Visit With: Lulu Strong Use of Antihistamine s: No If yes: Vial Test Change in medications: No If yes ? ? ? Increase in asthma symptoms If yes, inhaler use: Reaction to last injections: No If yes: ? ? ? Allergy Symptoms: Other: ? ? ? Missed: Dose Aware of Vial Test Yes Notes:? ? ? [email or web address] Not available 06/17/2024 15:26:45 06/23/2024 06/23/2024 Visit With: MOUNA Zhang Use of Antihistamine s: No If yes: Vial Test Yes Change in medications: No If yes ? ? ? Increase in asthma symptoms If yes, inhaler use: Reaction to last injections: No If yes: ? ? ? Allergy Symptoms: Other: ? ? ? Missed: Dose Aware of Vial Test Notes:? ? ? [email or web address] Not available 06/23/2024 15:28:33 07/01/2024 07/01/2024 Visit With: Lulu Strong Use of Antihistamine s: No If yes: Vial Test Change in medications: No If yes ? ? ? Increase in asthma symptoms No Asthma Hx If yes, inhaler use: Reaction to last injections: No If yes: ? ? ? Allergy Symptoms: Other: ? ? ? Missed: Dose Aware of Vial Test Notes:? ? ? [email or web address] Not available 07/01/2024 14:52:43 Plan of Treatment Reminders Order Date Submit Date Provider Last Modified By Organization Details Last Modified Time Details Appointments [facility]- Allergy f-up 6mon 2024 03:00P M [...] Recorded Time Acute non-infec tive otitis externa 320302586 Active 2019 Unspecifie d acute noninfecti ve otitis externa, left ear; Note: Date Diagnosed: 04/08/2019 1:31 PM (H60.502) Not Available [facility] 4 02:39:44 Bleeding from nose 318517687 Active 2018 Epistaxis; Note: Date Diagnosed: 08/31/2018 12:02 PM (R04.0) Not Available [facility] 4 02:39:42 Allergic rhinitis 35440182 Active 2023 Allergic rhinitis: Due to other [...] ; Start Date : 05/05/2019 Not Available [facility] 4 01:05:52 Nasal congestio n 86612619 Active 2022 Nasal congestion ; Note: Date Diagnosed: 08/11/2022 3:23 PM (R09.81) Not Available [facility] 4 02:39:51 Perennial allergic rhinitis 032597851 Active 2023 SHAUN PAIGE, [address],[place] [address], [place], [address] , [facility] 4 15:15:03 Seasonal allergic rhinitis 486531982 Active 2023 SIMON HO MD [address] [facility],[place] [address], [place], [address] , [facility] 4 11:00:01 Problem Notes None recorded. Procedures Surgical History Date Name Laterality Status Provider Name and Address Organization Details Recorded Time 07/02/19 25 Allergy Immunotherapy Injections completed LULU STRONG [facility] [address] [facility],[place] [address], [place], [address], [place] [facility] 07/01/2024 14:52:40 06/24/19 25 Allergy Immunotherapy Injections completed SHAUN PAIGE, RMA [address],[place] [address], [address], [place] [facility] 06/23/2024 15:28:21 06/18/19 25 Allergy Immunotherapy Injections completed SHAUN PAIGE, RMA [address],[place] [address], [place], [address], [place] [facility] 06/17/2024 15:26:38 06/11/19 25 Allergy Immunotherapy Injections completed LULU STRONG, RMA [address] [address], [place], [address], [place] [facility] 06/10/2024 12:14:00 06/03/19 25 Allergy Immunotherapy Injections completed CISCO JEFFERSON RN [address],[place] [address] [place] [address], [address], [place] [facility] 06/03/2024 15:02:55 05/27/19 25 Allergy Immunotherapy Injections completed CISCO JEFFERSON RN [address],[place] [address] [place] [address], [address], [place] [facility] 05/27/2024 13:18:22 05/19/19 25 Allergy Immunotherapy Injections completed SHAUN PAIGE, RMA [address],[place] [address], [address], [place] [facility] 05/19/2024 15:31:32 05/06/19 25 Allergy Immunotherapy Injections completed SHAUN SALCIDOC, RMA [address], [place], [address], [place] [facility] 05/06/2024 12:10:48 04/28/19 25 Allergy Immunotherapy Injections completed SHAUN SALCIDOC, RMA [address],[place] [address], [address], [place] [facility] 04/28/2024 11:59:53 04/21/19 25 Allergy Immunotherapy Injections completed SHAUN PAIGE, RMA [address],[place] [address], [address], [place] [facility] 04/21/2024 11:49:44 04/12/19 25 Allergy Immunotherapy Injections completed SHAUN PAIGE RMA [address],[place] [address], [address], [place] [facility] 04/12/2024 11:31:04 04/07/19 25 Allergy Immunotherapy Injections completed LULU STRONG RMA [address], [place], [address], [place] [facility] 04/07/2024 14:28:20 03/24/20 24 Allergy Immunotherapy Injections completed CISCO JEFFERSON RN [address],[place] [address] [place] [address], [address], [place] [facility] 03/24/2024 09:06:48 03/17/20 24 Allergy Immunotherapy Injections completed LULU STRONG RMA [address],[place] [address], [address], [place] [facility] 03/17/2024 13:34:10 03/10/20 24 Allergy Immunotherapy Injections completed SHAUN PAIGE, RMA [address], [place], [address], [place] [facility] 03/10/2024 14:29:34 03/02/20 24 Allergy Immunotherapy Injections completed SHAUN SALCIDOC, RMA [address],[place] [address] [place] [address], [address], [place] [facility] 03/02/2024 13:24:10 02/25/20 24 Allergy Immunotherapy Injections completed LULU STRONG RMA [address], [place], [address], [place] [facility] 02/25/2024 12:05:26 02/18/20 24 Allergy Immunotherapy Injections completed SHAUN SALCIDOC, RMA [address],[place] [address], [address], [place] [facility] 02/18/2024 11:40:09 02/11/20 24 Allergy Immunotherapy Injections completed LULU STRONG RMA [address],[place] [address], [address], [place] [facility] 02/11/2024 11:17:12 02/04/20 24 Allergy Immunotherapy Injections completed CISCO JEFFERSON RN [address],[place] [address], [address], [place] [facility] 02/04/2024 11:26:13 01/26/20 24 Allergy Immunotherapy Injections completed CISCO JEFFERSON RN [address], [place], [address], [place] [facility] 01/26/2024 11:31:41 01/21/20 24 Allergy Immunotherapy Injections completed SHAUN PAIGE RMA [address],[place] [address], [address], [place] [facility] 01/21/2024 11:39:35 01/14/20 24 Allergy Immunotherapy Injections completed LULU STRONG RMA [address],[place] [address] [place] [address], [address], [place] [facility] 01/14/2024 11:50:43 01/01/20 24 Allergy Immunotherapy Injections completed LULU STRONG RMA [address], [place], [address], [place] [facility] 01/01/2024 12:15:39 12/24/19 24 Allergy Immunotherapy Injections completed SHAUN PAIGE RMA [address], [place], [address], [place] [facility] 12/24/2023 14:47:22 12/17/19 24 Allergy Immunotherapy Injections completed LULU STRONG RMA [address], [place], [address], [place] [facility] 12/17/2023 11:38:32 12/04/19 24 Allergy Immunotherapy Injections completed SHAUN PAIGE RMA [address], [place], [address], [place] [facility] 12/04/2023 11:19:28 11/27/19 24 Allergy Immunotherapy Injections completed CISCO JEFFERSON RN [address], [place], [address], [place] [facility] 11/27/2023 10:18:58 11/19/19 24 Allergy Immunotherapy Injections completed MOUNA JAY [address],[place] [address], [address], [place] [facility] 11/19/2023 13:45:27 11/12/19 24 Allergy Immunotherapy Injections completed SHAUN PAIGE RMA [address], [place], [address], [place] [facility] 11/12/2023 14:10:31 11/05/19 24 Allergy Immunotherapy Injections completed CISCO JEFFERSON RN [address] [facility] [address],[place] [address] [place] [address], [address], [place] [facility] 11/05/2023 12:04:52 10/29/19 24 Allergy Immunotherapy Injections completed SHAUN PAIGE RMA [address],[place] [address], [address], [place] [facility] 10/29/2023 11:45:35 10/22/19 24 Allergy Immunotherapy Injections completed SHAUN PAIGE RMA [address], [place], [address], [place] [facility] 10/22/2023 13:08:24 10/15/19 24 Allergy Immunotherapy Injections completed CISCO JEFFERSON RN [address] [facility] [address],[place] [address] [place] [address], [address], [place] [facility] 10/15/2023 13:59:34 10/06/19 24 Allergy Immunotherapy Injections completed SHAUN PAIGE RMA [address], [place], [address], [place] [facility] 10/06/2023 15:11:13 09/30/19 24 Allergy Immunotherapy Injections completed DEVIN JAYA [address],[place] [address], [address], [place] [facility] 09/30/2023 12:16:28 09/15/19 24 Allergy Immunotherapy Injections completed SHAUN PAIGE RMA [address], [place], [address], [facility] - [facility] 09/15/2023 14:12:59 09/08/19 24 Allergy Immunotherapy Injections completed LULU STRONG, [facility] [address] [facility],[place] [address], [place], [address], [facility] - [facility] 09/08/2023 13:41:53 09/01/19 24 Allergy Immunotherapy Injections completed CISCO JEFFERSON RN [address] [facility],[address], [address], [facility] - [facility] 09/01/2023 12:11:41 08/21/19 24 Allergy Immunotherapy Injections completed SHAUN PAIGE, [facility] [address] [facility],[address], [address], [facility] - [facility] 08/21/2023 15:15:30 Imaging Results None recorded. Procedure [...] % lotion 08/11 completed Medicati on ID: [id number] B rand Name: Lotrison e Send Method: E-Prescr ibed Sub s Allowed: [...] as directed 2022 active Medicati on ID: [id number] B rand Name: azelasti ne Send Method: [...] 10 mg tablet active Medicati on ID: [id number] B rand Name: methimaz ole Send Method: [...] mg capsule 2018 active Medicati on ID: [id number] B rand Name: Zyrtec S end Method: E-Prescr ibed Sub s Allowed: subs OK Medic ationGen ericName : Zyrtec Not Available Not Available Not Available Spectravi te Women 18 mg-400 mcg tablet active Medicati on ID: [id number] B rand Name: Spectrav ite Women Se [...] SNOMED-CT Code Diagnosis ICD10 Code Diagnosis Note [id number] SIMON HO MD Allergy [address] [place] [address] 08/21/2023 14:16:34 08/21/2023 16:31:40 Perennial allergic rhinitis 294598981 J30.89 1673 CISCO JEFFERSON RN Allergy [address] [place], [place] [address] [address] [place] [address], [place] [address] 09/01/2023 11:33:22 09/01/2023 12:14:55 Perennial allergic rhinitis [id number] J30.89 6717 LULU STRONG [facility] Allergy [address] [place] [address] [address] [place] [address] 09/08/2023 13:40:56 09/08/2023 15:55:56 Perennial allergic rhinitis [id number] J30.89 7014 SHAUN KORZEC, RMA Allergy [address] [facility],[place] [address] [address] [place] [address] 09/15/2023 13:40:43 09/15/2023 14:45:20 Perennial allergic rhinitis [id number] J30.89 5642 SIMON HO MD [facility] [address] [facility] [place], [place] [address] 09/30/2023 10:35:32 09/30/2023 11:37:29 Seasonal allergic rhinitis 626815401 J30.2 She is benefiting from immunother apy and should continue. No local or systemic reactions. 5671 LULU PASCALE, [facility] Allergy [address] [facility],[place] [address] [place] [address] 09/30/2023 10:50:09 09/30/2023 12:01:07 Perennial allergic rhinitis 647328903 J30.89 6378 [facility], [facility] Allergy [address] [facility], [address] [place] [address] 10/06/2023 14:52:01 10/06/2023 15:13:08 Perennial allergic rhinitis [id number] J30.89 7521 CISCO JEFFERSON RN Allergy [address] [place] [address], [address] [place] [address] 10/15/2023 13:03:18 10/15/2023 14:00:45 Perennial allergic rhinitis [id number] J30.89 8494 [facility], A Allergy [address] [facility],[place] [address] [place] [address] 10/22/2023 13:07:30 10/22/2023 13:08:44 Perennial allergic rhinitis 137513574 J30.89 9517 [facility] Allergy [address] [facility],[place] [address] [place] [address] 10/29/2023 11:44:54 10/29/2023 12:14:40 Perennial allergic rhinitis 516058574 J30.89 [id number] CISCO JEFFERSON RN Allergy [address] [place] [address],[place] [address] [place] [address] 11/05/2023 12:03:40 11/05/2023 12:05:25 Perennial allergic rhinitis [id number] J30.89 [id number] [facility], A Allergy [address] [facility],[place] [address] [place] [address] 11/12/2023 14:09:22 11/12/2023 14:20:20 Perennial allergic rhinitis 067007407 J30.89 [id number] LULU STRONG [facility] Allergy [address] [place] [address],[place] [place] [address] 11/19/2023 13:44:31 11/19/2023 15:15:21 Perennial allergic rhinitis 167752069 J30.89 [id number] CISCO JEFFERSON RN Allergy [address] [place] [address],[place] [address] [place] [address] 11/27/2023 10:18:25 11/27/2023 10:19:27 Perennial allergic rhinitis [id number] J30.89 [id number] [facility], [facility] Allergy [address] [place] [address], [address] [place] [address] 12/04/2023 11:18:48 12/04/2023 11:19:50 Perennial allergic rhinitis 424213390 J30.89 [id number] LULU STRONG [facility] Allergy [address] [place] [address],[place] [address] [place] [address] 12/17/2023 11:37:26 12/17/2023 11:45:31 Perennial allergic rhinitis 214317315 J30.89 [id number] [facility], [facility] Allergy [address] [place] [address],[place] [address] [place] [address] 12/24/2023 14:46:37 12/24/2023 14:48:06 Perennial allergic rhinitis [id number] J30.89 [id number] LULU STRONG [facility] Allergy [address] [place] [address],[place] [address] [place] [address] 01/01/2024 12:14:59 01/01/2024 12:17:10 Perennial allergic rhinitis [id number] J30.89 [id number] LULU STRONG [facility] Allergy [address] [place] [address],[place] [address] [place] [address] 01/14/2024 11:49:55 01/14/2024 11:54:33 Perennial allergic rhinitis [id number] J30.89 30754 SHAUN PAIGE A Allergy [address] [place] [address],[place] [address] [place] [address] 01/21/2024 11:38:59 01/21/2024 11:40:02 Perennial allergic rhinitis [id number] J30.89 [id number] CISCO JEFFERSON RN Allergy [address] [place] [address],[place] [address] [place] [address] 01/26/2024 11:29:50 01/26/2024 11:32:09 Perennial allergic rhinitis [id number] J30.89 [id number] CISCO JEFFERSON RN Allergy [address] [place] [address],[place] [address] [place] [address] 02/04/2024 11:25:34 02/04/2024 11:26:37 Perennial allergic rhinitis 232890492 J30.89 [id number] LULU STRONG [facility] Allergy [address] [place] [address],[place] [address] [place] [address] 02/11/2024 11:16:41 02/11/2024 11:25:25 Perennial allergic rhinitis [id number] J30.89 [id number] SHAUN SALCIDO A Allergy [address] [place] [address], [address] [place] [address] 02/18/2024 11:39:09 02/18/2024 11:40:37 Perennial allergic rhinitis [id number] J30.89 [id number] LULU STRONG [facility] Allergy [address] [place] [address],[place] [address] [place] [address] 02/25/2024 12:04:31 02/25/2024 12:09:16 Perennial allergic rhinitis [id number] J30.89 [id number] SHAUN SALCIDO, A Allergy [address] [place] [address],[place] [address] [place] [address] 03/02/2024 13:23:30 03/02/2024 13:24:31 Perennial allergic rhinitis [id number] J30.89 [id number] SHAUN SALCIDO, A Allergy [address] [place] [address],[place] [address] [place] [address] 03/10/2024 14:28:09 03/10/2024 14:30:02 Perennial allergic rhinitis [id number] J30.89 [id number] LULU STRONG [facility] Allergy [address] [place] [address] [address] [place], [place] [address] 03/17/2024 13:33:21 03/17/2024 13:35:03 Perennial allergic rhinitis [id number] J30.89 [id number] CISCO JEFFERSON RN Allergy [address] [place] [address] [address] [place] [address] 03/24/2024 09:05:46 03/24/2024 09:07:09 Perennial allergic rhinitis [id number] J30.89 [id number] LULU STRONG [facility] Allergy [address] [place] [address] [address] [place] [address] 04/07/2024 14:27:36 04/07/2024 14:34:56 Perennial allergic rhinitis [id number] J30.89 [id number] SHAUN SALCIDO [facility] Allergy [address] [place] [address] [address] [place] [address] 04/12/2024 11:30:11 04/12/2024 11:31:40 Perennial allergic rhinitis [id number] J30.89 [id number] SHAUN SALCIDO [facility] Allergy [address] [place] [address] [address] [place] [address] 04/21/2024 11:47:08 04/21/2024 11:50:47 Perennial allergic rhinitis [id number] J30.89 [id number] SIMON HO MD [facility] [address] [place] [address] 04/28/2024 11:51:55 04/28/2024 12:09:58 Seasonal allergic rhinitis 398085576 J30.2 She is benefiting from immunother apy and should continue. No local or systemic reactions. [id number] SHAUN SALCIDO [facility] Allergy [address] [place] [address],[place] [address] [place] [address] 04/28/2024 11:51:23 04/28/2024 12:00:12 Perennial allergic rhinitis [id number] J30.89 [id number] SHAUN SALCIDO, [facility] Allergy [address],[place] [address] [place] [address] 05/06/2024 12:09:32 05/06/2024 12:11:21 Perennial allergic rhinitis [id number] J30.89 [id number] [facility], [facility] Allergy [address] [place] [address],[place] [address] [place] [address] 05/19/2024 15:30:58 05/19/2024 15:32:00 Perennial allergic rhinitis [id number] J30.89 [id number] CISCO JEFFERSON RN Allergy [address] [place] [address] [address] [place] [address] 05/27/2024 13:16:51 05/27/2024 13:19:06 Perennial allergic rhinitis [id number] J30.89 11857 CISCO JEFFERSON RN Allergy [address] [place] [address], [address] [place] [address] 06/03/2024 15:02:28 06/03/2024 15:03:18 Perennial allergic rhinitis [id number] J30.89 [id number] LULU STRONG [facility] Allergy [address] [place] [address],[place] [address] [place] [address] 06/10/2024 12:12:31 06/10/2024 12:15:10 Perennial allergic rhinitis [id number] J30.89 [id number] SIMON HO MD Allergy [address] [place] [address],[place] [address] [place] [address] 06/17/2024 15:26:05 06/17/2024 15:28:14 Perennial allergic rhinitis [id number] J30.89 [id number] [facility], [facility] Allergy [address] [place] [address],[place] [address] [place] [address] 06/23/2024 15:27:39 06/23/2024 15:28:54 Perennial allergic rhinitis [id number] J30.89 [id number] LULU STRONG [facility] Allergy [address] [place] [address],[place] [address] [place] [address] 07/01/2024 14:35:20 07/01/2024 14:36:47 Perennial allergic rhinitis [id number] J30.89 Health Concerns Section Related Observation LastModified by Organization Detai ls LastModified Time None Recorded Concern Status LastModified by Organization Details LastModified Time None Recorded Advance Directives Directive None Recorded Payers Encounter Date Sequence Insurance Name Policy Number Policy Coleman Covered Member ID Coleman Member ID Guarantor Name 06/03/2024 1 [employer] (MEDICAID REPLACEMENT - HMO) [employer] Nashalie N Peralta Nashalie N Peralta 06/10/2024 1 [employer] (MEDICAID REPLACEMENT - HMO) [employer] Nashalie N Peralta Nashalie N Peralta 06/17/2024 1 [employer] (MEDICAID REPLACEMENT - HMO) [employer] Nashalie N Peralta Nashalie N Peralta 06/23/2024 1 [employer] (MEDICAID REPLACEMENT - HMO) [employer] Nashalie N Peralta Nashalie N Peralta 07/01/2024 1 [employer] (MEDICAID REPLACEMENT - HMO) [employer] Nashalie N Peralta Nashalie N Peralta OBGyn Episode No OBEpisode recorded.
== END 2024-07-04 14:43 | disposition home or self-care (01) ==
LOC: HO.HMCH 14:04
PROVIDERS: PCP Internal Medicine; Visit Provider Internal Medicine
DX: E89.0 Postprocedural hypothyroidism (principal); D50.9 Iron deficiency anemia, unspecified; L20.84 Intrinsic (allergic) eczema; Z88.9 Allergy status to unspecified drugs, medicaments and biological substances

== ENCOUNTER → 2024-07-04 14:03 | Outpatient (BNVA) | payer OTHER, SELFPAY | PROVIDERS: PCP Internal Medicine; Visit Provider Internal Medicine | DX: E89.0 Postprocedural hypothyroidism (principal); D50.9 Iron deficiency anemia, unspecified; L20.84 Intrinsic (allergic) eczema; Z88.9 Allergy status to unspecified drugs, medicaments and biological substances | CPT/HCPCS: 96127; 99212 ==

== ENCOUNTER 2024-08-23 12:11 | Outpatient (AMB) | payer OTHER, SELFPAY ==
[2024-08-23 13:02] VITALS: BP 120/82; BMI 22.0
--- NOTE | 2024-08-23 13:02 | A.OFFVIS_ITS ---
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 Regular monthly menses. Currently is never sexually active. She denies vaginal itching or irritation. She tries to eat healthy and stays active with exercise. Denies family history of breast, ovarian or colon cancer. Unable to tolerate speculum exam previous visit. COUNTS INCLUDE 234 BEDS AT THE [facility] Medical History (Updated 08/23/24 @ 13:55 by Sammie Buchanan CNM) Hypothyroid Hypothyroidism, postop Iron deficiency anemia Intrinsic eczema Surgical History Hx of thyroidectomy Family History Mother Chronic mental illness Hypertension Asthma Hypothyroidism Depression Maternal Grandfather Cancer Maternal Grandmother Hypertension Diabetes Hypercholesteremia Father Anemia Social History (Updated 08/23/24 @ 13:58 by Sammie Buchanan CNM) Household Members: Family Household Members Other:: grandmother Housing: House Alcohol intake: never Patient Tobacco Use Status: Never used Tobacco e-Cigarette/Vaping Use: Never Used Second Hand Smoke Exposure: No service: No 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al status: unemployed 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: [employer] student Cognitive needs: No Hearing needs: No Vision needs: Yes Female Reproductive History Menstrual Age of Menarche: 12 Date of last menstrual period: 08/16/24 Total pregnancies: 0 Review of Systems Const All systems reviewed & are unremarkable except as noted in HPI and below Reports as per HPI Eyes Reports no additional complaints ENT Reports no additional complaints Card Reports no additional complaints Resp Reports no additional complaints GI Reports as per HPI and Reports no additional complaints Reports as per HPI Musc Reports no additional complaints Skin/Breast Reports as per HPI Neuro Reports no additional complaints Psych Reports no additional complaints Endo Reports no additional complaints Rojas/Lymph Reports no additional complaints Aller/Immun Reports no additional complaints Physical Exam Vital Signs: Last Vital Signs BP 120/82 08/23/24 13:02 BMI result Body Mass Index 22.0 Const General: cooperative, healthy appearing, no acute distress, well developed and alert Orientation/consciousness: patient oriented x3 HEENT Head: Yes normal to inspection Eyes General: appearance normal, both eyes and all related structures Neck Neck: Yes normal visual inspection Thyroid: other (Scar) Chest Other: Shaven bilateral areola. 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 External Female Exam: normal external appearance and normal appearance of the urethra Skin Other: Facial acne General skin exam: no rashes or lesions noted Rashes: no rashes Neuro General: patient oriented x3 Cognition (Neuro): normal cognition Extrem General: Yes normal to inspection Psych Attitude: cooperative Thought process: Normal thought process present Assessment & Plan Assessment & Plan (1) Well woman exam (no gynecological exam): Code(s): Z00.00 - Encounter for general adult medical examination without abnormal findings Category: Medical (2) Dysmenorrhea: Code(s): N94.6 - Dysmenorrhea, unspecified Category: Medical Plan: Limited pelvic exam, plan pelvic ultrasound- abdominal scan only. Follow up pending results, tele visit okay. Self-help measures for dysmenorrhea reviewed to include might all, ogis-lfw-bdolsew similar medications, heating pad. Plan Discussed: Current recommendations for pap smears per ASCCP guidelines. Breast awareness and periodic breast exams. Maintain a healthy lifestyle including a well balanced diet and routine exercise. Use condoms for STI and prevention. Patient verbalizes understanding and agrees to the plan of care. She was given opportunity to ask questions and all questions were answered to the best of my ability. RTO in one year for annual gynecology teacher examination. This note is constructed using voice recognition software. While every effort has been made to ensure accuracy, sonography technologist errors may have been included. Orders: Orders US pelvic complete Today N94.6 - Dysmenorrhea, unspecified Coding Level of Care Code Est Pt Prev Care 18-39y(10150) Diagnoses Well woman exam (no gynecological exam) Z00.00 Dysmenorrhea N94.6
--- OUTSIDE RECORDS SUMMARY | 2024-08-23 13:16 | XMS_ITS | Clinical Summary ---
Author Organization 175 [facility] Address [address] [place] [address] Phone Care Team Providers Care Aeronautical Engineering Technologist Name Role Phone Nancy Newsome MD Primary Care Provider [phone] Allergies Active Allergy Reactions Criticality Noted Date [...] for dry skin. 400 g 3 5 02/07/20 25 Active ammonium lactate (AmLactin) 12 % lotion Apply topically if needed for dry skin. 400 g 4 08/11/19 25 Discontinu ed( ) ammonium lactate (AmLactin) 12 % lotion Apply topically if needed for dry skin. 400 g 3 5 08/11/19 25 Discontinu ed( ) Active Problems Problem Noted Date Diagnosed Date Corns and callosities 03/02/2024 Hypothyroid 03/02/2024 Iron deficiency anemia 03/02/2024 Intrinsic eczema 03/02/2024 Encounters Date Type Department Care Team Description 08/10/2024 1:30 PM EDT Office Visit Orthopedic Surgery [facility] [address] [phone] Curtis Maxwell DPM Xerosis of skin (Primary [...] - - Weight 58.1 kg (128 lb) 08/10/2024 1:38 PM EDT Height 162.6 cm (5' 4.02 ) 08/10/2024 1:38 PM ED T Body Mass Index 21.96 08/10/2024 1:38 PM EDT Plan of Treatment Upcoming Encounters Date Type Department Care Team (Late st Contact Info) Description 02/13/2025 1:30 PM EST Office Visit Orthopedic Surgery [facility] [address] [phone] Curtis Maxwell DPM [address] [address] Health Maintenance Due Date Last Done Comments Gonorrhea/Chlamydia Screening 2001 HPV Vaccines (1 - 3-dose series) 02/21/2016 Meningococcal B Vaccine (1 of 2 - Standard) 2017 DTaP,Tdap,and [...] patient's age to complete this topic Insurance DR RENITA [facility] Care Teams Aeronautical Engineering Technologist Relationship Specialty Start Date End Date Nancy Newsome MD [address] [facility] , [address] [facility] Associ D/B/A: [facility] [place] Walker PCP - General 12/14/23
== END 2024-08-23 13:50 | disposition home or self-care (01) ==
LOC: HO.HWS 12:12
PROVIDERS: PCP Internal Medicine; Visit Provider Advanced Practice Midwife
DX: Z01.419 Encounter for gynecological examination (general) (routine) without abnormal findings (principal); N94.6 Dysmenorrhea, unspecified
CPT/HCPCS: 99395; 99459

== ENCOUNTER → 2024-08-23 12:11 | Outpatient (BNVA) | payer OTHER, SELFPAY | PROVIDERS: PCP Internal Medicine; Visit Provider Advanced Practice Midwife | DX: N94.6 Dysmenorrhea, unspecified (principal); Z00.00 Encounter for general adult medical examination without abnormal findings | CPT/HCPCS: 99395; 99459 ==

== ENCOUNTER 2024-10-06 10:29 | Outpatient (REF) | payer OTHER, SELFPAY ==
--- OUTSIDE RECORDS SUMMARY | 2024-10-06 11:14 | XMS_ITS | Clinical Summary ---
Author Organization 175 [facility] Address [address] [place] [address] Phone Care Team Providers Care Control Integration Engineer Name Role Phone Nancy Newsome MD Primary Care Provider [phone] Allergies Active Allergy Reactions Criticality Noted Date [...] 400 g 3 5 02/07/20 25 Active Active Problems Problem Noted Date Diagnosed Date Corns and callosities 03/02/2024 Hypothyroid 03/02/2024 Iron deficiency anemia 03/02/2024 Intrinsic eczema 03/02/2024 Encounters Date Type Department Care Team Description 08/10/2024 1:30 PM EDT Office Visit Orthopedic Surgery [facility] 250 175 [facility] 250 [place] [address] Curtis Maxwell, DPM Xerosis of skin (Primary Dx) from [...] Upcoming Encounters Date Type Department Care Team ([facility] st Contact Info) Description 02/13/2025 1:30 PM EST Office Visit Orthopedic Surgery - [place] [address] [address] Curtis Maxwell, DPM [address] [address] Health Maintenance Due Date Last Done Comments [...] of Health Screening 04/30/2023 COVID-19 Vaccine ( season) 2023 05/06/2021, 04/15/2021 Meningococcal ACWY Vaccine [...] patient's age to complete this topic Insurance Care Teams Control Integration Engineer Relationship Specialty Start Date End Date Nancy Newsome MD 2 [facility] [address] Physician Associ D/B/A: [facility] [place] Walker PCP - General 12/14/23
--- OUTSIDE RECORDS SUMMARY | 2024-10-06 11:14 | XMS_ITS | Continuity of Care Document ---
Author Organization [place] - [facility] Address [address] [place] [address] Care Team Providers Care Switch Coupler Name Role Phone HAILEY LUNDY Primary Care Provider Assessment Encounter Date Assessment Date Assessment LastModified by Organization Details LastModified Time 10/05/2024 10/05/2024 Visit With: MOUNA Zhnag Use of Antihistamine s: No If yes: Vial Test Change in medications: No If yes Increase in asthma symptoms If yes, inhaler use: Reaction to last injections: No If yes: Allergy Symptoms: Other: Missed: Dose Aware of Vial Test Aware: Notes: jay jayc Not available 10/05/2024 14:06:25 Plan of Treatment Reminders Order Date Submit Date Provider Last Modified By Organization Details Last Modified Time Details Appointments [facility]- Allergy f-up 6mon 2024 03:00P M [...] Recorded Time Acute non-infec tive otitis externa 082810154 Active 2019 Unspecifie d acute noninfecti ve otitis externa, left ear; Note: Date Diagnosed: 04/08/2019 1:31 PM (H60.502) Not Available [facility] 4 02:39:44 Bleeding from nose 865196635 Active 2018 Epistaxis; Note: Date Diagnosed: 08/31/2018 12:02 PM (R04.0) Not Available [facility] 02:39:42 Allergic rhinitis 38570617 Active 2023 Allergic rhinitis: Due to other [...] ; Start Date : 05/05/2019 Not Available [facility] 4 01:05:52 Nasal congestio n 01399985 Active 2022 Nasal congestion ; Note: Date Diagnosed: 08/11/2022 3:23 PM (R09.81) Not Available [facility] 4 02:39:51 Perennial allergic rhinitis 013738538 Active 2023 MOUNA ZHANG [address] [facility],[place] [address], [place], [address] , [facility] - [facility] 4 15:15:03 Seasonal allergic rhinitis 994913714 Active 2023 SIMON HO MD [address] [facility],[place] [address], [place], [address] , [place] - [facility] 11:00:01 Problem Notes None recorded. Procedures Surgical History Date Name Laterality Status Provider Name and Address Organization Details Recorded Time 10/06/19 25 Allergy Immunotherapy Injections completed SHAUN LOLYC, RMA [address], [place], [address], [place] [facility] 10/05/2024 14:06:18 09/30/19 25 Allergy Immunotherapy Injections completed SHAUN GRACIEZEC, RMA [address], [place], [address], [place] [facility] 09/29/2024 13:40:36 09/23/19 25 Allergy Immunotherapy Injections completed CISCO JEFFERSON RN [address], [place], [address], [place] [facility] 09/22/2024 09:59:56 09/16/19 25 Allergy Immunotherapy Injections completed SHAUN PAIGE, RMA [address], [place], [address], [place] [facility] 09/15/2024 13:26:50 09/09/19 25 Allergy Immunotherapy Injections completed SHAUN PAIGE, RMA [address], [place], [address], [place] [facility] 09/08/2024 13:12:08 09/01/19 25 Allergy Immunotherapy Injections completed MAURO ASHRAF RMA [address], [place], [address], [facility] - [facility] 08/31/2024 13:27:42 08/17/19 25 Allergy Immunotherapy Injections completed MAURO ASHRAF RMA [address], [place], [address], [place] [facility] 08/16/2024 15:58:39 08/11/19 25 Allergy Immunotherapy Injections completed SHAUN SALCIDOC, RMA [address], [place], [address], [place] [facility] 08/10/2024 15:52:31 08/06/19 25 Allergy Immunotherapy Injections completed CISCO JEFFERSON RN [address], [place], [address], [place] [facility] 08/05/2024 13:41:22 07/28/19 25 Allergy Immunotherapy Injections completed MOUNA JAY [address], [place], [address], [place] [facility] 07/27/2024 13:36:44 07/21/19 25 Allergy Immunotherapy Injections completed SHAUN PAIGE RMA [address], [place], [address], [place] [facility] 07/20/2024 14:12:33 07/15/19 25 Allergy Immunotherapy Injections completed MOUNA JAY [address], [place], [address], [place] [facility] 07/14/2024 15:44:49 07/09/19 25 Allergy Immunotherapy Injections completed SHAUN PAIGE RMA [address], [place], [address], [place] [facility] 07/08/2024 14:07:20 07/02/19 25 Allergy Immunotherapy Injections completed MOUNA JAY [address], [place], [address], [place] [facility] 07/01/2024 14:52:40 06/24/19 25 Allergy Immunotherapy Injections completed SHAUN PAIGE RMA [address], [place], [address], [place] [facility] 06/23/2024 15:28:21 06/18/19 25 Allergy Immunotherapy Injections completed SHAUN PAIGE RMA [address], [place], [address], [place] [facility] 06/17/2024 15:26:38 06/11/19 25 Allergy Immunotherapy Injections completed DEVIN JAYA [address], [place], [address], [place] [facility] 06/10/2024 12:14:00 06/03/19 25 Allergy Immunotherapy Injections completed CISCO JEFFERSON RN [address], [place], [address], [place] [facility] 06/03/2024 15:02:55 05/27/19 25 Allergy Immunotherapy Injections completed CISCO JEFFERSON RN [address], [place], [address], [place] [facility] 05/27/2024 13:18:22 05/19/19 25 Allergy Immunotherapy Injections completed SHAUN PAIGE, RMA [address], [place], [address], [place] [facility] 05/19/2024 15:31:32 05/06/19 25 Allergy Immunotherapy Injections completed SHAUN PAIGE, RMA [address], [place], [address], [place] [facility] 05/06/2024 12:10:48 04/28/19 25 Allergy Immunotherapy Injections completed SHAUN PAIGE RMA [address], [place], [address], [place] [facility] 04/28/2024 11:59:53 04/21/19 25 Allergy Immunotherapy Injections completed SHAUN PAIGE, RMA [address], [place], [address], [place] [facility] 04/21/2024 11:49:44 04/12/19 25 Allergy Immunotherapy Injections completed SHAUN PAIGE RMA [address], [place], [address], [place] [facility] 04/12/2024 11:31:04 04/07/19 25 Allergy Immunotherapy Injections completed MOUNA JAY [address], [place], [address], [place] [facility] 04/07/2024 14:28:20 03/24/20 24 Allergy Immunotherapy Injections completed CISCO JEFFERSON RN [address], [place], [address], [place] [facility] 03/24/2024 09:06:48 03/17/20 24 Allergy Immunotherapy Injections completed MAURO ASHRAF RMA [address], [place], [address], [place] [facility] 03/17/2024 13:34:10 03/10/20 24 Allergy Immunotherapy Injections completed SHAUN PAIGE, RMA [address], [place], [address], [place] [facility] 03/10/2024 14:29:34 03/02/20 24 Allergy Immunotherapy Injections completed SHAUN PAIGE, RMA [address], [place], [address], [place] [facility] 03/02/2024 13:24:10 02/25/20 24 Allergy Immunotherapy Injections completed MAURO ASHRAF RMA [address], [place], [address], [place] [facility] 02/25/2024 12:05:26 02/18/20 24 Allergy Immunotherapy Injections completed SHAUN PAIGE, RMA [address], [place], [address], [place] [facility] 02/18/2024 11:40:09 02/11/20 24 Allergy Immunotherapy Injections completed MAURO ASHRAF RMA [address], [place], [address], [place] [facility] 02/11/2024 11:17:12 02/04/20 24 Allergy Immunotherapy Injections completed CISCO JEFFERSON RN [address], [place], [address], [place] [facility] 02/04/2024 11:26:13 01/26/20 24 Allergy Immunotherapy Injections completed CISCO JEFFERSON RN [address], [place], [address], [place] [facility] 01/26/2024 11:31:41 01/21/20 24 Allergy Immunotherapy Injections completed SHAUN PAIGE, RMA [address], [place], [address], [place] [facility] 01/21/2024 11:39:35 01/14/20 24 Allergy Immunotherapy Injections completed DEVIN JAYA [address], [place], [address], [place] [facility] 01/14/2024 11:50:43 01/01/20 24 Allergy Immunotherapy Injections completed MAURO ASHRAF RMA [address], [place], [address], [place] [facility] 01/01/2024 12:15:39 12/24/19 24 Allergy Immunotherapy Injections completed SHAUN PAIGE, RMA [address], [place], [address], [place] [facility] 12/24/2023 14:47:22 12/17/19 24 Allergy Immunotherapy Injections completed MAURO ASHRAF RMA [address], [place], [address], [place] [facility] 12/17/2023 11:38:32 12/04/19 24 Allergy Immunotherapy Injections completed SHAUN PAIGE RMA [address], [place], [address], [place] [facility] 12/04/2023 11:19:28 11/27/19 24 Allergy Immunotherapy Injections completed CISCO JEFFERSON RN [address] [place] [address], [address], [place] [facility] 11/27/2023 10:18:58 11/19/19 24 Allergy Immunotherapy Injections completed DEVIN JAYA [address], [place], [address], [place] [facility] 11/19/2023 13:45:27 11/12/19 24 Allergy Immunotherapy Injections completed SHAUN PAIGE RMA [address], [place], [address], [place] [facility] 11/12/2023 14:10:31 11/05/19 24 Allergy Immunotherapy Injections completed CISCO JEFFERSON RN [address], [place], [address], [place] [facility] 11/05/2023 12:04:52 10/29/19 24 Allergy Immunotherapy Injections completed SHAUN SALCIDOC, RMA [address], [place], [address], [place] [facility] 10/29/2023 11:45:35 10/22/19 24 Allergy Immunotherapy Injections completed SHAUN SALCIDOC, RMA [address], [place], [address], [place] [facility] 10/22/2023 13:08:24 10/15/19 24 Allergy Immunotherapy Injections completed CISCO JEFFERSON RN [address], [place], [address], [place] [facility] 10/15/2023 13:59:34 10/06/19 24 Allergy Immunotherapy Injections completed SHAUN PAIGE, RMA [address], [place], [address], [place] [facility] 10/06/2023 15:11:13 09/30/19 24 Allergy Immunotherapy Injections completed DEVIN JAYA [address], [place], [address], [place] [facility] 09/30/2023 12:16:28 09/15/19 24 Allergy Immunotherapy Injections completed SHAUN PAIGE, RMA [address], [place], [address], [place] [facility] 09/15/2023 14:12:59 09/08/19 24 Allergy Immunotherapy Injections completed MUARO ASHRAF RMA [address], [place], [address], [place] [facility] 09/08/2023 13:41:53 09/01/19 24 Allergy Immunotherapy Injections completed CISCO JEFFERSON RN [address], [place], [address], [place] [facility] 09/01/2023 12:11:41 08/21/19 24 Allergy Immunotherapy Injections completed SHAUN PAIGE, RMA [address], [place], [address], [place] [facility] 08/21/2023 15:15:30 Imaging Results None recorded. Procedure [...] % lotion 08/11 completed Medicati on ID: [id number] B rand Name: Lotrison e Send Method: [...] as directed 2022 active Medicati on ID: [id number] B rand Name: azelasti ne Send Method: [...] 10 mg tablet active Medicati on ID: [id number] B rand Name: methimaz ole Send Method: [...] mg capsule 2018 active Medicati on ID: [id number] B rand Name: Zyrtec S end Method: E-Prescr ibed Sub s Allowed: subs OK Medic ationGen ericName : Zyrtec Not Available Not Available Not Available Spectravi te Women 18 mg-400 mcg tablet active Medicati on ID: [id number] B rand Name: Spectrav ite Women Se [...] SNOMED-CT Code Diagnosis ICD10 Code Diagnosis Note [id number] DEVIN ZHANGA [facility] [address] [facility] [place] [place] [address] 09/08/2024 13:11:08 09/08/2024 13:12:45 Perennial allergic rhinitis 128408825 J30.89 [id number] DEVIN ZHANGA Allergy [address] [facility] [place] [address] 09/15/2024 13:25:13 09/15/2024 13:27:19 Perennial allergic rhinitis 698423533 J30.89 [id number] CISCO JEFFERSON RN Allergy [address] [facility],[address] [place] [address] 09/22/2024 09:59:16 09/22/2024 10:00:26 Perennial allergic rhinitis 262323052 J30.89 [id number] SHAUN PAIGE RMA Allergy [address] [facility] [place] [place] [address] 09/29/2024 13:39:44 09/29/2024 13:42:39 Perennial allergic rhinitis 272995928 J30.89 [id number] SHAUN PAIGE RMA Allergy [address] [facility] [place] [address] 10/05/2024 14:05:34 10/05/2024 14:06:38 Perennial allergic rhinitis 820715315 J30.89 Health Concerns Section Related Observation LastModified by Organization Detai ls LastModified Time None Recorded Concern Status LastModified by Organization Details LastModified Time None Recorded Payers Encounter Date Sequence Insurance Name Policy Number Policy Coleman Covered Member ID Coleman Member ID Guarantor Name 10/05/2024 1 [employer] (MEDICAID REPLACEMENT - HMO) ROGER Peralta [id number] Lori Peralta OBGyn Episode No OBEpisode recorded.
== END 2024-10-06 10:30 | disposition home or self-care (01) ==
LOC: HO.US 10:29
PROVIDERS: PCP Internal Medicine; Visit Provider Advanced Practice Midwife
DX: Z13.89 Encounter for screening for other disorder (principal)

== ENCOUNTER 2024-11-09 14:07 | Outpatient (AMB) | payer OTHER, SELFPAY ==
[2024-11-09 14:12] VITALS: BP 122/80; BMI 21.5
--- NOTE | 2024-11-09 14:12 | A.OFFPC_ITS ---
Vital Signs 11/09/24 14:12 Height 5 ft 4 in Weight 125 lb BMI 21.5 BP 122/80 Blood Pressure Location Lt brachial Position Sitting Intake Visit Reasons: physical exam Intake Note: Patient here for a physical exam Software Development Project Manager Required: No Accompanied by: Mother Allergies hazelnut Allergy (Mild, Verified 11/09/24 14:19) WATERY EYES mcconnell (CHERRIES) Allergy (Unknown, Verified 11/09/24 14:19) THROAT SWELLING GUINNEA PIG Allergy (Mild, Uncoded 11/09/24 14:19) WATERY, ITCHY EYES Tree Nuts Allergy (Unknown, Uncoded 11/09/24 14:19) rash Medication List - Last Reconciled 11/09/24 by Nancy Newsome MD ascorbate calcium (vitamin C) 500 mg PO DAILY 90 days betamethasone dipropionate 0.05% 1 appl topical DAILY PRN 2 weeks cetirizine 10 mg PO DAILY PRN 90 days epinephrine 0.3 mL IM DIRECTED PRN 30 days ferrous sulfate 325 mg PO BID 90 days ipratropium bromide 2 sprays intranasal BID PRN Synthroid (levothyroxine) 88 mcg PO DAILY NS triamcinolone acetonide 0.5% 1 appl topical DAILY 2 weeks Tobacco use date assessed: 07/04/24 Dental Screening Dental Screen Date: 07/04/24 HPI HPI Comments History of Present Illness Details The patient is a 24-year-old female presenting for a physical examination and preventative care, including vaccination updates. The patient has a history of thyroidectomy performed approximately two years ago, which necessitates ongoing management with levothyroxine 88 mcg daily. She reports adherence to her medication regimen, including iron supplementation taken twice daily for iron deficiency anemia, which has shown improvement in her hemoglobin levels from 9.9 to 10.6. The patient has a minimal level of depression, as indicated by a PHQ-9 score of 3, and denies any significant symptoms impacting her daily life. She maintains a healthy weight and follows a balanced diet, although she is advised to continue monitoring her dietary intake to ensure adequate fiber and hydration. The patient has known allergies to hazelnut, mcconnell, guinea pig, and Paryl, and she carries an Epipen for emergency use. [facility] Medical History Hypothyroid Hypothyroidism, postop Iron deficiency anemia Intrinsic eczema Surgical History Hx of thyroidectomy Family History Mother Chronic mental illness Hypertension Asthma Hypothyroidism Depression Maternal Grandfather Cancer Maternal Grandmother Hypertension Diabetes Hypercholesteremia Father Anemia Social History Household Members: Family Household Members Other:: grandmother Housing: House Alcohol intake: never Patient Tobacco Use Status: Never used Tobacco e-Cigarette/Vaping Use: Never Used Second Hand Smoke Exposure: No service: No 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al status: unemployed 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 1. Little interest or pleasure in doing things: not at all 2. Feeling down, depressed, or hopeless: not at all 3. Trouble falling or staying asleep, or sleeping too much: not at all 4. Feeling tired or having little energy: several days 5. Poor appetite or overeating: not at all 6. Feeling bad about yourself - or that you are a failure or have let yourself or your family down: not at all 7. Trouble concentrating on things, such as reading the newspaper or watching television: several days 8. Moving or speaking so slowly that other people could have noticed. Or the opposite - being so fidgety or restless that you have been moving around a lot more than usual: several days 9. Thoughts that you would be better off or of hurting yourself in some way: not at all Total score: 3 Depression Screening Interpretation: Negative Depression Screening Done: Yes 51417 - PHQ-9 Billing: Yes Source: Developed by Drs. Gee Garcia, Carol Sanchez, Erasto Lord and colleagues, with an educational vanda from [employer]. Thrive Questionnaire Date Thrive assessed: 07/04/24 I am a: Patient What is your living situation today?: I have a steady place to live Within the past 12 months, did the food you bought not last and you didn't have the money to get more?: Sometimes True Within the past 12 months, did you worry whether your food would run out before you got money to buy more?: Never true Do you have trouble paying for medicines?: No Do you have trouble getting transportation to medical appointments?: No Do you have trouble paying your heating and electricity bill?: No Do you have trouble taking care of your child, family member or friend?: No Do you have trouble with day-to-day activities such as bathing, preparing meals, shopping, managing finances, etc.?: No Are you currently unemployed and looking for a job?: I choose not to answer this question Are you interested in more education?: Yes Please select the resources that you would like help with: None Currently or been in a relationship where the following occur: No concerns reported THRIVE Score: 1 AUDIT C Alcohol Use Questionnaire (AUDIT-C) 1. How often do you have a drink containing alcohol?: Never Total Score: 0 Score Reviewed/Action Taken: No JUSTIN-7 AMB Questionnaire JUSTIN-7 Date JUSTIN - 7 assessed: 07/04/24 Feeling nervous, anxious, or on edge: 0 = Not at all Not being able to stop or control worryin = Not at all Worrying too much about different things: 0 = Not at all Trouble relaxin = Not at all Being so restless that it is hard to sit still: 0 = Not at all Becoming easily annoyed or irritable: 1 = Several days Feeling afraid as if something awful might happen: 0 = Not at all Total JUSTIN-7 score (0-4 normal; 5-9 mild; 10-14 moderate; 15-21 severe): 1 Source: Developed by Drs. Gee Garcia, Carol Sanchez, Erasto Lord and colleagues, with an educational vanda from [employer]. JUSTIN-7 Assessment Billing JUSTIN-7 Assessment Tool: JUSTIN-7 Assessment 56917 Review of Systems Const All systems reviewed & are unremarkable except as noted in HPI and below Card Denies chest pain at rest, Denies chest pain with activity, Denies edema, Denies irregular heart rhythm, Denies claudication, Denies dyspnea, Denies dyspnea on exertion, Denies orthopnea, Denies paroxysmal nocturnal dyspnea and Denies slow heart rate Resp Denies cough, Denies dyspnea and Denies dyspnea on exertion GI Denies abdominal pain, Denies change in bowel habits, Denies excessive flatus, Denies nausea and Denies vomiting Denies urinary incontinence, Denies urinary hesitancy and Denies urinary urgency Musc Denies abnormal gait, Denies atrophy, Denies deformity and Denies limited range of motion Skin/Breast Denies bleeding lesions, Denies changing lesions and Denies rash Neuro Denies abnormal gait, Denies behavioral changes, Denies confusion and Denies lack of coordination Psych Denies behavioral changes and Denies confusion Physical exam (Primary Care) Vital Signs: Last Vital Signs BP 122/80 11/09/24 14:12 BMI result Body Mass Index 21.5 Tobacco/Smoking Status: Tobacco use Status Tobacco use date assessed 07/04/24 11/09/24 14:15 Patient Tobacco Use Status Never used Tobacco 11/09/24 14:15 e-Cigarette/Vaping Use Never Used 11/09/24 14:15 PHQ-9: PHQ-9 Score PHQ-9: Total score 3 11/09/24 14:47 Depression Screening Interpretation: Negative Thrive Assessment: Date of Thrive Assessment Date Thrive assessed 07/04/24 11/09/24 14:15 Currently or been in a relationship where the following occur: No concerns reported Const General: No confusion Orientation/consciousness: patient oriented x3 and No confusion HENMT Head: Yes normal to inspection, Yes normocephalic and Yes atraumatic Ears: external ears normal Eyes General: appearance normal, both eyes and all related structures Eyelids: Yes eyelids normal Conjunctivae: conjunctivae normal Neck Neck: Yes normal visual inspection and Yes supple Resp Effort & Inspection: normal respiratory effort Auscultation: clear to auscultation bilaterally Cardio Jugular venous distension: no JVD Rate: regular rate Rhythm: regular rhythm Heart sounds: S1 normal heart sound present and S2 normal heart sound present GI Inspection: Yes normal to inspection Palpation (GI): Soft to palpation and nontender Auscultation: normal bowel sounds Skin General skin exam: no rashes or lesions noted Neuro General: patient oriented x3, no focal motor deficits and No confusion Extrem General: Yes full ROM Psych Appearance: grossly normal Immunizations Boostrix Tdap 2.5 Lf unit-8 mcg-5 Lf/0.5 mL intramuscular syringe Performing Provider: Nancy Newsome MD [facility] Administered by: MOUNA Grider on 11/09/24 14:59 Dose Route Admin Location Dispensed Lot Number Expiration Date NDC Otr Driver 0.5 mL IM Left Deltoid 0.5 mL [id number] 01/27/27 80404-165-77 [id number] TVINE Total Dispensed Waste 0.5 mL 0 % VIS Given Date VIS Provided VIS Publication Date 11/09/24 Single Vaccine 24 Eligibility Eligibility Date Funding Source Not [facility] Eligible 11/09/24 Private Coding Level of Care Code Est Pt Level 3 (23030) Est Pt Prev Care 18-39y(09008) Diagnoses Physical exam Z00.00 Chronic idiopathic constipation K59.04 Hypothyroidism, postop E89.0 Additional Codes JUSTIN-7 Assessment Billing - JUSTIN-7 Assessment Tool: JUSTIN-7 Assessment 20689 ([id number]) PHQ-9 - 58036 - PHQ-9 Billing: Yes ([id number]) Time Spent (min) 33 Assessment & Plan Assessment & Plan (1) Physical exam: Code(s): Z00.00 - Encounter for general adult medical examination without abnormal findings Category: Medical (2) Chronic idiopathic constipation: Code(s): K59.04 - Chronic idiopathic constipation Category: Medical (3) Hypothyroidism, postop: Code(s): E89.0 - Postprocedural hypothyroidism Category: Medical Plan The patient will receive the Tdap vaccine today to update her tetanus protection, as she is currently overdue for this vaccination. Continued management of hypothyroidism with levothyroxine 88 mcg daily is advised, with regular monitoring of thyroid function tests to ensure optimal dosing. Iron supplementation will continue twice daily to address iron deficiency anemia, with follow-up blood work to monitor hemoglobin levels and ensure continued imp rovement. The patient is encouraged to maintain a balanced diet and adequate hydration to support overall health and manage minimal depressive symptoms. Annual HIV screening is recommended as part of routine health maintenance. Patient was informed and verbally consented to the use of an ambient scribe for clinic note documentation during this visit. Orders: Orders HIV Ab/Ag Today Z11.4 - Encounter for screening for human immunodeficiency virus [HIV] Thyroid Stimulating Hormone Today E03.9 - Hypothyroidism, unspecified Comprehensive [place]. Panel Fast Today Z00.00 - Encounter for general adult medical examination without abnormal findings Lipid Panel Today Z00.00 - Encounter for general adult medical examination without abnormal findings Vitamin B12 and Folate Today E53.8 - Deficiency of other specified B group vitamins Vitamin D 25-OH Total Today E55.9 - Vitamin D deficiency, unspecified TDaP Immunization Today Z23 - Encounter for immunization Medications: New polyethylene glycol 3350 (Miralax) 17 grams PO DAILY PRN 238 grams 0RF constipation 30 days K59.04 - Chronic idiopathic constipation
--- OUTSIDE RECORDS SUMMARY | 2024-11-09 14:40 | XMS_ITS | Clinical Summary ---
Author Organization 175 [facility] Address [address] [place] [address] Phone Care Team Providers Care Terrazzo Supervisor Name Role Phone Nancy Newsome MD Primary Care Provider [phone] Allergies Active Allergy Reactions Criticality Noted Date [...] 1:30 PM EDT Office Visit Orthopedic Surgery [facility] [address] [facility] [address] [place] [address] Curtis Maxwell, DPM Xerosis of [...] Upcoming Encounters Date Type Department Care Team ([facility] st Contact Info) Description 02/13/2025 1:30 PM EST Office Visit Orthopedic Surgery - [place] [phone] [address] Curtis Maxwell, DPM [address] [address] Health Maintenance Due Date Last Done Comments Gonorrhea/Chlamydia Screening 2001 HPV Vaccines (1 - 3-dose series) 02/21/2016 Meningococcal B Vaccine (1 of 2 - Standard) 2017 DTaP,Tdap,and Td Vaccines (1 - Tdap) 02/21/2020 Hepatitis B Vaccines (1 of 3 - 19+ 3-dose series) 02/21/2020 Cervical Cancer Screening: Pap Smear 2022 HIV Screening 04/30/2023 Hepatitis C Screening 04/30/2023 Social Influencers of Health Screening 04/30/2023 COVID-19 Vaccine ( - season) 2023 05/06/2021, 04/15/2021 Depression Screening 04/06/2024 Influenza Vaccine (#1) 2024 , 03/28/2023, 06/22/2019, Additional history exists Meningococcal ACWY Vaccine Completed 04/15/2017 HIB Vaccines Aged Out No longer eligi [...] 5 Years) and At-Risk Patients (6 to 49 Years) Aged Out No longer eligible based on patient's age to complete this topic RSV Immunization Patients Under 20 months Aged Out No longer eligible based on patient's age to complete this topic Varicella Vaccines Aged Out No longer eligible based on patient's age to complete this topic Insurance Care Teams Terrazzo Supervisor Relationship Specialty Start Date End Date Nancy Newsome MD 2 [facility] , [address] Physician Associ D/B/A: [facility] [place] PCP - General 12/14/23
== END 2024-11-09 14:55 | disposition home or self-care (01) ==
LOC: HO.HMCH 14:08
PROVIDERS: PCP Internal Medicine; Visit Provider Internal Medicine
DX: Z00.00 Encounter for general adult medical examination without abnormal findings (principal); K59.04 Chronic idiopathic constipation; E89.0 Postprocedural hypothyroidism; Z23 Encounter for immunization

== ENCOUNTER → 2024-11-09 14:07 | Outpatient (BNVA) | payer OTHER, SELFPAY | PROVIDERS: PCP Internal Medicine; Visit Provider Internal Medicine | DX: Z00.00 Encounter for general adult medical examination without abnormal findings (principal); D50.9 Iron deficiency anemia, unspecified; K59.04 Chronic idiopathic constipation; E89.0 Postprocedural hypothyroidism; Z23 Encounter for immunization | CPT/HCPCS: 90471; 90715; 96127; 99212; 99395 ==

== ENCOUNTER 2024-11-10 08:54 | Outpatient (REF) | payer OTHER, SELFPAY ==
--- OUTSIDE RECORDS SUMMARY | 2024-11-10 09:16 | XMS_ITS | Clinical Summary ---
Author Organization 175 [facility] Address 175 [place] [address] Phone Care Team Providers Care Dining Room Attendant Name Role Phone Nancy Newsome MD Primary Care Provider [phone] Allergies Active Allergy Reactions Criticality Noted Date [...] 1:30 PM EDT Office Visit Orthopedic Surgery [facility] 250 175 [facility] 250 [place] [address] Curtis Maxwell, DPM Xerosis of [...] Upcoming Encounters Date Type Department Care Team ([facility] st Contact Info) Description 02/13/2025 1:30 PM EST Office Visit Orthopedic Surgery - [place] [address] [address] Curtis Maxwell, DPM [address] [address] Health Maintenance Due Date Last Done Comments [...] to complete this topic Insurance Care Teams Dining Room Attendant Relationship Specialty Start Date End Date Nancy Newsome MD 2 [facility] , [address] Physician Associ D/B/A: [facility] [place] Walker PCP - General 12/14/23
[2024-11-10 10:42] LABS: Alanine Aminotransferase 11 U/L (0-31); Albumin Level 4.9 g/dL (3.5-5.0); Alkaline Phosphatase 45 U/L (39-117); Anion Gap 10 (12-20); Aspartate Amino Transferase 20 U/L (5-31); Blood Urea Nitrogen 22 mg/dL (9-16); Calcium 9.2 mg/dL (8.4-10.2); Carbon Dioxide 29 mmol/L (22-29); Chloride 105 mmol/L (96-108); Cholesterol 142 mg/dL (<200); Estimated Glomerular Filt Rate > 60; HDL Cholesterol 46 mg/dL (>40); Potassium 3.3 mmol/L (3.3-5.1); Sodium 141 mmol/L (135-145); Total Protein 7.6 g/dL (6.5-8.0); Triglycerides 67 mg/dL (<150)
[2024-11-10 10:59] LABS: HIV Num 1 0.05 S/CO (0.00-0.99)
[2024-11-10 11:09] LABS: Thyroid Stimulating Hormone 1.03 uIU/mL (0.32-4.0)
[2024-11-10 11:10] LABS: Folate 10.1 ng/mL (> or = 4.0); Vitamin B12 504 pg/mL (200-900)
== END 2024-11-10 08:55 | disposition home or self-care (01) ==
LOC: HO.LAB 08:54
PROVIDERS: PCP Internal Medicine; Visit Provider Internal Medicine
DX: Z00.00 Encounter for general adult medical examination without abnormal findings (principal); Z11.4 Encounter for screening for human immunodeficiency virus [HIV]; E53.8 Deficiency of other specified B group vitamins; E55.9 Vitamin D deficiency, unspecified; E03.9 Hypothyroidism, unspecified
CPT/HCPCS: 36415; 80053; 80061; 82306; 82607; 82746; 84443; 87389

== ENCOUNTER 2024-11-11 13:54 | Outpatient (REF) | payer OTHER, SELFPAY ==
--- NOTE | ~2024-11-11 | US_ITS ---
EXAMINATION: US PELVIS HISTORY: N94.6 - Dysmenorrhea, unspecified COMPARISON: There are no prior studies available for comparison. TECHNIQUE: Transabdominal real-time 2D de santiago-scale ultrasound was performed. FINDINGS: Uterus: The uterus is normal in size, measuring 7.4 x 3.2 x 5.0 cm. Myometrium has a normal echotexture. No fibroids are identified. Endometrium: The endometrial stripe measures 4 mm in thickness. Right ovary: The right ovary measures 1.9 x 2.0 x 2.1 cm. The right ovary is normal in size and echotexture. Left ovary: The left ovary measures 3.1 x 2.4 x 2.2 cm. The left ovary is normal in size and echotexture. Pelvic fluid: none. US/US pelvic complete IMPRESSION: Unremarkable pelvic ultrasound. Electronically signed by: Gee Hamilton MD 11/11/2024 02:54 PM EDT
--- OUTSIDE RECORDS SUMMARY | 2024-11-11 13:58 | XMS_ITS | Clinical Summary ---
Author Organization 175 [facility] Address [address] [place] [address] Phone Care Team Providers Care Wire Winder Name Role Phone Nancy Newsome MD Primary Care Provider [phone] Allergies Active Allergy Reactions Criticality Noted Date [...] Iron deficiency anemia 03/02/2024 Intrinsic eczema 03/02/2024 Social History Tobacco Use Types Packs/Day Years [...] PM EST Office Visit Orthopedic Surgery - [place] [address] [address] Curtis Maxwell, DPM [address] [address] Health Maintenance Due Date Last Done Comments [...] Influencers of Health Screening 04/30/2023 COVID-19 Vaccine (3 - season) 2023 05/06/2021, 04/15/2021 Depression Screening [...] to complete this topic Insurance Care Teams Wire Winder Relationship Specialty Start Date End Date Nancy Newsome MD 2 [facility] , [address] Physician Associ D/B/A: [facility] [place] Walker PCP - General 12/14/23
== END 2024-11-11 13:55 | disposition home or self-care (01) ==
LOC: HO.US 13:54
PROVIDERS: PCP Internal Medicine; Visit Provider Advanced Practice Midwife
DX: N94.6 Dysmenorrhea, unspecified (principal)
CPT/HCPCS: 76856

== ENCOUNTER 2024-11-22 07:49 | Outpatient (AMB) | payer OTHER, SELFPAY ==
--- NOTE | 2024-11-22 07:49 | A.OFFVIS_ITS ---
Intake Visit Reasons: Tv ultra sound follow up Intake Note: [phone] Allergies hazelnut Allergy (Mild, Verified 11/22/24 07:50) WATERY EYES mcconnell (CHERRIES) Allergy (Unknown, Verified 11/22/24 07:50) THROAT SWELLING GUINNEA PIG Allergy (Mild, Uncoded 11/09/24 14:19) WATERY, ITCHY EYES Tree Nuts Allergy (Unknown, Uncoded 11/09/24 14:19) rash Is last menstrual period known: Yes Last menstrual period: 10/27/24 HPI Comments Details: Tele Health Visit Total time I personally spent on visit and management today: 24 minutes. Time spent included review of pertinent office notes in the electronic health record; review of laboratory and imaging results; review of personal family medical history; discussing diagnosis and plan of care with the patient; documenting the encounter in the EMR. Patient presents to discuss: Ultrasound findings, history of dysmenorrhea, vitamin-D deficiency, anemia, thyroidectomy. Not sexually active ever. Taking ferrous sulfate. Not on vitamin D supplements. Takes Tylenol for menstrual cramping. Heavy menstrual bleeding 1 day out of 7. PFSH Medical History Hypothyroid Hypothyroidism, postop Iron deficiency anemia Intrinsic eczema Surgical History Hx of thyroidectomy Family History Mother Chronic mental illness Hypertension Asthma Hypothyroidism Depression Maternal Grandfather Cancer Maternal Grandmother Hypertension Diabetes Hypercholesteremia Father Anemia Social History Household Members: Family Household Members Other:: grandmother Housing: House Alcohol intake: never Patient Tobacco Use Status: Never used Tobacco e-Cigarette/Vaping Use: Never Used Second Hand Smoke Exposure: No service: No 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al status: unemployed 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: [employer] student Cognitive needs: No Hearing needs: No Vision needs: Yes Female Reproductive History Menstrual Age of Menarche: 12 Date of last menstrual period: 10/27/24 Telehealth Telehealth Telehealth Platform: [facility] Location of provider rendering services: practice address Location of patient: address on file Patient Identification confirmed using: Name, : Yes Telehealth method: video Patient verbally consented to treatment: Yes Patient verbally consented to billing insurance company: Yes Patient informed of any privacy concerns related to visit: Yes Results Reviewed Results Reviewed: [address] [address] Ultrasound Report Signed Patient: Lori Peralta MR#: [id number] : 2000 Acct:[id number] Age/Sex: 24 / F ADM Date: 11/11/24 Loc: HO.US Attending Dr: Sammie Buchanan CNM Ordering Physician: Sammie Buchanan CNM Date of Service: 11/11/24 Procedure(s): US pelvic complete Accession Number(s): [id number] cc: Sammie Buchanan CNM; Nancy Daugherty MD~ EXAMINATION: US PELVIS HISTORY: N94.6 - Dysmenorrhea, unspecified COMPARISON: There are no prior studies available for comparison. TECHNIQUE: Transabdominal real-time 2D de santiago-scale ultrasound was performed. FINDINGS: Uterus: The uterus is normal in size, measuring 7.4 x 3.2 x 5.0 cm. Myometrium has a normal echotexture. No fibroids are identified. Endometrium: The endometrial stripe measures 4 mm in thickness. Right ovary: The right ovary measures 1.9 x 2.0 x 2.1 cm. The right ovary is normal in size and echotexture. Left ovary: The left ovary measures 3.1 x 2.4 x 2.2 cm. The left ovary is normal in size and echotexture. Pelvic fluid: none. US/US pelvic complete IMPRESSION: Unremarkable pelvic ultrasound. Electronically signed by: Gee Hamilton MD 11/11/2024 02:54 PM EDT Dictated By: Gee Hamilton MD Signed By: <Electronically signed by Gee Hamilton MD in OV> 11/11/24 1454 DD/ 1433 TD/TT: 11/11/24 1436 Economic Historian: Assessment & Plan Assessment & Plan (1) Dysmenorrhea: Code(s): N94.6 - Dysmenorrhea, unspecified Category: Medical Plan Discussed: Ultrasound findings-unremarkable. Counseled regarding self-help measures for dysmenorrhea including heating pad, use of ibuprofen as directed starting at 400 mg with food. The role of OCPs or other appropriate BC for dysmenorrhea. Use of condoms when intimate for the prevention of STDs in . Advised to start vit D supplements to speak with her primary care regarding options. Annual pipeline gang supervisor follow up scheduled August 2025. The patient expressed understanding and agreement with the plan of care. All of her questions and concerns were addressed to the best of my ability. This note is constructed using voice recognition software. While every effort has been made to ensure accuracy, chinese language professor errors may have been included. Coding Level of Care Code Tele Est Pt Level 3 (73699) Diagnoses Dysmenorrhea N94.6
--- OUTSIDE RECORDS SUMMARY | 2024-11-22 07:51 | XMS_ITS | Clinical Summary ---
Author Organization 175 [facility] Address 175 [place] [address] Phone Care Team Providers Care Fleet Manager/Dispatch Name Role Phone Nancy Newsome MD Primary Care Provider [phone] Allergies Active Allergy Reactions Criticality Noted Date [...] PM EST Office Visit Orthopedic Surgery - [place] [address] [address] Curtis Maxwell, DPM [address] [address] Health Maintenance Due Date Last Done Comments [...] to complete this topic Insurance Care Teams Fleet Manager/Dispatch Relationship Specialty Start Date End Date Nancy Newsome MD 2 [facility] , [address] Physician Associ D/B/A: [facility] [place] Walker PCP - General 12/14/23
== END 2024-11-22 08:44 | disposition home or self-care (01) ==
LOC: HO.HWS 07:49
PROVIDERS: PCP Internal Medicine; Visit Provider Advanced Practice Midwife
DX: N94.6 Dysmenorrhea, unspecified (principal)
CPT/HCPCS: 99213

== ENCOUNTER 2025-03-08 13:41 | Outpatient (AMB) | payer OTHER, SELFPAY ==
[2025-03-08 13:46] VITALS: BP 110/72; PULSE 107; TEMP 36.8; O2SAT 100; BMI 21.8
--- NOTE | 2025-03-08 13:46 | AM.OFFWIN_ITS ---
Intake Vital Signs 03/08/25 13:46 Height 5 ft 4 in Weight 127 lb BMI 21.8 BP 110/72 Blood Pressure Location Rt brachial Position Sitting Pulse 107 H Pulse Source Pulse Oximeter Temp 98.2 F Temp Source Oral Pulse Oximetry (%) 100 Oxygen Delivery Method Room Air Intake Visit Reasons: eP sore throat Intake Note: pt presents with sore throat and bilateral ear pain x3 days Patient Tobacco Use Status: Never used Tobacco Allergies hazelnut Allergy (Mild, Verified 03/08/25 13:55) WATERY EYES mcconnell (CHERRIES) Allergy (Unknown, Verified 03/08/25 13:55) THROAT SWELLING GUINNEA PIG Allergy (Mild, Uncoded 03/08/25 13:55) WATERY, ITCHY EYES Tree Nuts Allergy (Unknown, Uncoded 03/08/25 13:55) rash Do you need a note to return to daycare/school/sports/work: No HPI HPI Comments History of Present Illness Details History of Present Illness - The patient is a 25 year old individua l presenting with her mother for a sore throat. - The symptoms began three days ago. - The patient is able to drink and swall ow and denies coughing. - There is no use of inhalers. - She does not have a runny nose. - She has not been able to drink or eat without pain. - The patient has previously been treate d with antibiotics for similar conditions, although the specific effective medication is not recalled. - She denies fever, chills, CP, SOB, abd pain, or n/v/d. Physical Exam General: Cooperative, healthy appearing, comfortable, no acute distress and well developed Orientation: Patient oriented x3 Limitations: No limitations Head: Normal to inspection Ears: Hearing grossly normal bilaterally Nose: Normal external nose present Face and sinus: Normal facial exam Mouth/throat: Thrush noted on the tongue. Uvula is midline. Oropharynx is erythematous with exudates noted. Neck: Normal visual inspection and Yes full ROM. +lymphadenopathy noted bilaterally. Respiratory: Normal respiratory effort and able to speak in complete sentences. Clear to auscultation bilaterally Cardiovascular: Regular rate and rhythm. Normal S1 and S2 GI: Normal to inspection. Soft to palpation and nontender Skin: No rashes or lesions noted Patient was informed and verbally consented to the use of an ambient scribe for clinic note documentation during this visit. [facility] Medical History Hypothyroid Hypothyroidism, postop Iron deficiency anemia Intrinsic eczema Surgical History Hx of thyroidectomy Family History Mother Chronic mental illness Hypertension Asthma Hypothyroidism Depression Maternal Grandfather Cancer Maternal Grandmother Hypertension Diabetes Hypercholesteremia Father Anemia Social History Household Members: Family Household Members Other:: grandmother Housing: House Alcohol intake: never Patient Tobacco Use Status: Never used Tobacco e-Cigarette/Vaping Use: Never Used Second Hand Smoke Exposure: No service: No 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al status: unemployed 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: [employer] student Cognitive needs: No Hearing needs: No Vision needs: Yes Female Reproductive History Menstrual Age of Menarche: 12 Review of Systems Const All systems reviewed & are unremarkable except as noted in HPI and below Physical Exam Vital Signs: Last Vital Signs Temp 98.2 F 03/08/25 13:46 Pulse 107 H 03/08/25 13:46 BP 110/72 03/08/25 13:46 Pulse Ox 100 03/08/25 13:46 Oxygen Delivery Method Room Air 03/08/25 13:46 BMI result Body Mass Index 21.8 Results AMB Rapid Strep AMB Rapid Strep Negative Last Edit by Desi Green CMA on 03/08/25 14:0 0 Results Reviewed Results Reviewed: Laboratory Last Values Strep Scn Rapid Clinic Negative 03/08/25 13:59 Assessment & Plan Assessment & Plan (1) Sore throat: Code(s): J02.9 - Acute pharyngitis, unspecified (2) Thrush: Code(s): B37.0 - Candidal stomatitis Plan Most likely strep vs viral illness Rapid strep is negative plan - tylenol or motrin as needed - diet as tolerated - Centor criteria is a 3 - will start her on antibiotics 4 times a day for 10 days - prednisone burst for 5 days by request from her mother - follow up with PCP 2. Oral Candidiasis - Findings on oropharyngeal examination are suggestive of oral candidiasis. - Nystatin swish and swallow prescribed. Orders: Orders AMB Rapid Strep Screen Today Z13.9 - Encounter for screening, unspecified Medications: New penicillin V potassium 500 mg PO qid 40 tabs 0RF 10 days nystatin administer 1/2 of dose in each side of the mouth 5 mL buccal qid 140 mL 0RF 7 days prednisone 40 mg (2 x 20 mg) PO DAILY 10 tabs 0RF 5 days Coding Level of Care Code Est Pt Level 4 (79983) Diagnoses Sore throat J02.9 Thrush B37.0
--- OUTSIDE RECORDS SUMMARY | 2025-03-08 16:19 | XMS_ITS | Continuity of Care Document ---
Author Organization [place] [facility], Allergy Address [address] [place] [address] Care Team Providers Care Hedis Abstractor Name Role Phone HAILEY LUNDY Primary Care Provider [phone] Assessment Encounter Date Assessment Date Assessment LastModified by Organization Details LastModified Time 01/05/2025 01/05/2025 Visit With: Lulu Strong Use of Antihistamine s: No If yes: Vial Test Change in medications: No If yes Increase in asthma symptoms If yes, inhaler use: Reaction to last injections: No If yes: Allergy Symptoms: Other: Missed: 1 week Dose Repeated Aware of Vial Test Aware: Notes: [email or web address] Not available 01/05/2025 11:49:43 Plan of Treatment Reminders Order Date Submit Date Provider Last Modified By Organization Details Last Modified Time Details Appointments [facility]- Allergy f-up 6mon 2025 02:00P M SIMON Wells MD Not available Not [...] Name and Address Organization Details Recorded Time Bleeding from nose [id number] Active 2018 Epistaxis; Note: Date Diagnosed: 08/31/2018 12:02 PM (R04.0) Not Available [facility] 4 02:39:42 Acute non-infec tive otitis externa [id number] Active 2019 Unspecifie d acute noninfecti ve otitis externa, left ear; Note: Date Diagnosed: 04/08/2019 1:31 PM (H60.502) Not Available [facility] 02:39:44 Nasal congestio n [id number] Active 2022 Nasal congestion ; Note: Date Diagnosed: 08/11/2022 3:23 PM (R09.81) Not Available [facility] 02:39:51 Allergic rhinitis 58865148 Active 2023 Allergic rhinitis: Due to other [...] ; Start Date : 05/05/2019 Not Available [facility] 4 01:05:52 Perennial allergic rhinitis 759927511 Active [address] [facility],[place] [address], [place], [address] , [facility] 5 14:03:22 Seasonal allergic rhinitis 063384659 Active 2023 SIMON HO MD [address] [facility],[place] [address], [place], [address] , [place] [facility] 11:00:01 Problem Notes None recorded. Procedures Surgical History Date Name Laterality Status Provider Name and Address Organization Details Recorded Time 03/01/20 25 Allergy Immunotherapy Injections completed CISCO JEFFERSON RN [address] [facility] [address] [address] [place] [address], [address], [place] [facility] 03/01/2025 13:12:51 02/17/20 25 Allergy Immunotherapy Injections completed MOUNA JAY [address] [facility] [address],[place] [address] [place] [address], [address], [place] [facility] 02/16/2025 14:03:51 02/04/20 25 Allergy Immunotherapy Injections completed MOUNA JAY [address] [facility] [address] [address] [place] [address], [address], [place] [facility] 02/03/2025 12:09:05 01/19/20 25 Allergy Immunotherapy Injections completed MOUNA JAY [address] [facility],[place] [address] [place] [address], [address], [place] [facility] 01/18/2025 14:03:37 01/06/20 25 Allergy Immunotherapy Injections completed MOUNA JAY [address] [facility],[place] [address] [place] [address], [address], [place] [facility] 01/05/2025 11:49:34 12/24/19 25 Allergy Immunotherapy Injections completed Marco A Blandon [address] [facility],[place] [address] [place] [address], [address], [place] [facility] 12/23/2024 13:26:10 12/09/19 25 Allergy Immunotherapy Injections completed SHAUN PAIGE RMA [address] [facility] [address] [address],[place] [facility], [place], [address], [place] [facility] 12/08/2024 11:48:42 11/25/19 25 Allergy Immunotherapy Injections completed DEVIN JAYA [address] [facility] [address] [address],[place] [address], [address], [place] [facility] 11/24/2024 14:02:17 11/17/19 25 Allergy Immunotherapy Injections completed CISCO JEFFERSON RN [address],[place] [address], [address], [place] [facility] 11/16/2024 13:24:22 11/04/19 25 Allergy Immunotherapy Injections completed SHAUN PAIGE, RMA [address],[place] [address], [place], [address], [place] [facility] 11/03/2024 13:37:48 10/27/19 25 Allergy Immunotherapy Injections completed CISCO JEFFERSON RN [address],[place] [address], [place], [address], [place] [facility] 10/26/2024 13:20:55 10/21/19 25 Allergy Immunotherapy Injections completed CISCO JEFFERSON RN [address] [facility] [address] [address],[place] [address], [address], [place] [facility] 10/20/2024 13:08:59 10/15/19 25 Allergy Immunotherapy Injections completed SHAUN PAIGE RMA [address] [facility] [address],[place] [address], [address], [facility] - [facility] 10/14/2024 14:05:00 10/06/19 25 Allergy Immunotherapy Injections completed SHAUN PAIGE, RMA [address],[place] [address], [address], [facility] - [facility] 10/05/2024 14:06:18 09/30/19 25 Allergy Immunotherapy Injections completed SHAUN SALCIDOC RMA [address],[place] [address], [address], [facility] - [facility] 09/29/2024 13:40:36 09/23/19 25 Allergy Immunotherapy Injections completed CISCO JEFFERSON RN [address] [facility] [address] [address],[place] [address], [address], [place] [facility] 09/22/2024 09:59:56 09/16/19 25 Allergy Immunotherapy Injections completed SHAUN SALCIDOC, RMA [address],[place] [address], [place], [address], [place] [facility] 09/15/2024 13:26:50 09/09/19 25 Allergy Immunotherapy Injections completed SHAUN KORZEC, RMA [address],[place] [address], [place], [address], [place] [facility] 09/08/2024 13:12:08 09/01/19 25 Allergy Immunotherapy Injections completed LULU STRONG RMA [address],[place] [address], [place], [address], [place] [facility] 08/31/2024 13:27:42 08/17/19 25 Allergy Immunotherapy Injections completed LULU STRONG RMA [address],[place] [address], [place], [address], [place] [facility] 08/16/2024 15:58:39 08/11/19 25 Allergy Immunotherapy Injections completed SHAUN PAIGE, RMA [address],[place] [address], [place], [address], [place] [facility] 08/10/2024 15:52:31 08/06/19 25 Allergy Immunotherapy Injections completed CISCO JEFFERSON RN [address],[place] [address], [place], [address], [place] [facility] 08/05/2024 13:41:22 07/28/19 25 Allergy Immunotherapy Injections completed DEVIN JAYA [address],[place] [address], [address], [place] [facility] 07/27/2024 13:36:44 07/21/19 25 Allergy Immunotherapy Injections completed SHAUN PAIGE RMA [address],[place] [address], [place], [address], [place] [facility] 07/20/2024 14:12:33 07/15/19 25 Allergy Immunotherapy Injections completed LULU STRONG RMA [address],[place] [address], [place], [address], [place] [facility] 07/14/2024 15:44:49 07/09/19 25 Allergy Immunotherapy Injections completed SHAUN PAIGE, RMA [address],[place] [address], [place], [address], [place] [facility] 07/08/2024 14:07:20 07/02/19 25 Allergy Immunotherapy Injections completed LULU STRONG RMA [address],[place] [address], [place], [address], [place] [facility] 07/01/2024 14:52:40 06/24/19 25 Allergy Immunotherapy Injections completed SHAUN LOLYC, RMA [address],[place] [address], [place], [address], [place] [facility] 06/23/2024 15:28:21 06/18/19 25 Allergy Immunotherapy Injections completed SHAUN LOLYC, RMA [address],[place] [address], [place], [address], [place] [facility] 06/17/2024 15:26:38 06/11/19 25 Allergy Immunotherapy Injections completed LULU STRONG RMA [address],[place] [address], [place], [address], [place] [facility] 06/10/2024 12:14:00 06/03/19 25 Allergy Immunotherapy Injections completed CISCO JEFFERSON RN [address],[place] [address] [place] [address], [address], [place] [facility] 06/03/2024 15:02:55 05/27/19 25 Allergy Immunotherapy Injections completed CISCO JEFFERSON RN [address],[place] [address], [address], [place] [facility] 05/27/2024 13:18:22 05/19/19 25 Allergy Immunotherapy Injections completed SHAUN PAIGE, RMA [address],[place] [address], [place], [address], [place] [facility] 05/19/2024 15:31:32 05/06/19 25 Allergy Immunotherapy Injections completed SHAUN LOLYC, RMA [address],[place] [address], [address], [place] [facility] 05/06/2024 12:10:48 04/28/19 25 Allergy Immunotherapy Injections completed SHAUN GRACIEZEC, RMA [address],[place] [address], [place], [address], [place] [facility] 04/28/2024 11:59:53 04/21/19 25 Allergy Immunotherapy Injections completed SHAUN SALCIDOC, RMA [address],[place] [address], [place], [address], [place] [facility] 04/21/2024 11:49:44 04/12/19 25 Allergy Immunotherapy Injections completed SHAUN GRACIEZEC, RMA [address],[place] [address], [place], [address], [place] [facility] 04/12/2024 11:31:04 04/07/19 25 Allergy Immunotherapy Injections completed LULU STRONG, RMA [address],[place] [address], [place], [address], [place] [facility] 04/07/2024 14:28:20 03/24/20 24 Allergy Immunotherapy Injections completed CISCO JEFFERSON RN [address],[place] [address], [address], [place] [facility] 03/24/2024 09:06:48 03/17/20 24 Allergy Immunotherapy Injections completed LULU STRONG RMA [address],[place] [address], [place], [address], [place] [facility] 03/17/2024 13:34:10 03/10/20 24 Allergy Immunotherapy Injections completed SHAUN PAIGE, RMA [address],[place] [address], [address], [place] [facility] 03/10/2024 14:29:34 03/02/20 24 Allergy Immunotherapy Injections completed SHAUN PAIGE, RMA [address],[place] [address], [place], [address], [place] [facility] 03/02/2024 13:24:10 02/25/20 24 Allergy Immunotherapy Injections completed LULU STRONG RMA [address],[place] [address], [address], [place] [facility] 02/25/2024 12:05:26 02/18/20 24 Allergy Immunotherapy Injections completed SHAUN SALCIDOC, RMA [address],[place] [address], [address], [place] [facility] 02/18/2024 11:40:09 02/11/20 24 Allergy Immunotherapy Injections completed MOUNA JAY [address],[place] [address], [place], [address], [place] [facility] 02/11/2024 11:17:12 02/04/20 24 Allergy Immunotherapy Injections completed CISCO JEFFERSON RN [address],[place] [address], [place], [address], [place] [facility] 02/04/2024 11:26:13 01/26/20 24 Allergy Immunotherapy Injections completed CISCO JEFFERSON RN [address],[place] [address], [place], [address], [place] [facility] 01/26/2024 11:31:41 01/21/20 24 Allergy Immunotherapy Injections completed SHAUN PAIGE RMArnav [address],[place] [address], [place], [address], [place] [facility] 01/21/2024 11:39:35 01/14/20 24 Allergy Immunotherapy Injections completed MOUNA JAY [address],[place] [address], [place], [address], [place] [facility] 01/14/2024 11:50:43 01/01/20 24 Allergy Immunotherapy Injections completed MOUNA JAY [address],[place] [address], [place], [address], [place] [facility] 01/01/2024 12:15:39 12/24/19 24 Allergy Immunotherapy Injections completed SHAUN PAIGE RMA [address],[place] [address], [place], [address], [place] [facility] 12/24/2023 14:47:22 12/17/19 24 Allergy Immunotherapy Injections completed LULU STRONG RMA [address],[place] [address], [place], [address], [place] [facility] 12/17/2023 11:38:32 12/04/19 24 Allergy Immunotherapy Injections completed SHAUN PAIGE RMA [address],[place] [address], [place], [address], [place] [facility] 12/04/2023 11:19:28 08/23/20 24 Allergy Immunotherapy Injections completed CISCO JEFFERSON RN [address],[place] [address], [place], [address], [place] [facility] 11/27/2023 10:18:58 11/19/19 24 Allergy Immunotherapy Injections completed LULU STRONG RMArnav [address],[place] [address], [address], [place] [facility] 11/19/2023 13:45:27 11/12/19 24 Allergy Immunotherapy Injections completed SHAUN PAIGE RMA [address],[place] [address], [place], [address], [place] [facility] 11/12/2023 14:10:31 11/05/19 24 Allergy Immunotherapy Injections completed CISCO JEFFERSON RN [address] [facility] [address],[place] [address] [place] [address], [address], [place] [facility] 11/05/2023 12:04:52 10/29/19 24 Allergy Immunotherapy Injections completed SHAUN PAIGE RMA [address],[place] [facility], [place], [address], [place] [facility] 10/29/2023 11:45:35 10/22/19 24 Allergy Immunotherapy Injections completed SHAUN PAIGE RMA [address],[place] [address], [address], [place] [facility] 10/22/2023 13:08:24 10/15/19 24 Allergy Immunotherapy Injections completed CISCO JEFFERSON RN [address] [facility] [address],[place] [address] [place] [address], [address], [place] [facility] 10/15/2023 13:59:34 10/06/19 24 Allergy Immunotherapy Injections completed SHAUN PAIGE RMA [address],[place] [address], [address], [place] [facility] 10/06/2023 15:11:13 09/30/19 24 Allergy Immunotherapy Injections completed MOUNA JAY [address],[place] [address], [address], [place] [facility] 09/30/2023 12:16:28 09/15/19 24 Allergy Immunotherapy Injections completed SHAUN SALCIDO, RM [address],[place] [address], [place], [address], [facility] 09/15/2023 14:12:59 09/08/19 24 Allergy Immunotherapy Injections completed LULU STRONG, A [address] [facility],[place] [address], [place], [address], [facility] - [facility] 09/08/2023 13:41:53 09/01/19 24 Allergy Immunotherapy Injections completed CISCO JEFFERSON, KRIS [address] [facility],[place] [address], [place], [address], [facility] - [facility] 09/01/2023 12:11:41 08/21/19 24 Allergy Immunotherapy Injections completed SHAUN GRACIETERRY, [facility] [address] [facility] [address],[facility] [address], [place], [address], [facility] 08/21/2023 15:15:30 Imaging Results None recorded. Procedure Notes None recorded. Medical Equipment None Reported. Allergies Allergen ID Allergen Name Allergen Category Reaction Reaction Severity Criticality Documentation Date Start Date Code Code System Note Provider Name and Address Organization Details Recorded Time 732352 hazelnut allergeni c extract food Not available Not available Not available 03/01/20252023 01006 3 RxNorm Not Available [place] - External Data Service - prod 13:12:45 Medications Name Sig Start Date Stop Date Status Note LastModified by Organization Details LastModified Time acetamino phen 325 mg tablet TAKE 2 TABLETS BY MOUTH EVERY 4 HOURS FOR 10 DAYS NEEDED FOR PAIN active Not Available Not Available No t Available ammonium lactate 12 % lotion APPLY TOPICALL Y IF NEEDED FOR DRY SKIN. active Not Available Not Available No t Available Vitamin C 500 mg tablet TAKE 1 TABLET BY MOUTH EVERY DAY active Not Available Not Available No t Available triamcino lone acetonide 0.5 % topical cream APPLY TOPICALL Y DAILY FOR 2 WEEKS active Not Available Not Available No t Available cetirizin e 10 mg tablet TAKE 1 TABLET BY MOUTH EVERY DAY NEEDED FOR ALLERGIE S active Not Available Not Available No t Available clotrimaz ole-betam ethasone 1 %-0.05 % lotion 08/11 completed Medicati on ID: [id number] B rand Name: Dannyrisjas e Send Method: E-Prescr ibed Sub s [...] Not Available Not Available No t Available betametha sone dipropion ate 0.05 % topical cream APPLY TOPICALL Y DAILY NEEDED FOR SKIN IRRITATI ON FOR 2 WEEKS active Not Available Not Available No t Available azelastin e 137 mcg (0.1 %) nasal spray Inhale 2 spray once a day as directed 2022 active Medicati on ID: [id number] B rand Name: azelasti ne Send Method: [...] 10 mg tablet active Medicati on ID: [id number] B rand Name: methimaz ole Send Method: E-Prescr ibed Sub s Allowed: subs OK Medic ationGen ericName : methimaz ole Not Available Not Available Not Available fluticaso ne propionat e 50 mcg/actua tion nasal spray,anca pension USE 2 SPRAYS NASALLY ONCE A DAY 2024 active Not Available Not Available Not Avai lable clotrimaz ole 1 % topical cream APPLY [...] Not Available Not Available No t Available Gavilax 17 gram/dose oral powder MIX AND DRINK 17G BY MOUTH DAILY NEEDED FOR CONSTIPA TION FOR 30 DAYS active Not Available Not Available No t Available Zyrtec 10 mg capsule 2018 active Medicati on ID: [id number] B rand Name: Zyrtec S end Method: E-Prescr ibed Sub s Allowed: subs OK Medic ationGen ericName : Zyrtec Not Available Not Available Not Available Spectravi te Women 18 mg-400 mcg tablet active Medicati on ID: [id number] B rand Name: Spectrav ite Women Se [...] Diagnosis SNOMED-CT Code Diagnosis ICD10 Code Diagnosis IMO Codes Diagnosis Note 88716 DEVIN W[address]SA Allergy [address] [facility] 100 [place] [address] 12/08/2024 11:47:54 12/08/2024 11:49:09 Perennial allergic rhinitis [id number] J30.89 [id number] SHAUN PAIGE A Allergy [address] [facility] 100 [place] [address] 12/23/2024 13:25:15 12/23/2024 13:26:32 Perennial allergic rhinitis [id number] J30.89 70466 LULU PASCALE [facility] Allergy [address] [facility] 100 [place] [address] 01/05/2025 11:48:55 01/05/2025 11:49:56 Perennial allergic rhinitis [id number] J30.89 Health Concerns Section Related Observation LastModified by Organization Detai ls LastModified Time None Recorded Concern Status LastModified by Organization Details LastModified Time None Recorded Payers Encounter Date Sequence Insurance Name Policy Number Policy Coleman Covered Member ID Coleman Member ID Guarantor Name 01/05/2025 1 [employer] (MEDICAID REPLACEMENT - HMO) ROGER Peralta [id number] Lori Peralta OBGysharita Episode No OBEpisode recorded.
--- OUTSIDE RECORDS SUMMARY | 2025-03-08 16:19 | XMS_ITS | Data Portability ---
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 Name Role Phone HAILEY LUNDY Primary Care [...] Repeated Aware of Vial Test Aware: Notes: [email or web address] Not available 01/05/2025 11:49:43 01/18/2025 01/18/2025 Visit With: Lulu Strong Use of Antihistamine s: No If yes: Vial Test No Change in medications: No If yes Increase in asthma symptoms If yes, inhaler use: Reaction to last injections: No If yes: Allergy Symptoms: Other: Missed: 1 week Dose Repeated Aware of Vial Test Yes Aware: Notes: Not available 01/18/2025 14:04:00 02/03/2025 02/03/2025 Visit With: Lulu Strong Use of Antihistamine s: No If yes: Vial Test Yes Change in medications: No If yes Increase in asthma symptoms If yes, inhaler use: Reaction to last injections: No If yes: Allergy Symptoms: Other: Missed: Dose Aware of Vial Test Aware: Notes: [email or web address] Not available 02/03/2025 12:09:14 02/16/2025 02/16/2025 Visit With: Lulu Strong Use of Antihistamine s: No If yes: Vial Test Change in medications: No If yes Increase in asthma symptoms If yes, inhaler use: Reaction to last injections: No If yes: Allergy Symptoms: Other: Missed: 1 week Dose Decreased Aware of Vial Test Aware: Notes:asthma flare up on neck [email or web address] Not available 02/16/2025 14:04:27 03/01/2025 03/01/2025 Visit With: Cisco Jefferson RN Use of Antihistamine s: No If yes: Vial Test Change in medications: No If yes Increase in asthma symptoms If yes, inhaler use: Reaction to last injections: No If yes: Allergy Symptoms: Other: Missed: 1 week Dose Repeated Aware of Vial Test Aware: Notes: [email or web address] Not available 03/01/2025 13:13:00 Plan of Treatment Reminders Order Date Submit Date Provider Last Modified By Organization Details Last Modified Time Details Appointments [facility]- Allergy f-up 6mon 2025 02:00P Joy Wells MD Not available Not available Not [...] Organization Details Recorded Time Bleeding from nose 301011302 Active 2018 Epistaxis; Note: Date Diagnosed: 08/31/2018 12:02 PM (R04.0) Not Available [facility] 4 02:39:42 Acute non-infec tive otitis externa [id number] Active 2019 Unspecifie d acute noninfecti ve otitis externa, left ear; Note: Date Diagnosed: 04/08/2019 1:31 PM (H60.502) Not Available [facility] 4 02:39:44 Nasal congestio n 91745291 Active 2022 Nasal congestion ; Note: Date Diagnosed: 08/11/2022 3:23 PM (R09.81) Not Available [facility] 4 02:39:51 Allergic rhinitis 06825418 Active 2023 Allergic rhinitis: Due to other [...] ; Start Date : 05/05/2019 Not Available [facility] 4 01:05:52 Perennial allergic rhinitis 010020836 Active 2023 MOUNA JAY [address] [place] [address], [phone] , [facility] - [facility] 5 14:03:22 Seasonal allergic rhinitis 837928091 Active 2023 SIMON HO MD [address] [place] [address], [phone] , [facility] [place] 4 11:00:01 Problem Notes None recorded. Procedures Surgical History Date Name Laterality Status Provider Name and Address Organization Details Recorded Time 03/01/20 25 Allergy Immunotherapy Injections completed CISCO JEFFERSON RN [address] [place] [address],[address], [address], [facility] - [facility] 03/01/2025 13:12:51 02/17/20 25 Allergy Immunotherapy Injections completed LULU PASCALE, RMA [address] [address], [place], [address], [place] [facility] [place] 02/16/2025 14:03:51 02/04/20 25 Allergy Immunotherapy Injections completed DEVIN JAYA [address], [place], [address], [place] [facility] [place] 02/03/2025 12:09:05 01/19/20 25 Allergy Immunotherapy Injections completed LULU STRONG RMA [address] [address], [place], [address], [place] [facility] [place] 01/18/2025 14:03:37 01/06/20 25 Allergy Immunotherapy Injections completed DEVIN JAYA [address] [facility] [address], [place], [address], [place] [facility] [place] 01/05/2025 11:49:34 12/24/19 25 Allergy Immunotherapy Injections completed Marco A Blandon 100 [facility] [place] [address] [place] [address], [address], [place] [facility] [place] 12/23/2024 13:26:10 12/09/19 25 Allergy Immunotherapy Injections completed SHAUN PAIGE RMA [address] [facility] [address],[place] [address] [place] [address], [address], [place] [facility] [place] 12/08/2024 11:48:42 11/25/19 25 Allergy Immunotherapy Injections completed LULU STRONG RMA [address] [facility] [place] [address] [place] [address], [address], [place] [facility] [place] 11/24/2024 14:02:17 11/17/19 25 Allergy Immunotherapy Injections completed CISCO JEFFERSON RN [address] [facility] [address],[place] [address] [place] [address], [address], [place] [facility] [place] 11/16/2024 13:24:22 11/04/19 25 Allergy Immunotherapy Injections completed SHAUN PAIGE RMA [address] [facility] [address],[place] [address], [place], [address], [place] [facility] [place] 11/03/2024 13:37:48 10/27/19 25 Allergy Immunotherapy Injections completed CISCO JEFFERSON RN [address], [place], [address], [place] [facility] [place] 10/26/2024 13:20:55 10/21/19 25 Allergy Immunotherapy Injections completed CISCO JEFFERSON RN [address], [place], [address], [place] [facility] [place] 10/20/2024 13:08:59 10/15/19 25 Allergy Immunotherapy Injections completed SHAUN PAIGE, RMA [address], [place], [address], [place] [facility] [place] 10/14/2024 14:05:00 10/06/19 25 Allergy Immunotherapy Injections completed SHAUN PAIGE, RMA [address] [address], [place], [address], [place] [facility] [place] 10/05/2024 14:06:18 09/30/19 25 Allergy Immunotherapy Injections completed SHAUN PAIGE RMA [address] [facility] [address] [address], [place], [address], [place] [facility] [place] 09/29/2024 13:40:36 09/23/19 25 Allergy Immunotherapy Injections completed CISCO JEFFERSON RN [address] [facility] [address] [address], [place], [address], [place] [facility] [place] 09/22/2024 09:59:56 09/16/19 25 Allergy Immunotherapy Injections completed SHAUN PAIGE RMA [address] [address], [place], [address], [place] [facility] [place] 09/15/2024 13:26:50 09/09/19 25 Allergy Immunotherapy Injections completed SHAUN PAIGE RMA [address] [facility] [address],[place] [address], [place], [address], [place] [facility] [place] 09/08/2024 13:12:08 09/01/19 25 Allergy Immunotherapy Injections completed MOUNA JAY [address], [place], [address], [place] [facility] [place] 08/31/2024 13:27:42 08/17/19 25 Allergy Immunotherapy Injections completed LULU PASCALE, RMA [address], [place], [address], [place] [facility] [place] 08/16/2024 15:58:39 08/11/19 25 Allergy Immunotherapy Injections completed SHAUN PAIGE, RMA [address], [place], [address], [place] [facility] [place] 08/10/2024 15:52:31 08/06/19 25 Allergy Immunotherapy Injections completed CISCO JEFFERSON RN [address], [place], [address], [place] [facility] [place] 08/05/2024 13:41:22 07/28/19 25 Allergy Immunotherapy Injections completed LULU STRONG RMA [address], [place], [address], [place] [facility] [place] 07/27/2024 13:36:44 07/21/19 25 Allergy Immunotherapy Injections completed SHAUN PAIGE, RMA [address], [place], [address], [place] [facility] [place] 07/20/2024 14:12:33 07/15/19 25 Allergy Immunotherapy Injections completed LULU STRONG RMA [address] [address], [place], [address], [place] [facility] [place] 07/14/2024 15:44:49 07/09/19 25 Allergy Immunotherapy Injections completed SHAUN PAIGE RMA [address] [address], [place], [address], [place] [facility] [place] 07/08/2024 14:07:20 07/02/19 25 Allergy Immunotherapy Injections completed LULU STRONG RMA [address], [place], [address], [place] [facility] [place] 07/01/2024 14:52:40 06/24/19 25 Allergy Immunotherapy Injections completed SHAUN SALCIDOC, RMA [address] [address], [place], [address], [place] [facility] [place] 06/23/2024 15:28:21 06/18/19 25 Allergy Immunotherapy Injections completed SHAUN PAIGE, RMA [address], [place], [address], [place] [facility] [place] 06/17/2024 15:26:38 06/11/19 25 Allergy Immunotherapy Injections completed LULU STRONG, RMA [address], [place], [address], [place] [facility] [place] 06/10/2024 12:14:00 06/03/19 25 Allergy Immunotherapy Injections completed CISCO JEFFERSON RN [address], [place], [address], [place] [facility] [place] 06/03/2024 15:02:55 05/27/19 25 Allergy Immunotherapy Injections completed CISCO JEFFERSON RN [address], [place], [address], [place] [facility] [place] 05/27/2024 13:18:22 05/19/19 25 Allergy Immunotherapy Injections completed SHAUN PAIGE, RMA [address], [place], [address], [place] [facility] [place] 05/19/2024 15:31:32 05/06/19 25 Allergy Immunotherapy Injections completed SHAUN PAIGE, RMA [address], [place], [address], [place] [facility] [place] 05/06/2024 12:10:48 04/28/19 25 Allergy Immunotherapy Injections completed SHAUN PAIGE, RMA [address], [place], [address], [place] [facility] [place] 04/28/2024 11:59:53 04/21/19 25 Allergy Immunotherapy Injections completed SHAUN PAIGE, RMA [address], [place], [address], [place] [facility] [place] 04/21/2024 11:49:44 04/12/19 25 Allergy Immunotherapy Injections completed SHAUN SALCIDOC, RMA [address], [place], [address], [place] [facility] [place] 04/12/2024 11:31:04 04/07/19 25 Allergy Immunotherapy Injections completed DEVIN JAYA [address], [place], [address], [place] [facility] [place] 04/07/2024 14:28:20 03/24/20 24 Allergy Immunotherapy Injections completed CISCO JEFFERSON RN [address], [place], [address], [place] [facility] [place] 03/24/2024 09:06:48 03/17/20 24 Allergy Immunotherapy Injections completed LULU STRONG RMA [address], [place], [address], [place] [facility] [place] 03/17/2024 13:34:10 03/10/20 24 Allergy Immunotherapy Injections completed SHAUN PAIGE RMA [address], [place], [address], [place] [facility] [place] 03/10/2024 14:29:34 03/02/20 24 Allergy Immunotherapy Injections completed SHAUN PAIGE RMA [address], [place], [address], [place] [facility] [place] 03/02/2024 13:24:10 02/25/20 24 Allergy Immunotherapy Injections completed DEVIN JAYA [address] [address], [place], [address], [place] [facility] [place] 02/25/2024 12:05:26 02/18/20 24 Allergy Immunotherapy Injections completed SHAUN PAIGE RMA [address], [place], [address], [place] [facility] [place] 02/18/2024 11:40:09 02/11/20 24 Allergy Immunotherapy Injections completed LULU STRONG RMA [address], [place], [address], [place] [facility] [place] 02/11/2024 11:17:12 02/04/20 24 Allergy Immunotherapy Injections completed CISCO JEFFERSON RN [address], [place], [address], [place] [facility] [place] 02/04/2024 11:26:13 01/26/20 24 Allergy Immunotherapy Injections completed CISCO JEFFERSON RN [address], [place], [address], [place] [facility] [place] 01/26/2024 11:31:41 01/21/20 24 Allergy Immunotherapy Injections completed SHAUN PAIGE, RMA [address], [place], [address], [place] [facility] 01/21/2024 11:39:35 01/14/20 24 Allergy Immunotherapy Injections completed MOUNA JAY [address], [place], [address], [place] [facility] [place] 01/14/2024 11:50:43 01/01/20 24 Allergy Immunotherapy Injections completed MOUNA JAY [address], [place], [address], [place] [facility] [place] 01/01/2024 12:15:39 12/24/19 24 Allergy Immunotherapy Injections completed SHAUN PAIGE RMA [address], [place], [address], [place] [facility] 12/24/2023 14:47:22 12/17/19 24 Allergy Immunotherapy Injections completed MOUNA JAY [address], [place], [address], [place] [facility] [place] 12/17/2023 11:38:32 12/04/19 24 Allergy Immunotherapy Injections completed SHAUN PAIGE RMA [address], [place], [address], [place] [facility] 12/04/2023 11:19:28 11/27/19 24 Allergy Immunotherapy Injections completed CISCO JEFFERSON RN [address], [place], [address], [place] [facility] 11/27/2023 10:18:58 11/19/19 24 Allergy Immunotherapy Injections completed DEVIN JAYA [address], [place], [address], [place] [facility] [place] 11/19/2023 13:45:27 11/12/19 24 Allergy Immunotherapy Injections completed SHAUN PAIGE, RMA [address], [place], [address], [place] [facility] 11/12/2023 14:10:31 11/05/19 24 Allergy Immunotherapy Injections completed CISCO JEFFERSON RN [address], [place], [address], [place] [facility] 11/05/2023 12:04:52 10/29/19 24 Allergy Immunotherapy Injections completed SHAUN PAIGE, RMA [address], [place], [address], [place] [facility] 10/29/2023 11:45:35 10/22/19 24 Allergy Immunotherapy Injections completed SHAUN PAIGE, RMA [address], [place], [address], [place] [facility] 10/22/2023 13:08:24 10/15/19 24 Allergy Immunotherapy Injections completed CISCO JEFFERSON RN [address], [place], [address], [place] [facility] 10/15/2023 13:59:34 10/06/19 24 Allergy Immunotherapy Injections completed SHAUN PAIGE, RMA [address] [address], [place], [address], [place] [facility] 10/06/2023 15:11:13 09/30/19 24 Allergy Immunotherapy Injections completed MOUNA JAY [address], [place], [address], [place] [facility] 09/30/2023 12:16:28 09/15/19 24 Allergy Immunotherapy Injections completed SHAUN PAIGE RMA [address] [address], [place], [address], [place] [facility] 09/15/2023 14:12:59 09/08/19 24 Allergy Immunotherapy Injections completed MOUNA JAY [address], [place], [address], [place] [facility] 09/08/2023 13:41:53 09/01/19 24 Allergy Immunotherapy Injections completed CISCO JEFFERSON RN 100 [facility],[place] [address], [place], [address], [facility] - [facility] 09/01/2023 12:11:41 08/21/19 24 Allergy Immunotherapy Injections completed DEVIN WATKINSA 100 [facility], [place], [address], [facility] 08/21/2023 15:15:30 Imaging Results None recorded. Procedure Notes None recorded. Medical Equipment None Reported. Allergies Allergen ID Allergen Name Allergen Category Reaction Reaction Severity Criticality Documentation Date Start Date Code Code System Note Provider Name and Address Organization Details Recorded Time 14590606 hazelnut allergeni c extract food Not available Not available Not available 03/01/20252023 33060 3 RxNorm Not Available mony - External Data Service - prod 13:12:45 [...] % lotion 08/11 completed Medicati on ID: [id number] B rand Name: Lotrison e Send Method: [...] as directed 2022 active Medicati on ID: [id number] B rand Name: azelasti ne Send Method: [...] 10 mg tablet active Medicati on ID: [id number] B rand Name: methimaz ole Send Method: E-Prescr ibed Sub s Allowed: subs OK Medic ationGen ericName : methimaz ole Not Available Not Available Not Available fluticaso ne propionat e 50 mcg/actua tion nasal spray,anca pension USE 2 SPRAYS NASALLY ONCE A DAY 2024 active Not Available Not Available Not Avai labenmanuel clotrimaz ole 1 % topical cream APPLY [...] mg capsule 2018 active Medicati on ID: [id number] B rand Name: Zyrtec S end Method: E-Prescr ibed Sub s Allowed: subs OK Medic ationGen ericName : Zyrtec Not Available Not Available Not Available Spectravi te Women 18 mg-400 mcg tablet active Medicati on ID: [id number] B rand Name: Spectrav ite Women Se [...] ICD10 Code Diagnosis IMO Codes Diagnosis Note [id number] SHAUN LOLYZana, MOUNA Allergy 100 [facility],[place] [address] [place] [address] 08/21/2023 14:16:34 08/21/2023 16:31:40 Perennial allergic rhinitis [id number] J30.89 1673 CISCO JEFFERSON RN Allergy 100 [facility],[place] [address] [place] [address] 09/01/2023 11:33:22 09/01/2023 12:14:55 Perennial allergic rhinitis [id number] J30.89 [id number] SHAUN LOLY, [facility] Allergy 100 [facility],[place] [address], [place] [address] 09/08/2023 13:40:56 09/08/2023 15:55:56 Perennial allergic rhinitis [id number] J30.89 3634 [facility] LOLY, A Allergy 100 [facility],[place] [address] [place] [address] 09/15/2023 13:40:43 09/15/2023 14:45:20 Perennial allergic rhinitis [id number] J30.89 [id number] SIMON HO MD [facility] [place] [address] 100 [facility] [place], [place] [address] 09/30/2023 10:35:32 09/30/2023 11:37:29 Seasonal allergic rhinitis 443393009 J30.2 She is benefiting from immunother apy and should continue. No local or systemic reactions. [id number] CISCO JEFFERSON RN Allergy [address] [place] [address], [address] [place] [address] 09/30/2023 10:50:09 09/30/2023 12:01:07 Perennial allergic rhinitis 522613630 J30.89 [id number] CISCO JEFFERSON RN Allergy [address] [place] [address],[place] [address] [place] [address] 10/06/2023 14:52:01 10/06/2023 15:13:08 Perennial allergic rhinitis [id number] J30.89 7521 LULU STRONG, [facility] Allergy [address] [place] [address],[place] [address] [place] [address] 10/15/2023 13:03:18 10/15/2023 14:00:45 Perennial allergic rhinitis [id number] J30.89 8494 SHAUN LOLY, A Allergy 100 [facility],[place] [address] [place] [address] 10/22/2023 13:07:30 10/22/2023 13:08:44 Perennial allergic rhinitis [id number] J30.89 9517 [facility], RMA Allergy 100 [facility],[place] [address] [place] [address] 10/29/2023 11:44:54 10/29/2023 12:14:40 Perennial allergic rhinitis [id number] J30.89 [id number] [facility] Allergy 100 [facility],[address] [address] [place] [address] 11/05/2023 12:03:40 11/05/2023 12:05:25 Perennial allergic rhinitis [id number] J30.89 [id number] 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 [facility],[place] [address] [place] [address] 11/12/2023 14:09:22 11/12/2023 14:20:20 Perennial allergic rhinitis [id number] J30.89 [id number] LULU STRONG, [facility] Allergy [address] [place] [address],[place] [address] [place] [address] 11/19/2023 13:44:31 11/19/2023 15:15:21 Perennial allergic rhinitis [id number] J30.89 [id number] [facility], A Allergy 100 [facility],[address] [address] [place] [address] 11/27/2023 10:18:25 11/27/2023 10:19:27 Perennial allergic rhinitis [id number] J30.89 [id number] [facility], A Allergy 100 [facility],[address] [address] [place] [address] 12/04/2023 11:18:48 12/04/2023 11:19:50 Perennial allergic rhinitis [id number] J30.89 [id number] LULU STRONG A Allergy 100 [facility],[place] [address] [place] [address] 12/17/2023 11:37:26 12/17/2023 11:45:31 Perennial allergic rhinitis [id number] J30.89 10031 [facility], A Allergy 100 [facility],[address] [address] [place] [address] 12/24/2023 14:46:37 12/24/2023 14:48:06 Perennial allergic rhinitis [id number] J30.89 [id number] [facility] R[facility] Allergy 100 [facility] [place],[address] [address] [place] [address] 01/01/2024 12:14:59 01/01/2024 12:17:10 Perennial allergic rhinitis [id number] J30.89 [id number] [facility] R[facility] Allergy 100 [facility] [place],[address] [place] [address] 01/14/2024 11:49:55 01/14/2024 11:54:33 Perennial allergic rhinitis [id number] J30.89 [id number] [facility], A Allergy 100 [facility] [place],[address] [place] [address] 01/21/2024 11:38:59 01/21/2024 11:40:02 Perennial allergic rhinitis [id number] J30.89 [id number] [facility], A Allergy 100 [facility] [place],[address] [place] [address] 01/26/2024 11:29:50 01/26/2024 11:32:09 Perennial allergic rhinitis [id number] J30.89 [id number] CISCO JEFFERSON RN Allergy [address] [place] [address],[address] [place] [address] 02/04/2024 11:25:34 02/04/2024 11:26:37 Perennial allergic rhinitis [id number] J30.89 [id number] CISCO JEFFERSON RN Allergy 100 [facility],[address] [address] [place] [address] 02/11/2024 11:16:41 02/11/2024 11:25:25 Perennial allergic rhinitis [id number] J30.89 [id number] [facility] Allergy 100 [facility] [place],[address] [place] [address] 02/18/2024 11:39:09 02/18/2024 11:40:37 Perennial allergic rhinitis [id number] J30.89 [id number] LULU STRONG, [facility] Allergy 100 [facility] [place],[address] [place] [address] 02/25/2024 12:04:31 02/25/2024 12:09:16 Perennial allergic rhinitis [id number] J30.89 [id number] [facility], A Allergy 100 [facility],[address] [place] [address] 03/02/2024 13:23:30 03/02/2024 13:24:31 Perennial allergic rhinitis [id number] J30.89 [id number] LULU STRONG [facility] Allergy 100 [facility],[address] [address] [place] [address] 03/10/2024 14:28:09 03/10/2024 14:30:02 Perennial allergic rhinitis [id number] J30.89 [id number] CISCO JEFFERSON RN Allergy [address] [place] [address],[place] [address] [place] [place] [address] 03/17/2024 13:33:21 03/17/2024 13:35:03 Perennial allergic rhinitis [id number] J30.89 [id number] [facility], [facility] Allergy [address] [place] [address],[address] [place] [address] 03/24/2024 09:05:46 03/24/2024 09:07:09 Perennial allergic rhinitis [id number] J30.89 [id number] LULU STRONG [facility] Allergy [address] [place] [address],[place] [address] [place] [address] 04/07/2024 14:27:36 04/07/2024 14:34:56 Perennial allergic rhinitis [id number] J30.89 [id number] LULU STRONG, [facility] Allergy [address] [place] [address],[place] [address] [place] [address] 04/12/2024 11:30:11 04/12/2024 11:31:40 Perennial allergic rhinitis [id number] J30.89 [id number] [facility], [facility] Allergy [address] [facility],[address] [place] [address] 04/21/2024 11:47:08 04/21/2024 11:50:47 Perennial allergic rhinitis [id number] J30.89 [id number] SIMON HO MD ENTS of [facility] [place] [address] [facility] [place] [address] 04/28/2024 11:51:55 04/28/2024 12:09:58 Seasonal allergic rhinitis [id number] J30.2 She is benefiting from immunother apy and should continue. No local or systemic reactions. 87566 SHAUN SALCIDO, A Allergy [address] [place] [address],[place] [place] [address] 04/28/2024 11:51:23 04/28/2024 12:00:12 Perennial allergic rhinitis [id number] J30.89 [id number] SHAUN SALCIDO, [facility] Allergy [address] [place] [address],[place] [address] [place] [address] 05/06/2024 12:09:32 05/06/2024 12:11:21 Perennial allergic rhinitis [id number] J30.89 [id number] CISCO JEFFERSON RN Allergy [address] [place] [address] [address] [place] [address] 05/19/2024 15:30:58 05/19/2024 15:32:00 Perennial allergic rhinitis [id number] J30.89 [id number] [facility] All[facility] [address] [place] [address],[place] [address] [place] [address] 05/27/2024 13:16:51 05/27/2024 13:19:06 Perennial allergic rhinitis [id number] J30.89 [id number] CISCO JEFFERSON RN Allergy [address] [place] [address],[place] [address] [place] [address] 06/03/2024 15:02:28 06/03/2024 15:03:18 Perennial allergic rhinitis [id number] J30.89 [id number] LULU STRONG [facility] Allergy [address] [place] [address],[address] [place] [address] 06/10/2024 12:12:31 06/10/2024 12:15:10 Perennial allergic rhinitis [id number] J30.89 [id number] LULU STRONG [facility] Allergy [address] [place] [address],[place] [place] [address] 06/17/2024 15:26:05 06/17/2024 15:28:14 Perennial allergic rhinitis [id number] J30.89 45881 SHAUN LOLY, [facility] Allergy [address] [place] [address],[place] [place] [address] 9 06/23/2024 15:27:39 06/23/2024 15:28:54 Perennial allergic rhinitis [id number] J30.89 [id number] LULU STRONG, [facility] Allergy [address] [place] [address],[place] [place] [address] 07/01/2024 14:35:20 07/01/2024 14:36:47 Perennial allergic rhinitis [id number] J30.89 [id number] [facility], [facility] Allergy [address] [place] [address],[place] [address] [place] [address] 07/08/2024 13:57:17 07/08/2024 14:07:40 Perennial allergic rhinitis [id number] J30.89 [id number] LULU STRONG, [facility] Allergy [address] [place] [address], [address] [place] [address] 07/14/2024 15:43:57 07/14/2024 15:52:59 Perennial allergic rhinitis [id number] J30.89 [id number] CISCO JEFFERSON RN Allergy [address] [place] [address],[address] [place] [address] 07/20/2024 14:10:49 07/20/2024 14:12:54 Perennial allergic rhinitis [id number] J30.89 [id number] LULU STRONG, [facility] Allergy [address] [place] [address],[place] [address] [place] [address] 07/27/2024 13:36:05 07/27/2024 13:37:04 Perennial allergic rhinitis [id number] J30.89 [id number] CISCO JEFFERSON RN Allergy [address] [place] [address],[place] [address] [place] [address] 08/05/2024 13:40:50 08/05/2024 13:41:46 Perennial allergic rhinitis [id number] J30.89 [id number] [facility], [facility] Allergy [address] [place] [address],[address] [place] [address] 08/10/2024 15:48:52 08/10/2024 15:53:04 Perennial allergic rhinitis [id number] J30.89 [id number] LULU STRONG [facility] Allergy [address] [place] [address],[address] [place] [address] 08/16/2024 15:55:31 08/16/2024 15:59:11 Perennial allergic rhinitis [id number] J30.89 08447 LULU STRONG, [facility] Allergy [address] [facility],[address] [place] [address] 08/31/2024 13:26:50 08/31/2024 13:28:08 Perennial allergic rhinitis [id number] J30.89 [id number] [facility] Allergy [address] [place] [address],[address] [place] [address] 09/08/2024 13:11:08 09/08/2024 13:12:45 Perennial allergic rhinitis [id number] J30.89 53824 [facility] Allergy [address] [place] [address],[place] [address] [place] [address] 09/15/2024 13:25:13 09/15/2024 13:27:19 Perennial allergic rhinitis [id number] J30.89 [id number] 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 [address] [place] [address],[address] [place] [address] 09/22/2024 09:59:16 09/22/2024 10:00:26 Perennial allergic rhinitis [id number] J30.89 [id number] [facility] Allergy 100 [facility],[address] [place] [address] 09/29/2024 13:39:44 09/29/2024 13:42:39 Perennial allergic rhinitis [id number] J30.89 [id number] [facility] Allergy [address] [facility],[address] [place] [address] 10/05/2024 14:05:34 10/05/2024 14:06:38 Perennial allergic rhinitis [id number] J30.89 51338 [facility] Allergy [address] [facility],[address] [place] [address] 10/14/2024 14:04:22 10/14/2024 14:05:25 Perennial allergic rhinitis [id number] J30.89 [id number] LULU STRONG [facility] Allergy [address] [facility],[address] [place] [address] 10/20/2024 13:08:20 10/20/2024 13:09:23 Perennial allergic rhinitis [id number] J30.89 [id number] SIMON HO MD E[facility] of [facility] [address] [facility] [place] [address] 10/26/2024 13:23:33 10/26/2024 14:28:35 Seasonal allergic rhinitis [id number] J30.2 She is benefiting from immunother apy and should continue. No local or systemic reactions. 16442 CISCO JEFFERSON RN Allergy [address] [place] [address],[facility] [address] [place] [address] 10/26/2024 13:19:50 10/26/2024 13:21:15 Perennial allergic rhinitis [id number] J30.89 16860 [facility] Allergy [address] [place] [address] [address] [place] [address] 11/03/2024 13:36:58 11/03/2024 13:38:22 Perennial allergic rhinitis [id number] J30.89 [id number] CISCO JEFFERSON RN Allergy [address] [place] [address] [address] [place] [address] 11/16/2024 13:23:19 11/16/2024 13:24:45 Perennial allergic rhinitis [id number] J30.89 07759 LULU STRONG [facility] Allergy [address] [place] [address] [address] [place] [address] 11/24/2024 14:01:35 11/24/2024 14:03:42 Perennial allergic rhinitis [id number] J30.89 [id number] [facility], [facility] Allergy [address] [place] [address],[place] [address] [place] [address] 12/08/2024 11:47:54 12/08/2024 11:49:09 Perennial allergic rhinitis [id number] J30.89 71342 [facility], [facility] Allergy [address] [place] [address], it [address] [place] [address] 12/23/2024 13:25:15 12/23/2024 13:26:32 Perennial allergic rhinitis [id number] J30.89 94142 LULU STRONG [facility] Allergy 100 [facility], it 100 [facility] [address] 01/05/2025 11:48:55 01/05/2025 11:49:56 Perennial allergic rhinitis [id number] J30.89 14171 LULU STRONG [facility] Allergy 100 [facility] 100 [place] [address] 01/18/2025 14:03:08 01/18/2025 14:04:11 Perennial allergic rhinitis [id number] J30.89 13208 LULU STRONG [facility] Allergy [address] [facility], [address] [place] [address] 02/03/2025 12:08:27 02/03/2025 12:09:33 Perennial allergic rhinitis [id number] J30.89 20216 LULU STRONG [facility] Allergy [address] [place] [address],[facility] [address] [place] [address] 02/16/2025 14:03:12 02/16/2025 14:04:43 Perennial allergic rhinitis [id number] J30.89 [id number] CISCO JEFFERSON RN Allergy [address] [place] [address],[facility] [address] [place] [address] 03/01/2025 13:12:19 03/01/2025 13:13:15 Perennial allergic rhinitis [id number] J30.89 Health Concerns Section Related Observation LastModified by Organization Detai ls LastModified Time None Recorded Concern Status LastModified by Organization Details LastModified Time None Recorded Advance Directives Directive None Recorded Payers Insurance Date Sequence Insurance Name Policy Number Policy Coleman Covered Member ID Coleman Member ID Guarantor Name 03/01/2025 1 [employer] (MEDICAID REPLACEMENT - HMO) [employer] Darielalie N Peralta [id number] Nashalie N Peralta 10/06/2023 1 [place] [facility] Nashalie N Peralta [id number] Nashalie N Peralta OBGyn Episode No OBEpisode recorded.
--- OUTSIDE RECORDS SUMMARY | 2025-03-08 16:19 | XMS_ITS | Continuity of Care Document ---
Author Organization [place] [facility] Formerly [facility], Allergy Address [address] [place] [address] Care Team Providers Care Sales Order Coordinator Name Role Phone HAILEY LUNDY Primary Care Provider [phone] Assessment Encounter Date Assessment Date Assessment LastModified by Organization Details LastModified Time 01/18/2025 01/18/2025 Visit With: Lulu Strong Use of Antihistamine s: No If yes: Vial Test No Change in medications: No If yes Increase in asthma symptoms If yes, inhaler use: Reaction to last injections: No If yes: Allergy Symptoms: Other: Missed: 1 week Dose Repeated Aware of Vial Test Yes Aware: Notes: [email or web address] Not available 01/18/2025 14:04:00 Plan of Treatment Reminders Order Date Submit Date Provider Last Modified By Organization Details Last Modified Time Details Appointments [facility]- Allergy f-up 6mon 2025 02:00P M [...] Organization Details Recorded Time Bleeding from nose [id number] Active 2018 Epistaxis; Note: Date Diagnosed: 08/31/2018 12:02 PM (R04.0) Not Available [facility] 4 02:39:42 Acute non-infec tive otitis externa [id number] Active 2019 Unspecifie d acute noninfecti ve otitis externa, left ear; Note: Date Diagnosed: 04/08/2019 1:31 PM (H60.502) Not Available [facility] 02:39:44 Nasal congestio n 52818064 Active 2022 Nasal congestion ; Note: Date Diagnosed: 08/11/2022 3:23 PM (R09.81) Not Available [facility] 02:39:51 Allergic rhinitis 21027912 Active 2023 Allergic rhinitis: Due to other [...] ; Start Date : 05/05/2019 Not Available [facility] 4 01:05:52 Perennial allergic rhinitis 389392916 Active 2023 MOUNA JAY [address] [facility],[place] [address], [place], [address] , [facility] 5 14:03:22 Seasonal allergic rhinitis 545448249 Active 2023 SIMON HO MD [address] [facility],[place] [address], [place], [address] , [place] [facility] [place] 11:00:01 Problem Notes None recorded. Procedures Surgical History Date Name Laterality Status Provider Name and Address Organization Details Recorded Time 03/01/20 25 Allergy Immunotherapy Injections completed CISCO JEFFERSON RN [address], [place], [address], [place] [facility] 03/01/2025 13:12:51 02/17/20 25 Allergy Immunotherapy Injections completed MOUNA JAY [address], [place], [address], [place] [facility] [place] 02/16/2025 14:03:51 02/04/20 25 Allergy Immunotherapy Injections completed MOUNA JAY [address], [place], [address], [place] [facility] 02/03/2025 12:09:05 01/19/20 25 Allergy Immunotherapy Injections completed MOUNA JAY [address] [place] [address], [address], [place] [facility] 01/18/2025 14:03:37 01/06/20 25 Allergy Immunotherapy Injections completed MOUNA JAY [address], [place], [address], [place] [facility] 01/05/2025 11:49:34 12/24/19 25 Allergy Immunotherapy Injections completed Marco A Blandon [address] [place] [address], [address], [place] [facility] 12/23/2024 13:26:10 12/09/19 25 Allergy Immunotherapy Injections completed SHAUN PAIGE, RMA [address], [place], [address], [place] [facility] 12/08/2024 11:48:42 11/25/19 25 Allergy Immunotherapy Injections completed DEVIN JAYA [address], [place], [address], [place] [facility] 11/24/2024 14:02:17 11/17/19 25 Allergy Immunotherapy Injections completed CISCO JEFFERSON RN [address], [place], [address], [place] [facility] 11/16/2024 13:24:22 11/04/19 25 Allergy Immunotherapy Injections completed SHAUN PAIGE, RMA [address], [place], [address], [place] [facility] 11/03/2024 13:37:48 10/27/19 25 Allergy Immunotherapy Injections completed CISCO JEFFERSON RN [address], [place], [address], [place] [facility] 10/26/2024 13:20:55 10/21/19 25 Allergy Immunotherapy Injections completed CISCO JEFFERSON RN [address], [place], [address], [place] [facility] 10/20/2024 13:08:59 10/15/19 25 Allergy Immunotherapy Injections completed SHAUN PAIGE RMA [address], [address], [place] [facility] 10/14/2024 14:05:00 10/06/19 25 Allergy Immunotherapy Injections completed SHAUN PAIGE RMA [address], [place], [address], [place] [facility] 10/05/2024 14:06:18 09/30/19 25 Allergy Immunotherapy Injections completed SHAUN PAIGE RMA [address], [place], [address], [place] [facility] 09/29/2024 13:40:36 09/23/19 25 Allergy Immunotherapy Injections completed CISCO JEFFERSON RN [address], [place], [address], [place] [facility] 09/22/2024 09:59:56 09/16/19 25 Allergy Immunotherapy Injections completed SHAUN PAIGE RMA [address], [place], [address], [place] [facility] 09/15/2024 13:26:50 09/09/19 25 Allergy Immunotherapy Injections completed SHAUN KORZEC, RMA [address], [place], [address], [place] [facility] 09/08/2024 13:12:08 09/01/19 25 Allergy Immunotherapy Injections completed LULU STRONG RMA [address], [place], [address], [place] [facility] 08/31/2024 13:27:42 08/17/19 25 Allergy Immunotherapy Injections completed LULU STRONG RMA [address], [place], [address], [place] [facility] 08/16/2024 15:58:39 08/11/19 25 Allergy Immunotherapy Injections completed SHAUN PAIGE, RMA [address], [place], [address], [place] [facility] 08/10/2024 15:52:31 08/06/19 25 Allergy Immunotherapy Injections completed CISCO JEFFERSON RN [address], [place], [address], [place] [facility] 08/05/2024 13:41:22 07/28/19 25 Allergy Immunotherapy Injections completed LULU STRONG RMA [address], [place], [address], [place] [facility] 07/27/2024 13:36:44 07/21/19 25 Allergy Immunotherapy Injections completed SHAUN PAIGE RMA [address], [place], [address], [place] [facility] 07/20/2024 14:12:33 07/15/19 25 Allergy Immunotherapy Injections completed LULU STRONG RMA [address], [place], [address], [place] [facility] 07/14/2024 15:44:49 07/09/19 25 Allergy Immunotherapy Injections completed SHAUN SALCIDOC, RMA [address], [place], [address], [place] [facility] 07/08/2024 14:07:20 07/02/19 25 Allergy Immunotherapy Injections completed LULU STRONG RMA [address], [place], [address], [place] [facility] 07/01/2024 14:52:40 06/24/19 25 Allergy Immunotherapy Injections completed SHAUN LOLYC, RMA [address], [place], [address], [place] [facility] 06/23/2024 15:28:21 06/18/19 25 Allergy Immunotherapy Injections completed SHAUN SALCIDOC, RMA [address], [place], [address], [place] [facility] 06/17/2024 15:26:38 06/11/19 25 Allergy Immunotherapy Injections completed LULU STRONG RMA [address], [place], [address], [place] [facility] 06/10/2024 12:14:00 06/03/19 25 Allergy Immunotherapy Injections completed CISCO JEFFERSON RN [address] [place] [address], [address], [place] [facility] 06/03/2024 15:02:55 05/27/19 25 Allergy Immunotherapy Injections completed CISCO JEFFERSON RN [address], [place], [address], [place] [facility] 05/27/2024 13:18:22 05/19/19 25 Allergy Immunotherapy Injections completed SHAUN PAIGE, RMA [address], [place], [address], [place] [facility] 05/19/2024 15:31:32 05/06/19 25 Allergy Immunotherapy Injections completed SHAUN LOLYC, RMA [address], [place], [address], [place] [facility] 05/06/2024 12:10:48 04/28/19 25 Allergy Immunotherapy Injections completed SHAUN SALCIDOC, RMA [address], [place], [address], [place] [facility] 04/28/2024 11:59:53 04/21/19 25 Allergy Immunotherapy Injections completed SHAUN SALCIDOC, RMA [address], [place], [address], [place] [facility] 04/21/2024 11:49:44 04/12/19 25 Allergy Immunotherapy Injections completed SHAUN GRACIEZEC, RMA [address], [place], [address], [place] [facility] 04/12/2024 11:31:04 04/07/19 25 Allergy Immunotherapy Injections completed LULU STRONG, RMA [address], [place], [address], [place] [facility] 04/07/2024 14:28:20 03/24/20 24 Allergy Immunotherapy Injections completed CISCO JEFFERSON RN [address], [place], [address], [place] [facility] 03/24/2024 09:06:48 03/17/20 24 Allergy Immunotherapy Injections completed LULU STRONG RMA [address], [place], [address], [place] [facility] 03/17/2024 13:34:10 03/10/20 24 Allergy Immunotherapy Injections completed SHAUN SALCIDOC, RMA [address], [place], [address], [place] [facility] 03/10/2024 14:29:34 03/02/20 24 Allergy Immunotherapy Injections completed SHAUN SALCIDOC, RMA [address], [place], [address], [place] [facility] 03/02/2024 13:24:10 02/25/20 24 Allergy Immunotherapy Injections completed LULU STRONG RMA [address], [place], [address], [place] [facility] 02/25/2024 12:05:26 02/18/20 24 Allergy Immunotherapy Injections completed SHAUN BOWMANZEC, RMA [address], [place], [address], [place] [facility] 02/18/2024 11:40:09 02/11/20 24 Allergy Immunotherapy Injections completed MOUNA JAY [address], [place], [address], [place] [facility] 02/11/2024 11:17:12 02/04/20 24 Allergy Immunotherapy Injections completed CISCO JEFFERSON RN [address], [place], [address], [place] [facility] 02/04/2024 11:26:13 01/26/20 24 Allergy Immunotherapy Injections completed CISCO JEFFERSON RN [address], [place], [address], [place] [facility] 01/26/2024 11:31:41 01/21/20 24 Allergy Immunotherapy Injections completed SHAUN PAIGE RMArnav [address], [place], [address], [place] [facility] 01/21/2024 11:39:35 01/14/20 24 Allergy Immunotherapy Injections completed MOUNA JAY [address], [place], [address], [place] [facility] 01/14/2024 11:50:43 01/01/20 24 Allergy Immunotherapy Injections completed MOUNA JAY [address], [place], [address], [place] [facility] 01/01/2024 12:15:39 12/24/19 24 Allergy Immunotherapy Injections completed SHAUN PAIGE RMA [address], [place], [address], [place] [facility] 12/24/2023 14:47:22 12/17/19 24 Allergy Immunotherapy Injections completed LULU STRONG RMA [address], [place], [address], [place] [facility] 12/17/2023 11:38:32 12/04/19 24 Allergy Immunotherapy Injections completed SHAUN PAIGE RMA [address], [place], [address], [place] [facility] 12/04/2023 11:19:28 11/27/19 24 Allergy Immunotherapy Injections completed CISCO JEFFERSON RN [address], [place], [address], [place] [facility] 11/27/2023 10:18:58 11/19/19 24 Allergy Immunotherapy Injections completed LULU STRONG RMArnav [address], [place], [address], [place] [facility] 11/19/2023 13:45:27 11/12/19 24 Allergy Immunotherapy Injections completed SHAUN PAIGE RMA [address], [place], [address], [place] [facility] 11/12/2023 14:10:31 11/05/19 24 Allergy Immunotherapy Injections completed CISCO JEFFERSON RN [address], [place], [address], [place] [facility] 11/05/2023 12:04:52 10/29/19 24 Allergy Immunotherapy Injections completed SHAUN PAIGE RMA [address], [place], [address], [place] [facility] 10/29/2023 11:45:35 10/22/19 24 Allergy Immunotherapy Injections completed SHAUN PAIGE RMA [address], [place], [address], [place] [facility] 10/22/2023 13:08:24 10/15/19 24 Allergy Immunotherapy Injections completed CISCO JEFFERSON RN [address], [place], [address], [place] [facility] 10/15/2023 13:59:34 10/06/19 24 Allergy Immunotherapy Injections completed SHAUN PAIGE RMA [address], [place], [address], [place] [facility] 10/06/2023 15:11:13 09/30/19 24 Allergy Immunotherapy Injections completed DEVIN JAYA [address], [place], [address], [place] [facility] 09/30/2023 12:16:28 09/15/19 24 Allergy Immunotherapy Injections completed SHAUN SALCIDOZana, RMA [address] [facility], [place], [address], [facility] [place] 09/15/2023 14:12:59 09/08/19 24 Allergy Immunotherapy Injections completed LULU STRONG, A [address], [place], [address], [facility] 09/08/2023 13:41:53 09/01/19 24 Allergy Immunotherapy Injections completed CISCO JEFFERSON, RN [address] [facility], [place], [address], [facility] 09/01/2023 12:11:41 08/21/19 24 Allergy Immunotherapy Injections completed SHAUN LOLY, [facility] [address] [place], [address], [facility] 08/21/2023 15:15:30 Imaging Results None recorded. Procedure Notes None recorded. Medical Equipment None Reported. Allergies Allergen ID Allergen Name Allergen Category Reaction Reaction Severity Criticality Documentation Date Start Date Code Code System Note Provider Name and Address Organization Details Recorded Time 877376 hazelnut allergeni c extract food Not available Not available Not available 03/01/20252023 94605 3 RxNorm Not Available [place] - External Data Service - prod 13:12:45 [...] % lotion 08/11 completed Medicati on ID: [id number] B rand Name: Lotrison e Send Method: [...] as directed 2022 active Medicati on ID: 048572 B rand Name: azelasti ne Send Method: [...] 10 mg tablet active Medicati on ID: 433369 B rand Name: methimaz ole Send Method: [...] mg capsule 2018 active Medicati on ID: 966521 B rand Name: Zyrtec S end Method: E-Prescr ibed Sub s Allowed: subs OK Medic ationGen ericName : Zyrtec Not Available Not Available Not Available Spectravi te Women 18 mg-400 mcg tablet active Medicati on ID: 299809 B rand Name: Spectrav ite Women Se [...] ICD10 Code Diagnosis IMO Codes Diagnosis Note [id number] SHAUN PAIGE RMA Allergy [address] [facility] [place] [address] 12/23/2024 13:25:15 12/23/2024 13:26:32 Perennial allergic rhinitis [id number] J30.89 12785 LULUSHAY STRONG [facility] Allergy [address] [facility] [address] [place] [address] 01/05/2025 11:48:55 01/05/2025 11:49:56 Perennial allergic rhinitis 063962040 J30.89 86355 LULU STRONG [facility] Allergy [address] [facility] 100 [place] [address] 01/18/2025 14:03:08 01/18/2025 14:04:11 Perennial allergic rhinitis 100173938 J30.89 Health Concerns Section Related Observation LastModified by Organization Detai ls LastModified Time None Recorded Concern Status LastModified by Organization Details LastModified Time None Recorded Payers Encounter Date Sequence Insurance Name Policy Number Policy Coleman Covered Member ID Coleman Member ID Guarantor Name 01/18/2025 1 [employer] (MEDICAID REPLACEMENT - HMO) ROGER Peralta [id number] Lori Peralta OBGysharita Episode No OBEpisode recorded.
--- OUTSIDE RECORDS SUMMARY | 2025-03-08 16:19 | XMS_ITS | Continuity of Care Document ---
Author Organization [facility], Allergy Address [address] [place] [phone] Care Team Providers Care Appeals Board Referee Name Role Phone HAILEY LUNDY Primary Care Provider Assessment Encounter Date Assessment Date Assessment LastModified by Organization Details LastModified Time 12/23/2024 12/23/2024 Visit With: Marco A Blandon [place] Use of Antihistamine s: No If yes: Vial Test Change in medications: No If yes Increase in asthma symptoms No If yes, inhaler use: Reaction to last injections: No If yes: Allergy Symptoms: Other: Missed: Dose Aware of Vial Test Aware: Notes: [email or web address] Not available 12/23/2024 13:26:18 Plan of Treatment Reminders Order Date Submit Date Provider Last Modified By Organization Details Last Modified Time Details Appointments [facility]- Allergy f-up 6mon 2025 02:00P M SIMON [...] Organization Details Recorded Time Bleeding from nose [id number] Active 2018 Epistaxis; Note: Date Diagnosed: 08/31/2018 12:02 PM (R04.0) Not Available [facility] 4 02:39:42 Acute non-infec tive otitis externa 110226132 Active 2019 Unspecifie d acute noninfecti ve otitis externa, left ear; Note: Date Diagnosed: 04/08/2019 1:31 PM (H60.502) Not Available [facility] 02:39:44 Nasal congestio n 73172747 Active 2022 Nasal congestion ; Note: Date Diagnosed: 08/11/2022 3:23 PM (R09.81) Not Available [facility] 02:39:51 Allergic rhinitis 98235081 Active 2023 Allergic rhinitis: Due to other [...] Available [facility] 4 01:05:52 Perennial allergic rhinitis 645296472 Active 2023 MOUNA JAY 100 [facility],[place] [address], [place], [address] , [facility] - [facility] 5 14:03:22 Seasonal allergic rhinitis 827755859 Active 2023 SIMON HO MD 100 [facility],[place] [address], [place], [address] , [place] [facility] 11:00:01 Problem Notes None recorded. Procedures Surgical History Date Name Laterality Status Provider Name and Address Organization Details Recorded Time 03/01/20 25 Allergy Immunotherapy Injections completed CISCO JEFFERSON RN [address] [facility] [place] [address] [place] [address], [address], [place] [facility] 03/01/2025 13:12:51 02/17/20 25 Allergy Immunotherapy Injections completed MOUNA JAY [address] [facility] [facility] [place] [address] [place] [address], [address], [place] [facility] 02/16/2025 14:03:51 02/04/20 25 Allergy Immunotherapy Injections completed MOUNA JAY [address] [facility] [facility] [place] [address] [place] [address], [address], [place] [facility] 02/03/2025 12:09:05 01/19/20 25 Allergy Immunotherapy Injections completed MOUNA JAY 100 [facility],[place] [address] [place] [address], [address], [place] [facility] 01/18/2025 14:03:37 01/06/20 25 Allergy Immunotherapy Injections completed MOUNA JAY [address] [facility] [place] [address] [place] [address], [address], [place] [facility] 01/05/2025 11:49:34 12/24/19 25 Allergy Immunotherapy Injections completed Marco A Blandon 100 [facility],[address], [address], [place] [facility] 12/23/2024 13:26:10 12/09/19 25 Allergy Immunotherapy Injections completed SHAUN PAIGE RMA [address] [facility] [address],[place] [address] [place] [address], [address], [place] [facility] 12/08/2024 11:48:42 11/25/19 25 Allergy Immunotherapy Injections completed DEVIN JAYA [address] [facility] [address] [facility] [place] [address], [address], [place] [facility] 11/24/2024 14:02:17 11/17/19 25 Allergy Immunotherapy Injections completed CISCO JEFFERSON RN [address],[place] [address], [place], [address], [place] [facility] 11/16/2024 13:24:22 11/04/19 25 Allergy Immunotherapy Injections completed SHAUN PAIGE, RMA [address],[place] [address], [place], [address], [place] [facility] 11/03/2024 13:37:48 10/27/19 25 Allergy Immunotherapy Injections completed CISCO JEFFERSON RN [address] [address], [place], [address], [place] [facility] 10/26/2024 13:20:55 10/21/19 25 Allergy Immunotherapy Injections completed CISCO JEFFERSON RN [address],[place] [address], [place], [address], [place] [facility] 10/20/2024 13:08:59 10/15/19 25 Allergy Immunotherapy Injections completed SHAUN PAIGE RMA [address],[place] [address], [place], [address], [facility] - [facility] 10/14/2024 14:05:00 10/06/19 25 Allergy Immunotherapy Injections completed SHAUN PAIGE, RMA [address] [address], [place], [address], [facility] - [facility] 10/05/2024 14:06:18 09/30/19 25 Allergy Immunotherapy Injections completed SHAUN SALCIDOC RMA [address],[place] [address], [place], [address], [facility] - [facility] 09/29/2024 13:40:36 09/23/19 25 Allergy Immunotherapy Injections completed CISCO JEFFERSON RN [address],[place] [address], [place], [address], [place] [facility] 09/22/2024 09:59:56 09/16/19 25 Allergy Immunotherapy Injections completed SHAUN SALCIDOC, RMA [address] [address], [place], [address], [place] [facility] 09/15/2024 13:26:50 09/09/19 25 Allergy Immunotherapy Injections completed SHAUN PAIGE, RMA [address],[place] [address], [place], [address], [place] [facility] 09/08/2024 13:12:08 09/01/19 25 Allergy Immunotherapy Injections completed MAURO ASHRAF RMA [address],[place] [address], [place], [address], [place] [facility] 08/31/2024 13:27:42 08/17/19 25 Allergy Immunotherapy Injections completed MAURO ASHRAF RMA [address],[place] [address], [place], [address], [place] [facility] 08/16/2024 15:58:39 08/11/19 25 Allergy Immunotherapy Injections completed SHAUN PAIGE, RMA [address],[place] [address], [place], [address], [place] [facility] 08/10/2024 15:52:31 08/06/19 25 Allergy Immunotherapy Injections completed CISCO JEFFERSON RN [address],[place] [address], [place], [address], [place] [facility] 08/05/2024 13:41:22 07/28/19 25 Allergy Immunotherapy Injections completed DEVIN JAYA [address],[place], [address], [place] [facility] 07/27/2024 13:36:44 07/21/19 25 Allergy Immunotherapy Injections completed SHAUN PAIGE RMA [address],[place] [address], [place], [address], [place] [facility] 07/20/2024 14:12:33 07/15/19 25 Allergy Immunotherapy Injections completed MAURO ASHRAF RMA [address] [address], [place], [address], [place] [facility] 07/14/2024 15:44:49 07/09/19 25 Allergy Immunotherapy Injections completed SHAUN PAIGE, RMA [address],[place] [address], [place], [address], [place] [facility] 07/08/2024 14:07:20 07/02/19 25 Allergy Immunotherapy Injections completed MAURO ASHRAF RMA [address],[place] [address], [place], [address], [place] [facility] 07/01/2024 14:52:40 06/24/19 25 Allergy Immunotherapy Injections completed SHAUN LOLYC, RMA [address],[place] [address], [place], [address], [place] [facility] 06/23/2024 15:28:21 06/18/19 25 Allergy Immunotherapy Injections completed SHAUN LOLYC, RMA [address],[place] [address], [place], [address], [place] [facility] 06/17/2024 15:26:38 06/11/19 25 Allergy Immunotherapy Injections completed MAURO ASHRAF RMA [address],[place] [address], [place], [address], [place] [facility] 06/10/2024 12:14:00 06/03/19 25 Allergy Immunotherapy Injections completed CISCO JEFFERSON RN [address],[place] [address] [place] [address], [address], [place] [facility] 06/03/2024 15:02:55 05/27/19 25 Allergy Immunotherapy Injections completed CISCO JEFFERSON RN [address],[place] [address], [address], [place] [facility] 05/27/2024 13:18:22 05/19/19 25 Allergy Immunotherapy Injections completed SHAUN PAIGE, RMA [address],[place] [address], [place], [address], [place] [facility] 05/19/2024 15:31:32 05/06/19 25 Allergy Immunotherapy Injections completed SHAUN GRACIEZEC, RMA [address],[place] [address], [place], [address], [place] [facility] 05/06/2024 12:10:48 04/28/19 25 Allergy Immunotherapy Injections completed SHAUN KORZEC, RMA [address],[place] [address], [place], [address], [place] [facility] 04/28/2024 11:59:53 04/21/19 25 Allergy Immunotherapy Injections completed SHAUN SALCIDOC, RMA [address] [address], [place], [address], [place] [facility] 04/21/2024 11:49:44 04/12/19 25 Allergy Immunotherapy Injections completed SHAUN GRACIEZEC, RMA [address] [address], [place], [address], [place] [facility] 04/12/2024 11:31:04 04/07/19 25 Allergy Immunotherapy Injections completed MAURO ASHRAF, RMA [address] [address], [place], [address], [place] [facility] 04/07/2024 14:28:20 03/24/20 24 Allergy Immunotherapy Injections completed CISCO JEFFERSON RN [address],[place] [address], [place], [address], [place] [facility] 03/24/2024 09:06:48 03/17/20 24 Allergy Immunotherapy Injections completed MAURO ASHRAF RMA [address] [address], [place], [address], [place] [facility] 03/17/2024 13:34:10 03/10/20 24 Allergy Immunotherapy Injections completed SHAUN PAIGE, RMA [address] [address], [place], [address], [place] [facility] 03/10/2024 14:29:34 03/02/20 24 Allergy Immunotherapy Injections completed SHAUN PAIGE, RMA [address] [address], [place], [address], [place] [facility] 03/02/2024 13:24:10 02/25/20 24 Allergy Immunotherapy Injections completed MAURO ASHRAF RMA [address],[place] [address], [place], [address], [place] [facility] 02/25/2024 12:05:26 02/18/20 24 Allergy Immunotherapy Injections completed SHAUN SALCIDOC, RMA [address] [address], [place], [address], [place] [facility] 02/18/2024 11:40:09 02/11/20 24 Allergy Immunotherapy Injections completed MOUNA JAY [address] [address], [place], [address], [place] [facility] 02/11/2024 11:17:12 02/04/20 24 Allergy Immunotherapy Injections completed CISCO JEFFERSON RN [address],[place] [address], [place], [address], [place] [facility] 02/04/2024 11:26:13 01/26/20 24 Allergy Immunotherapy Injections completed CISCO JEFFERSON RN [address] [address], [place], [address], [place] [facility] 01/26/2024 11:31:41 01/21/20 24 Allergy Immunotherapy Injections completed MOUNA WATKINS [address],[place] [address], [place], [address], [place] [facility] 01/21/2024 11:39:35 01/14/20 24 Allergy Immunotherapy Injections completed MOUNA JAY [address],[place] [address], [place], [address], [place] [facility] 01/14/2024 11:50:43 01/01/20 24 Allergy Immunotherapy Injections completed MOUNA JAY [address],[place] [address], [place], [address], [place] [facility] 01/01/2024 12:15:39 12/24/19 24 Allergy Immunotherapy Injections completed SHAUN PAIGE RMArnav [address],[place] [address], [place], [address], [place] [facility] 12/24/2023 14:47:22 12/17/19 24 Allergy Immunotherapy Injections completed MOUNA JAY [address],[place] [address], [place], [address], [place] [facility] 12/17/2023 11:38:32 12/04/19 24 Allergy Immunotherapy Injections completed SHAUN PAIGE RMA [address],[place] [address], [place], [address], [place] [facility] 12/04/2023 11:19:28 11/27/19 24 Allergy Immunotherapy Injections completed CISCO JEFFERSON RN [address],[place] [address], [place], [address], [place] [facility] 11/27/2023 10:18:58 11/19/19 24 Allergy Immunotherapy Injections completed MOUNA JAY [address],[place] [address], [place], [address], [place] [facility] 11/19/2023 13:45:27 11/12/19 24 Allergy Immunotherapy Injections completed SHAUN PAIGE RMA [address],[place] [address], [place], [address], [place] [facility] 11/12/2023 14:10:31 11/05/19 24 Allergy Immunotherapy Injections completed CISCO JEFFERSON RN [address] [facility] [address],[place] [address] [place] [address], [address], [place] [facility] 11/05/2023 12:04:52 10/29/19 24 Allergy Immunotherapy Injections completed SHAUN PAIGE RMA [address],[place] [address] [place] [address], [address], [place] [facility] 10/29/2023 11:45:35 10/22/19 24 Allergy Immunotherapy Injections completed SHAUN PAIGE RMA [address],[place] [address], [place], [address], [place] [facility] 10/22/2023 13:08:24 10/15/19 24 Allergy Immunotherapy Injections completed CISCO JEFFERSON RN [address] [facility] [address],[place] [address], [place], [address], [place] [facility] 10/15/2023 13:59:34 10/06/19 24 Allergy Immunotherapy Injections completed SHAUN PAIGE RMA [address],[place] [address], [place], [address], [place] [facility] 10/06/2023 15:11:13 09/30/19 24 Allergy Immunotherapy Injections completed MOUNA JAY [address],[place] [address], [place], [address], [place] [facility] 09/30/2023 12:16:28 09/15/19 24 Allergy Immunotherapy Injections completed SHAUN SALCIDOZana, RMA [address] [place] [address], [place], [address], [facility] - [facility] 09/15/2023 14:12:59 09/08/19 24 Allergy Immunotherapy Injections completed MAURO ASHRAF, A [address] [facility] [address] [facility] [place] [address], [place], [address], [facility] - [facility] 09/08/2023 13:41:53 09/01/19 24 Allergy Immunotherapy Injections completed CISCO JEFFERSON, RN [address] [facility] [address],[place] [address], [place], [address], [facility] - [facility] 09/01/2023 12:11:41 08/21/19 24 Allergy Immunotherapy Injections completed SHAUN SALCIDO, [facility] [address] [facility] [address] [facility] [facility] [place],[facility] 100, [place], [address], [facility] - [facility] 08/21/2023 15:15:30 Imaging Results None recorded. Procedure Notes None recorded. Medical Equipment None Reported. Allergies Allergen ID Allergen Name Allergen Category Reaction Reaction Severity Criticality Documentation Date Start Date Code Code System Note Provider Name and Address Organization Details Recorded Time 599515 hazelnut allergeni c extract food Not available Not available Not available 03/01/20252023 09558 3 RxNorm Not Available [place] - External Data Service - prod 13:12:45 [...] % lotion 08/11 completed Medicati on ID: [id number] B rand Name: Dannyrisjas e Send Method: [...] as directed 2022 active Medicati on ID: 132960 B rand Name: azelasti ne Send Method: [...] 10 mg tablet active Medicati on ID: [id number] B rand Name: methimaz ole Send Method: [...] mg capsule 2018 active Medicati on ID: 702129 B rand Name: Zyrtec S end Method: E-Prescr ibed Sub s Allowed: subs OK Medic ationGen ericName : Zyrtec Not Available Not Available Not Available Spectravi te Women 18 mg-400 mcg tablet active Medicati on ID: [id number] B rand Name: Spectrav ite Women Se [...] ICD10 Code Diagnosis IMO Codes Diagnosis Note 09130 MAURO PASCALE [facility] Allergy 100 [facility] 100 [place] [address] 11/24/2024 14:01:35 11/24/2024 14:03:42 Perennial allergic rhinitis 402726883 J30.89 [id number] SHAUN SALCIDO [facility] Allergy 100 [facility] 100 [place] [address] 12/08/2024 11:47:54 12/08/2024 11:49:09 Perennial allergic rhinitis 575295177 J30.89 [id number] SHAUN SALCIDO, [facility] Allergy 100 [facility] 100 [place] [address] 12/23/2024 13:25:15 12/23/2024 13:26:32 Perennial allergic rhinitis 578297388 J30.89 Health Concerns Section Related Observation LastModified by Organization Detai ls LastModified Time None Recorded Concern Status LastModified by Organization Details LastModified Time None Recorded Payers Encounter Date Sequence Insurance Name Policy Number Policy Coleman Covered Member ID Coleman Member ID Guarantor Name 12/23/2024 1 [employer] (MEDICAID REPLACEMENT - HMO) ROGER Peralta [id number] Lori Peralta OBGysharita Episode No OBEpisode recorded.
--- OUTSIDE RECORDS SUMMARY | 2025-03-08 16:19 | XMS_ITS | Continuity of Care Document ---
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 Name Role Phone HAILEY LUNDY Primary Care Provider Assessment Encounter Date Assessment Date Assessment LastModified by Organization Details LastModified Time 02/16/2025 02/16/2025 Visit With: Lulu Strong Use of Antihistamine s: No If yes: Vial Test Change in medications: No If yes Increase in asthma symptoms If yes, inhaler use: Reaction to last injections: No If yes: Allergy Symptoms: Other: Missed: 1 week Dose Decreased Aware of Vial Test Aware: Notes:asthma flare up on neck [email or web address] Not available 02/16/2025 14:04:27 Plan of Treatment Reminders Order Date Submit Date Provider Last Modified By Organization Details Last Modified Time Details Appointments [facility]- Allergy f-up 6mon 2025 02:00P M SIMON [...] Organization Details Recorded Time Bleeding from nose [id number] Active 2018 Epistaxis; Note: Date Diagnosed: 08/31/2018 12:02 PM (R04.0) Not Available [facility] 4 02:39:42 Acute non-infec tive otitis externa 614454800 Active 2019 Unspecifie d acute noninfecti ve otitis externa, left ear; Note: Date Diagnosed: 04/08/2019 1:31 PM (H60.502) Not Available [facility] 02:39:44 Nasal congestio n [id number] Active 2022 Nasal congestion ; Note: Date Diagnosed: 08/11/2022 3:23 PM (R09.81) Not Available [facility] 02:39:51 Allergic rhinitis 16568975 Active 2023 Allergic rhinitis: Due to other [...] Available [facility] 4 01:05:52 Perennial allergic rhinitis 305337618 Active 2023 MOUNA JAY [address] [facility],[place] [address], [place], [address] , [place] [facility] 5 14:03:22 Seasonal allergic rhinitis 501177081 Active 2023 SIMON HO MD [address] [facility],[place] [address], [place], [address] , [place] [facility] 11:00:01 Problem Notes None recorded. Procedures Surgical History Date Name Laterality Status Provider Name and Address Organization Details Recorded Time 03/01/20 25 Allergy Immunotherapy Injections completed CISCO JEFFERSON RN [address],[place] [address], [place], [address], [place] [facility] 03/01/2025 13:12:51 02/17/20 25 Allergy Immunotherapy Injections completed MOUNA JAY [address] [facility] [address], [place], [address], [place] [facility] 02/16/2025 14:03:51 02/04/20 25 Allergy Immunotherapy Injections completed MOUNA JAY [address] [facility] [address],[place] [address] [place] [address], [address], [place] [facility] 02/03/2025 12:09:05 01/19/20 25 Allergy Immunotherapy Injections completed MOUNA JAY [address] [facility],[place] [address] [place] [address], [address], [place] [facility] 01/18/2025 14:03:37 01/06/20 25 Allergy Immunotherapy Injections completed MOUNA JAY [address] [facility],[place] [address] [place] [address], [address], [place] [facility] 01/05/2025 11:49:34 12/24/19 25 Allergy Immunotherapy Injections completed Marco A Blandon [address] [facility] [address],[place] [address] [place] [address], [address], [place] [facility] 12/23/2024 13:26:10 12/09/19 25 Allergy Immunotherapy Injections completed SHAUN PAIGE RMA [address] [facility] [address] [address], [place], [address], [place] [facility] 12/08/2024 11:48:42 11/25/19 25 Allergy Immunotherapy Injections completed MOUNA JAY [address] [facility] [address] [address], [place], [address], [place] [facility] 11/24/2024 14:02:17 11/17/19 25 Allergy Immunotherapy Injections completed CISCO JEFFERSON RN [address], [place], [address], [place] [facility] 11/16/2024 13:24:22 11/04/19 25 Allergy Immunotherapy Injections completed SHAUN PAIGE, RMA [address] [address], [place], [address], [place] [facility] 11/03/2024 13:37:48 10/27/19 25 Allergy Immunotherapy Injections completed CISCO JEFFERSON RN [address], [place], [address], [place] [facility] 10/26/2024 13:20:55 10/21/19 25 Allergy Immunotherapy Injections completed CISCO JEFFERSON RN [address],[place] [address], [place], [address], [place] [facility] 10/20/2024 13:08:59 10/15/19 25 Allergy Immunotherapy Injections completed SHAUN PAIGE, RMA [address], [place], [address], [place] [facility] 10/14/2024 14:05:00 10/06/19 25 Allergy Immunotherapy Injections completed SHAUN PAIGE, RMA [address],[place] [address], [place], [address], [place] [facility] 10/05/2024 14:06:18 09/30/19 25 Allergy Immunotherapy Injections completed SHAUN PAIGE RMA [address],[place] [address], [place], [address], [place] [facility] 09/29/2024 13:40:36 09/23/19 25 Allergy Immunotherapy Injections completed CISCO JEFFERSON RN [address], [place], [address], [place] [facility] 09/22/2024 09:59:56 09/16/19 25 Allergy Immunotherapy Injections completed SHAUN PAIGE, RMA [address],[place] [address], [place], [address], [place] [facility] 09/15/2024 13:26:50 09/09/19 25 Allergy Immunotherapy Injections completed SHAUN SALCIDOC, RMA [address] [address], [place], [address], [place] [facility] 09/08/2024 13:12:08 09/01/19 25 Allergy Immunotherapy Injections completed LULU STRONG RMA [address], [place], [address], [place] [facility] 08/31/2024 13:27:42 08/17/19 25 Allergy Immunotherapy Injections completed ULLU STRONG RMA [address], [place], [address], [place] [facility] 08/16/2024 15:58:39 08/11/19 25 Allergy Immunotherapy Injections completed SHAUN PAIGE, RMA [address], [place], [address], [place] [facility] 08/10/2024 15:52:31 08/06/19 25 Allergy Immunotherapy Injections completed CISCO JEFFERSON RN [address], [place], [address], [place] [facility] 08/05/2024 13:41:22 07/28/19 25 Allergy Immunotherapy Injections completed DEVIN JAYA [address], [place], [address], [place] [facility] 07/27/2024 13:36:44 07/21/19 25 Allergy Immunotherapy Injections completed SHAUN PAIGE RMA [address] [address], [place], [address], [place] [facility] 07/20/2024 14:12:33 07/15/19 25 Allergy Immunotherapy Injections completed LULU STRONG RMA [address], [place], [address], [place] [facility] 07/14/2024 15:44:49 07/09/19 25 Allergy Immunotherapy Injections completed SHAUN PAIGE, RMA [address], [place], [address], [place] [facility] 07/08/2024 14:07:20 07/02/19 25 Allergy Immunotherapy Injections completed LULU STRONG RMA [address], [place], [address], [place] [facility] 07/01/2024 14:52:40 06/24/19 25 Allergy Immunotherapy Injections completed SHAUN LOLYC, RMA [address], [place], [address], [place] [facility] 06/23/2024 15:28:21 06/18/19 25 Allergy Immunotherapy Injections completed SHAUN SALCIDOC, RMA [address], [place], [address], [place] [facility] 06/17/2024 15:26:38 06/11/19 25 Allergy Immunotherapy Injections completed LULU STRONG RMA [address] [address], [place], [address], [place] [facility] 06/10/2024 12:14:00 06/03/19 25 Allergy Immunotherapy Injections completed CISCO JEFFERSON RN [address],[place] [facility], [place], [address], [place] [facility] 06/03/2024 15:02:55 05/27/19 25 Allergy Immunotherapy Injections completed CISCO JEFFERSON RN [address],[place] [address] [place] [address], [address], [place] [facility] 05/27/2024 13:18:22 05/19/19 25 Allergy Immunotherapy Injections completed SHAUN PAIGE, RMA [address],[place] [address], [address], [place] [facility] 05/19/2024 15:31:32 05/06/19 25 Allergy Immunotherapy Injections completed SHAUN SALCIDOC, RMA [address],[place] [address], [place], [address], [place] [facility] 05/06/2024 12:10:48 04/28/19 25 Allergy Immunotherapy Injections completed SHAUN SALCIDOC, RMA [address],[place] [address], [place], [address], [place] [facility] 04/28/2024 11:59:53 04/21/19 25 Allergy Immunotherapy Injections completed SHAUN SALCIDOC, RMA [address], [place], [address], [place] [facility] 04/21/2024 11:49:44 04/12/19 25 Allergy Immunotherapy Injections completed SHAUN GRACIEZEC, RMA [address], [place], [address], [place] [facility] 04/12/2024 11:31:04 04/07/19 25 Allergy Immunotherapy Injections completed LULU STRONG, RMA [address], [place], [address], [place] [facility] 04/07/2024 14:28:20 03/24/20 24 Allergy Immunotherapy Injections completed CISCO JEFFERSON RN [address], [place], [address], [place] [facility] 03/24/2024 09:06:48 03/17/20 24 Allergy Immunotherapy Injections completed LULU STRONG RMA [address], [place], [address], [place] [facility] 03/17/2024 13:34:10 03/10/20 24 Allergy Immunotherapy Injections completed SHAUN PAIGE, RMA [address], [place], [address], [place] [facility] 03/10/2024 14:29:34 03/02/20 24 Allergy Immunotherapy Injections completed SHAUN SALCIDOC, RMA [address], [place], [address], [place] [facility] 03/02/2024 13:24:10 02/25/20 24 Allergy Immunotherapy Injections completed LULU STRONG RMA [address], [place], [address], [place] [facility] 02/25/2024 12:05:26 02/18/20 24 Allergy Immunotherapy Injections completed SHAUN SALCIDOC, RMA [address], [place], [address], [place] [facility] 02/18/2024 11:40:09 02/11/20 24 Allergy Immunotherapy Injections completed MOUNA JAY [address], [place], [address], [place] [facility] 02/11/2024 11:17:12 02/04/20 24 Allergy Immunotherapy Injections completed CISCO JEFFERSON RN [address], [place], [address], [place] [facility] 02/04/2024 11:26:13 01/26/20 24 Allergy Immunotherapy Injections completed CISCO JEFFERSON RN [address], [place], [address], [place] [facility] 01/26/2024 11:31:41 01/21/20 24 Allergy Immunotherapy Injections completed SHAUN PAIGE RMArnav [address], [place], [address], [place] [facility] 01/21/2024 11:39:35 01/14/20 24 Allergy Immunotherapy Injections completed MOUNA JAY [address], [place], [address], [place] [facility] 01/14/2024 11:50:43 01/01/20 24 Allergy Immunotherapy Injections completed MOUNA JAY [address], [place], [address], [place] [facility] 01/01/2024 12:15:39 12/24/19 24 Allergy Immunotherapy Injections completed SHAUN PAIGE RMArnav [address], [place], [address], [place] [facility] 12/24/2023 14:47:22 12/17/19 24 Allergy Immunotherapy Injections completed DEVIN JAYA [address],[place] [address], [place], [address], [place] [facility] 12/17/2023 11:38:32 12/04/19 24 Allergy Immunotherapy Injections completed SHAUN PAIGE RMA [address],[place] [address], [place], [address], [place] [facility] 12/04/2023 11:19:28 11/27/19 24 Allergy Immunotherapy Injections completed CISCO JEFFERSON RN [address], [place], [address], [place] [facility] 11/27/2023 10:18:58 11/19/19 24 Allergy Immunotherapy Injections completed LULU STRONG RMArnav [address] [address], [place], [address], [place] [facility] 11/19/2023 13:45:27 11/12/19 24 Allergy Immunotherapy Injections completed SHAUN PAIGE RMA [address], [place], [address], [place] [facility] 11/12/2023 14:10:31 11/05/19 24 Allergy Immunotherapy Injections completed CISCO JEFFERSON RN [address], [place], [address], [place] [facility] 11/05/2023 12:04:52 10/29/19 24 Allergy Immunotherapy Injections completed SHAUN PAIGE RMA [address], [place], [address], [place] [facility] 10/29/2023 11:45:35 10/22/19 24 Allergy Immunotherapy Injections completed SHAUN PAIGE RMA [address], [place], [address], [place] [facility] 10/22/2023 13:08:24 10/15/19 24 Allergy Immunotherapy Injections completed CISCO JEFFERSON RN [address], [place], [address], [place] [facility] 10/15/2023 13:59:34 10/06/19 24 Allergy Immunotherapy Injections completed SHAUN PAIGE RMA [address],[place] [address], [place], [address], [place] [facility] 10/06/2023 15:11:13 09/30/19 24 Allergy Immunotherapy Injections completed MOUNA JAY [address], [place], [address], [place] [facility] 09/30/2023 12:16:28 09/15/19 24 Allergy Immunotherapy Injections completed SHAUN BOWMANPERLA, [facility] [address] [facility] [address],[place] [address] [place] [address], [address], [facility] 09/15/2023 14:12:59 09/08/19 24 Allergy Immunotherapy Injections completed LULU STRONG, [facility] [address] [facility] [place],[address], [address], [facility] 09/08/2023 13:41:53 09/01/19 24 Allergy Immunotherapy Injections completed CISCO JEFFERSON RN [address] [facility] [place],[address], [address], [facility] 09/01/2023 12:11:41 08/21/19 24 Allergy Immunotherapy Injections completed SHAUN LOLY, [facility] [address] [facility] [place],[address], [address], [facility] 08/21/2023 15:15:30 Imaging Results None recorded. Procedure Notes None recorded. Medical Equipment None Reported. Allergies Allergen ID Allergen Name Allergen Category Reaction Reaction Severity Criticality Documentation Date Start Date Code Code System Note Provider Name and Address Organization Details Recorded Time 176883 hazelnut allergeni c extract food Not available Not available Not available 03/01/20252023 56775 3 RxNorm Not Available [facility] - External Data Service - prod 13:12:45 [...] % lotion 08/11 completed Medicati on ID: [id number] B rand Name: Dannyrisjas e Send Method: [...] as directed 2022 active Medicati on ID: [id number] B rand Name: azelasti ne Send Method: [...] 10 mg tablet active Medicati on ID: [id number] B rand Name: methimaezequiel ole Send Method: E-Prescr ibed Sub s [...] mg capsule 2018 active Medicati on ID: [id number] B rand Name: Zyrtec S end Method: E-Prescr ibed Sub s Allowed: subs OK Medic ationGen ericName : Zyrtec Not Available Not Available Not Available Spectravi te Women 18 mg-400 mcg tablet active Medicati on ID: [id number] B rand Name: Spectrav ite Women Se [...] ICD10 Code Diagnosis IMO Codes Diagnosis Note [id number] LULUMOUNA HANNON Allergy [address] [facility] 100 [place] [address] 01/18/2025 14:03:08 01/18/2025 14:04:11 Perennial allergic rhinitis [id number] J30.89 62691 LULU STRONG [facility] Allergy 100 [facility] 100 [place] [address] 02/03/2025 12:08:27 02/03/2025 12:09:33 Perennial allergic rhinitis [id number] J30.89 82748 LULU STRONG [facility] Allergy 100 [facility] [address] [place] [address] 02/16/2025 14:03:12 02/16/2025 14:04:43 Perennial allergic rhinitis [id number] J30.89 Health Concerns Section Related Observation LastModified by Organization Detai ls LastModified Time None Recorded Concern Status LastModified by Organization Details LastModified Time None Recorded Payers Encounter Date Sequence Insurance Name Policy Number Policy Coleman Covered Member ID Coleman Member ID Guarantor Name 02/16/2025 1 [employer] (MEDICAID REPLACEMENT - HMO) ROGER Peralta [id number] Lori Peralta OBGyn Episode No OBEpisode recorded.
--- OUTSIDE RECORDS SUMMARY | 2025-03-08 16:19 | XMS_ITS | Continuity of Care Document ---
Author Organization [place] - [facility], Allergy Address [address] [place] [address] Care Team Providers Care Director Of Resource Development Name Role Phone HAILEY LUNDY Primary Care Provider Assessment Encounter Date Assessment Date Assessment LastModified by Organization Details LastModified Time 12/08/2024 12/08/2024 Visit With: MOUNA Zhang Use of Antihistamine s: No If yes: Vial Test Change in medications: No If yes Increase in asthma symptoms If yes, inhaler use: Reaction to last injections: No If yes: Allergy Symptoms: Other: Missed: 1 week Dose Repeated Aware of Vial Test Aware: Notes: [email or web address] Not available 12/08/2024 11:48:50 Plan of Treatment Reminders Order Date Submit Date Provider Last Modified By Organization Details Last Modified Time Details Appointments [facility]- Allergy f-up 6mon 2025 02:00P M [...] Organization Details Recorded Time Bleeding from nose [id number] Active 2018 Epistaxis; Note: Date Diagnosed: 08/31/2018 12:02 PM (R04.0) Not Available [facility] 4 02:39:42 Acute non-infec tive otitis externa 571100301 Active 2019 Unspecifie d acute noninfecti ve otitis externa, left ear; Note: Date Diagnosed: 04/08/2019 1:31 PM (H60.502) Not Available [facility] 02:39:44 Nasal congestio n [id number] Active 2022 Nasal congestion ; Note: Date Diagnosed: 08/11/2022 3:23 PM (R09.81) Not Available [facility] 02:39:51 Allergic rhinitis 34586376 Active 2023 Allergic rhinitis: Due to other [...] ; Start Date : 05/05/2019 Not Available [facility] 4 01:05:52 Perennial allergic rhinitis 911796472 Active 2023 MOUNA JAY [address] [facility],[place] [address], [place], [address] , [facility] - [facility] 5 14:03:22 Seasonal allergic rhinitis [id number] Active 2023 SIMON HO MD [address] [facility],[place] [address], [place], [address] , [place] [facility] 11:00:01 Problem Notes None recorded. Procedures Surgical History Date Name Laterality Status Provider Name and Address Organization Details Recorded Time 03/01/20 25 Allergy Immunotherapy Injections completed CISCO JEFFERSON RN [address], [place], [address], [place] [facility] 03/01/2025 13:12:51 02/17/20 25 Allergy Immunotherapy Injections completed MOUNA JAY [address] [facility] [address], [place], [address], [place] [facility] 02/16/2025 14:03:51 02/04/20 25 Allergy Immunotherapy Injections completed MOUNA JAY [address] [facility] [address], [place], [address], [place] [facility] 02/03/2025 12:09:05 01/19/20 25 Allergy Immunotherapy Injections completed MOUNA JAY [address] [facility] [address] [place] [address], [address], [place] [facility] 01/18/2025 14:03:37 01/06/20 25 Allergy Immunotherapy Injections completed MOUNA JAY [address] [facility] [address], [place], [address], [place] [facility] 01/05/2025 11:49:34 12/24/19 25 Allergy Immunotherapy Injections completed Marco A Blandon [address] [place] [address], [address], [place] [facility] 12/23/2024 13:26:10 12/09/19 25 Allergy Immunotherapy Injections completed SHAUN PAIGE, RMA [address], [place], [address], [place] [facility] 12/08/2024 11:48:42 11/25/19 25 Allergy Immunotherapy Injections completed DEVIN JAYA [address] [facility] [address], [place], [address], [place] [facility] 11/24/2024 14:02:17 11/17/19 25 Allergy Immunotherapy Injections completed CISCO JEFFERSON RN [address], [place], [address], [place] [facility] 11/16/2024 13:24:22 11/04/19 25 Allergy Immunotherapy Injections completed SHAUN PAIGE, RMA [address], [place], [address], [place] [facility] 11/03/2024 13:37:48 10/27/19 25 Allergy Immunotherapy Injections completed CISCO JEFFERSON RN [address], [place], [address], [place] [facility] 10/26/2024 13:20:55 10/21/19 25 Allergy Immunotherapy Injections completed CISCO JEFFERSON RN [address], [place], [address], [place] [facility] 10/20/2024 13:08:59 10/15/19 25 Allergy Immunotherapy Injections completed SHAUN PAIGE RMA [address], [place], [address], [place] [facility] 10/14/2024 14:05:00 10/06/19 25 Allergy Immunotherapy Injections completed SHAUN PAIGE RMA [address], [place], [address], [place] [facility] 10/05/2024 14:06:18 09/30/19 25 Allergy Immunotherapy Injections completed SHAUN PAIGE RMA [address], [place], [address], [place] [facility] 09/29/2024 13:40:36 09/23/19 25 Allergy Immunotherapy Injections completed CISCO JEFFERSON RN [address], [place], [address], [place] [facility] 09/22/2024 09:59:56 09/16/19 25 Allergy Immunotherapy Injections completed SHAUN PAIGE RMA [address], [place], [address], [place] [facility] 09/15/2024 13:26:50 09/09/19 25 Allergy Immunotherapy Injections completed SHAUN KORZEC, RMA [address], [place], [address], [place] [facility] 09/08/2024 13:12:08 09/01/19 25 Allergy Immunotherapy Injections completed MAURO ASHRAF RMA [address], [place], [address], [place] [facility] 08/31/2024 13:27:42 08/17/19 25 Allergy Immunotherapy Injections completed MAURO ASHRAF RMA [address], [place], [address], [place] [facility] 08/16/2024 15:58:39 08/11/19 25 Allergy Immunotherapy Injections completed SHAUN PAIGE, RMA [address], [place], [address], [place] [facility] 08/10/2024 15:52:31 08/06/19 25 Allergy Immunotherapy Injections completed CISCO JEFFERSON RN [address], [place], [address], [place] [facility] 08/05/2024 13:41:22 07/28/19 25 Allergy Immunotherapy Injections completed MAURO ASHRAF RMA [address], [place], [address], [place] [facility] 07/27/2024 13:36:44 07/21/19 25 Allergy Immunotherapy Injections completed SHAUN PAIGE RMA [address], [place], [address], [place] [facility] 07/20/2024 14:12:33 07/15/19 25 Allergy Immunotherapy Injections completed MAURO ASHRAF RMA [address], [place], [address], [place] [facility] 07/14/2024 15:44:49 07/09/19 25 Allergy Immunotherapy Injections completed SHAUN SALCIDOC, RMA [address], [place], [address], [place] [facility] 07/08/2024 14:07:20 07/02/19 25 Allergy Immunotherapy Injections completed MAURO ASHRAF RMA [address], [place], [address], [place] [facility] 07/01/2024 14:52:40 06/24/19 25 Allergy Immunotherapy Injections completed SHAUN LOLYC, RMA [address], [place], [address], [place] [facility] 06/23/2024 15:28:21 06/18/19 25 Allergy Immunotherapy Injections completed SHAUN SALCIDOC, RMA [address], [place], [address], [place] [facility] 06/17/2024 15:26:38 06/11/19 25 Allergy Immunotherapy Injections completed MAURO ASHRAF RMA [address], [place], [address], [place] [facility] 06/10/2024 12:14:00 06/03/19 25 Allergy Immunotherapy Injections completed CISCO JEFFERSON RN [address] [place] [address], [address], [place] [facility] 06/03/2024 15:02:55 05/27/19 25 Allergy Immunotherapy Injections completed CISCO JEFFERSON RN [address], [place], [address], [place] [facility] 05/27/2024 13:18:22 05/19/19 25 Allergy Immunotherapy Injections completed SHAUN PAIGE, RMA [address], [place], [address], [place] [facility] 05/19/2024 15:31:32 05/06/19 25 Allergy Immunotherapy Injections completed SHAUN LOLYC, RMA [address], [place], [address], [place] [facility] 05/06/2024 12:10:48 04/28/19 25 Allergy Immunotherapy Injections completed SHAUN SALCIDOC, RMA [address], [place], [address], [place] [facility] 04/28/2024 11:59:53 04/21/19 25 Allergy Immunotherapy Injections completed SHAUN SALCIDOC, RMA [address], [place], [address], [place] [facility] 04/21/2024 11:49:44 04/12/19 25 Allergy Immunotherapy Injections completed SHAUN GRACIEZEC, RMA [address], [place], [address], [place] [facility] 04/12/2024 11:31:04 04/07/19 25 Allergy Immunotherapy Injections completed MAURO ASHRAF, RMA [address], [place], [address], [place] [facility] 04/07/2024 14:28:20 03/24/20 24 Allergy Immunotherapy Injections completed CISCO JEFFERSON RN [address], [place], [address], [place] [facility] 03/24/2024 09:06:48 03/17/20 24 Allergy Immunotherapy Injections completed MAURO ASHRAF RMA [address], [place], [address], [place] [facility] 03/17/2024 13:34:10 03/10/20 24 Allergy Immunotherapy Injections completed SHAUN SALCIDOC, RMA [address], [place], [address], [place] [facility] 03/10/2024 14:29:34 03/02/20 24 Allergy Immunotherapy Injections completed SHAUN SALCIDOC, RMA [address], [place], [address], [place] [facility] 03/02/2024 13:24:10 02/25/20 24 Allergy Immunotherapy Injections completed MAURO ASHRAF RMA [address], [place], [address], [place] [facility] 02/25/2024 12:05:26 02/18/20 24 Allergy Immunotherapy Injections completed SHAUN BOWMANZEC, RMA [address], [place], [address], [place] [facility] 02/18/2024 11:40:09 02/11/20 24 Allergy Immunotherapy Injections completed MUONA JAY [address], [place], [address], [place] [facility] 02/11/2024 11:17:12 02/04/20 24 Allergy Immunotherapy Injections completed CISCO JEFFERSON RN [address], [place], [address], [place] [facility] 02/04/2024 11:26:13 01/26/20 24 Allergy Immunotherapy Injections completed CISCO JEFFERSON RN [address], [place], [address], [place] [facility] 01/26/2024 11:31:41 01/21/20 24 Allergy Immunotherapy Injections completed SHAUN PAIGE RMArnav [address], [place], [address], [place] [facility] 01/21/2024 11:39:35 01/14/20 24 Allergy Immunotherapy Injections completed MOUNA JAY [address], [place], [address], [place] [facility] 01/14/2024 11:50:43 01/01/20 24 Allergy Immunotherapy Injections completed MOUNA JAY [address], [place], [address], [place] [facility] 01/01/2024 12:15:39 12/24/19 24 Allergy Immunotherapy Injections completed SHAUN PAIGE RMA [address], [place], [address], [place] [facility] 12/24/2023 14:47:22 12/17/19 24 Allergy Immunotherapy Injections completed MAURO ASHRAF RMA [address], [place], [address], [place] [facility] 12/17/2023 11:38:32 12/04/19 24 Allergy Immunotherapy Injections completed SHAUN PAIGE RMA [address], [place], [address], [place] [facility] 12/04/2023 11:19:28 11/27/19 24 Allergy Immunotherapy Injections completed CISCO JEFFERSON RN [address], [place], [address], [place] [facility] 11/27/2023 10:18:58 11/19/19 24 Allergy Immunotherapy Injections completed MAURO ASHRAF RMArnav [address], [place], [address], [place] [facility] 11/19/2023 13:45:27 11/12/19 24 Allergy Immunotherapy Injections completed SHAUN PAIGE RMA [address], [place], [address], [place] [facility] 11/12/2023 14:10:31 11/05/19 24 Allergy Immunotherapy Injections completed CISCO JEFFERSON RN [address], [place], [address], [place] [facility] 11/05/2023 12:04:52 10/29/19 24 Allergy Immunotherapy Injections completed SHAUN PAIGE RMA [address], [place], [address], [place] [facility] 10/29/2023 11:45:35 10/22/19 24 Allergy Immunotherapy Injections completed SHAUN PAIGE RMA [address], [place], [address], [place] [facility] 10/22/2023 13:08:24 10/15/19 24 Allergy Immunotherapy Injections completed CISCO JEFFERSON RN [address] [facility] [address], [place], [address], [place] [facility] 10/15/2023 13:59:34 10/06/19 24 Allergy Immunotherapy Injections completed SHAUN PAIGE RMA [address], [place], [address], [place] [facility] 10/06/2023 15:11:13 09/30/19 24 Allergy Immunotherapy Injections completed DEVIN JAYA [address], [place], [address], [place] [facility] 09/30/2023 12:16:28 09/15/19 24 Allergy Immunotherapy Injections completed SHAUN SALCIDOZana, RMA [address] [facility] [place],[address], [place], [address], [facility] - [facility] 09/15/2023 14:12:59 09/08/19 24 Allergy Immunotherapy Injections completed MAURO ASHRAF, A [address] [facility] [place],[address], [place], [address], [facility] - [facility] 09/08/2023 13:41:53 09/01/19 24 Allergy Immunotherapy Injections completed CISCO JEFFERSON, RN [address] [facility] [address],[address], [place], [address], [facility] - [facility] 09/01/2023 12:11:41 08/21/19 24 Allergy Immunotherapy Injections completed SHAUN LOLY, [facility] [address] [facility] [place],[address], [address], [facility] 08/21/2023 15:15:30 Imaging Results None recorded. Procedure Notes None recorded. Medical Equipment None Reported. Allergies Allergen ID Allergen Name Allergen Category Reaction Reaction Severity Criticality Documentation Date Start Date Code Code System Note Provider Name and Address Organization Details Recorded Time 839986 hazelnut allergeni c extract food Not available Not available Not available 03/01/20252023 11100 3 RxNorm Not Available [place] - External Data Service - prod 13:12:45 [...] % lotion 08/11 completed Medicati on ID: [id number] B rand Name: Lotrison e Send Method: [...] as directed 2022 active Medicati on ID: [id number] B rand Name: azelasti ne Send Method: [...] 10 mg tablet active Medicati on ID: [id number] B rand Name: methimaz ole Send Method: [...] mg capsule 2018 active Medicati on ID: [id number] B rand Name: Zyrtec S end Method: E-Prescr ibed Sub s Allowed: subs OK Medic ationGen ericName : Zyrtec Not Available Not Available Not Available Spectravi te Women 18 mg-400 mcg tablet active Medicati on ID: [id number] B rand Name: Spectrav ite Women Se [...] ICD10 Code Diagnosis IMO Codes Diagnosis Note [id number] CISCO JEFFERSON RN Allergy 100 [facility] 100 [place] [address] 11/16/2024 13:23:19 11/16/2024 13:24:45 Perennial allergic rhinitis [id number] J30.89 25600 MAURO ASHRAF [facility] Allergy [address] [place] [address] 100 [place] [address] 11/24/2024 14:01:35 11/24/2024 14:03:42 Perennial allergic rhinitis [id number] J30.89 92731 SHAUN PAIGE [facility] Allergy [address] [place] [address],[facility] [address] [place] [address] 12/08/2024 11:47:54 12/08/2024 11:49:09 Perennial allergic rhinitis [id number] J30.89 Health Concerns Section Related Observation LastModified by Organization Detai ls LastModified Time None Recorded Concern Status LastModified by Organization Details LastModified Time None Recorded Payers Encounter Date Sequence Insurance Name Policy Number Policy Coleman Covered Member ID Coleman Member ID Guarantor Name 12/08/2024 1 [employer] (MEDICAID REPLACEMENT - HMO) ROGER Peralta [id number] Lori Peralta OBGyn Episode No OBEpisode recorded.
--- OUTSIDE RECORDS SUMMARY | 2025-03-08 16:20 | XMS_ITS | Continuity of Care Document ---
Author Organization [place] - [facility], Allergy Address [address] [place] [address] Care Team Providers Care Quality Control Coordinator Name Role Phone HAILEY LUNDY Primary Care Provider Assessment Encounter Date Assessment Date Assessment LastModified by Organization Details LastModified Time 02/03/2025 02/03/2025 Visit With: Lulu Strong Use of Antihistamine s: No If yes: Vial Test Yes Change in medications: No If yes Increase in asthma symptoms If yes, inhaler use: Reaction to last injections: No If yes: Allergy Symptoms: Other: Missed: Dose Aware of Vial Test Aware: Notes: [email or web address] Not available 02/03/2025 12:09:14 Plan of Treatment Reminders Order Date Submit Date Provider Last Modified By Organization Details Last Modified Time Details Appointments [facility]- Allergy f-up 6mon 2025 02:00P M SIMON [...] Organization Details Recorded Time Bleeding from nose [id number] Active 2018 Epistaxis; Note: Date Diagnosed: 08/31/2018 12:02 PM (R04.0) Not Available [facility] 4 02:39:42 Acute non-infec tive otitis externa 219799979 Active 2019 Unspecifie d acute noninfecti ve otitis externa, left ear; Note: Date Diagnosed: 04/08/2019 1:31 PM (H60.502) Not Available [facility] 02:39:44 Nasal congestio n 24985900 Active 2022 Nasal congestion ; Note: Date Diagnosed: 08/11/2022 3:23 PM (R09.81) Not Available [facility] 02:39:51 Allergic rhinitis 19791754 Active 2023 Allergic rhinitis: Due to other [...] ; Start Date : 05/05/2019 Not Available [facility] 4 01:05:52 Perennial allergic rhinitis 459005681 Active 2023 MOUNA JAY [address] [facility],[place] [address], [place], [address] , [facility] 5 14:03:22 Seasonal allergic rhinitis 233939234 Active 2023 SIMON HO MD 100 [facility],[place] [address], [place], [address] , [place] [facility] 11:00:01 Problem Notes None recorded. Procedures Surgical History Date Name Laterality Status Provider Name and Address Organization Details Recorded Time 03/01/20 25 Allergy Immunotherapy Injections completed CISCO JEFFERSON RN [address],[place] [address] [place] [address], [phone], [place] [facility] 03/01/2025 13:12:51 02/17/20 25 Allergy Immunotherapy Injections completed MOUNA JAY [address],[place] [address] [place] [address], [address], [place] [facility] 02/16/2025 14:03:51 02/04/20 25 Allergy Immunotherapy Injections completed MOUNA JAY [address],[place] [address] [place] [address], [address], [place] [facility] 02/03/2025 12:09:05 01/19/20 25 Allergy Immunotherapy Injections completed MOUNA JAY [address] [facility],[place] [address] [place] [address], [address], [place] [facility] 01/18/2025 14:03:37 01/06/20 25 Allergy Immunotherapy Injections completed MOUNA JAY [address],[place] [address] [place] [address], [address], [place] [facility] 01/05/2025 11:49:34 12/24/19 25 Allergy Immunotherapy Injections completed Marco A Blandon [address] [facility] [place] [address] [place] [address], [address], [place] [facility] 12/23/2024 13:26:10 12/09/19 25 Allergy Immunotherapy Injections completed SHAUN PAIGE RMA [address],[place] [facility], [place], [address], [place] [facility] 12/08/2024 11:48:42 11/25/19 25 Allergy Immunotherapy Injections completed DEVIN JAYA [address],[place] [address], [place], [address], [place] [facility] 11/24/2024 14:02:17 11/17/19 25 Allergy Immunotherapy Injections completed CISCO JEFFERSON RN [address],[place] [address], [place], [address], [facility] - [facility] 11/16/2024 13:24:22 11/04/19 25 Allergy Immunotherapy Injections completed SHAUN SALCIDOC, RMA [address],[place] [address], [place], [address], [facility] - [facility] 11/03/2024 13:37:48 10/27/19 25 Allergy Immunotherapy Injections completed CISCO JEFFERSON RN [address],[place] [address], [place], [address], [place] [facility] 10/26/2024 13:20:55 10/21/19 25 Allergy Immunotherapy Injections completed CISCO JEFFERSON RN [address],[place] [address], [place], [address], [place] [facility] 10/20/2024 13:08:59 10/15/19 25 Allergy Immunotherapy Injections completed SHAUN PAIGE, RMA [address] [facility] [address] [address], [place], [address], [facility] - [facility] 10/14/2024 14:05:00 10/06/19 25 Allergy Immunotherapy Injections completed SHAUN SALCIDOC, RMA [address],[place] [address], [place], [address], [facility] - [facility] 10/05/2024 14:06:18 09/30/19 25 Allergy Immunotherapy Injections completed SHAUN SALCIDOC, RMA [address],[place] [address], [place], [address], [facility] - [facility] 09/29/2024 13:40:36 09/23/19 25 Allergy Immunotherapy Injections completed CISCO JEFFERSON RN [address],[place] [address], [place], [address], [place] [facility] 09/22/2024 09:59:56 09/16/19 25 Allergy Immunotherapy Injections completed SHAUN SALCIDOC, RMA [address],[place] [address], [place], [address], [place] [facility] 09/15/2024 13:26:50 09/09/19 25 Allergy Immunotherapy Injections completed SHAUN KORZEC, RMA [address],[place] [address], [place], [address], [place] [facility] 09/08/2024 13:12:08 09/01/19 25 Allergy Immunotherapy Injections completed DEVIN JAYA [address],[place] [address], [place], [address], [place] [facility] 08/31/2024 13:27:42 08/17/19 25 Allergy Immunotherapy Injections completed LULU STRONG RMA [address],[place] [address], [place], [address], [place] [facility] 08/16/2024 15:58:39 08/11/19 25 Allergy Immunotherapy Injections completed SHAUN PAIGE, RMA [address],[place] [address], [place], [address], [place] [facility] 08/10/2024 15:52:31 08/06/19 25 Allergy Immunotherapy Injections completed CISCO JEFFERSON RN [address],[place] [address], [place], [address], [place] [facility] 08/05/2024 13:41:22 07/28/19 25 Allergy Immunotherapy Injections completed DEVIN JAYA [address],[place] [address], [place], [address], [place] [facility] 07/27/2024 13:36:44 07/21/19 25 Allergy Immunotherapy Injections completed SHAUN PAIGE RMA [address],[place] [address], [place], [address], [place] [facility] 07/20/2024 14:12:33 07/15/19 25 Allergy Immunotherapy Injections completed LULU STRONG RMA [address],[place] [address], [place], [address], [place] [facility] 07/14/2024 15:44:49 07/09/19 25 Allergy Immunotherapy Injections completed SHAUN PAIGE, RMA [address],[place] [address], [place], [address], [place] [facility] 07/08/2024 14:07:20 07/02/19 25 Allergy Immunotherapy Injections completed LULU STRONG RMA [address],[place] [address], [place], [address], [place] [facility] 07/01/2024 14:52:40 06/24/19 25 Allergy Immunotherapy Injections completed SHAUN PAIGE, RMA [address],[place] [address], [place], [address], [place] [facility] 06/23/2024 15:28:21 06/18/19 25 Allergy Immunotherapy Injections completed SHAUN LOLYC, RMA [address],[place] [address], [place], [address], [place] [facility] 06/17/2024 15:26:38 06/11/19 25 Allergy Immunotherapy Injections completed LULU STRONG RMA [address],[place] [address], [place], [address], [place] [facility] 06/10/2024 12:14:00 06/03/19 25 Allergy Immunotherapy Injections completed CISCO JEFFERSON RN [address],[place] [address] [place] [address], [address], [place] [facility] 06/03/2024 15:02:55 05/27/19 25 Allergy Immunotherapy Injections completed CISCO JEFFERSON RN [address],[place] [address], [place], [address], [place] [facility] 05/27/2024 13:18:22 05/19/19 25 Allergy Immunotherapy Injections completed SHAUN PAIGE, RMA [address],[place] [address], [place], [address], [place] [facility] 05/19/2024 15:31:32 05/06/19 25 Allergy Immunotherapy Injections completed SHAUN GRACIEZEC, RMA [address],[place] [address], [place], [address], [place] [facility] 05/06/2024 12:10:48 04/28/19 25 Allergy Immunotherapy Injections completed SHAUN BOWMANZEC, RMA [address],[place] [address], [place], [address], [place] [facility] 04/28/2024 11:59:53 04/21/19 25 Allergy Immunotherapy Injections completed SHAUN SALCIDOC, RMA [address],[place] [address], [place], [address], [place] [facility] 04/21/2024 11:49:44 04/12/19 25 Allergy Immunotherapy Injections completed SHAUN GRACIEZEC, RMA [address],[place] [address], [place], [address], [place] [facility] 04/12/2024 11:31:04 04/07/19 25 Allergy Immunotherapy Injections completed LULU STRONG, RMA [address],[place] [address], [place], [address], [place] [facility] 04/07/2024 14:28:20 03/24/20 24 Allergy Immunotherapy Injections completed CISCO JEFFERSON RN [address],[place] [address], [place], [address], [place] [facility] 03/24/2024 09:06:48 03/17/20 24 Allergy Immunotherapy Injections completed LULU STRONG RMA [address],[place] [address], [place], [address], [place] [facility] 03/17/2024 13:34:10 03/10/20 24 Allergy Immunotherapy Injections completed SHAUN PAIGE, RMA [address],[place] [address], [place], [address], [place] [facility] 03/10/2024 14:29:34 03/02/20 24 Allergy Immunotherapy Injections completed SHAUN PAIGE, RMA [address],[place] [address], [place], [address], [place] [facility] 03/02/2024 13:24:10 02/25/20 24 Allergy Immunotherapy Injections completed LULU STRONG RMA [address],[place] [address], [place], [address], [place] [facility] 02/25/2024 12:05:26 02/18/20 24 Allergy Immunotherapy Injections completed SHAUN SALCIDOC, RMA [address],[place] [address], [place], [address], [place] [facility] 02/18/2024 11:40:09 02/11/20 24 Allergy Immunotherapy Injections completed MOUNA JAY [address],[place] [address], [place], [address], [place] [facility] 02/11/2024 11:17:12 02/04/20 24 Allergy Immunotherapy Injections completed CISCO JEFFERSON RN [address] [address], [place], [address], [place] [facility] 02/04/2024 11:26:13 01/26/20 24 Allergy Immunotherapy Injections completed CISCO JEFFERSON RN [address],[place] [address], [place], [address], [place] [facility] 01/26/2024 11:31:41 01/21/20 24 Allergy Immunotherapy Injections completed SHAUN PAIGE RMArnav [address],[place] [address], [place], [address], [place] [facility] 01/21/2024 11:39:35 01/14/20 24 Allergy Immunotherapy Injections completed MOUNA JAY [address],[place] [address], [place], [address], [place] [facility] 01/14/2024 11:50:43 01/01/20 24 Allergy Immunotherapy Injections completed MOUNA JAY [address],[place] [address], [place], [address], [place] [facility] 01/01/2024 12:15:39 12/24/19 24 Allergy Immunotherapy Injections completed SHAUN PAIGE RMA [address],[place] [address], [place], [address], [place] [facility] 12/24/2023 14:47:22 12/17/19 24 Allergy Immunotherapy Injections completed MOUNA JAY [address],[place] [address], [place], [address], [place] [facility] 12/17/2023 11:38:32 12/04/19 24 Allergy Immunotherapy Injections completed SHAUN PAIGE RMA [address],[place] [address], [place], [address], [place] [facility] 12/04/2023 11:19:28 11/27/19 24 Allergy Immunotherapy Injections completed CISCO JEFFERSON RN [address],[place] [address], [place], [address], [place] [facility] 11/27/2023 10:18:58 11/19/19 24 Allergy Immunotherapy Injections completed MOUNA JAY [address],[place] [address], [place], [address], [place] [facility] 11/19/2023 13:45:27 11/12/19 24 Allergy Immunotherapy Injections completed SHAUN PAIGE RMA [address],[place] [address], [place], [address], [place] [facility] 11/12/2023 14:10:31 11/05/19 24 Allergy Immunotherapy Injections completed CISCO JEFFERSON RN [address],[place] [address], [place], [address], [place] [facility] 11/05/2023 12:04:52 10/29/19 24 Allergy Immunotherapy Injections completed SHAUN PAIGE RMA [address],[place] [address], [place], [address], [place] [facility] 10/29/2023 11:45:35 10/22/19 24 Allergy Immunotherapy Injections completed SHAUN PAIGE RMA [address],[place] [address], [place], [address], [place] [facility] 10/22/2023 13:08:24 10/15/19 24 Allergy Immunotherapy Injections completed CISCO JEFFERSON RN [address],[place] [address], [place], [address], [place] [facility] 10/15/2023 13:59:34 10/06/19 24 Allergy Immunotherapy Injections completed SHAUN PAIGE RMA [address],[place] [address], [place], [address], [place] [facility] 10/06/2023 15:11:13 09/30/19 24 Allergy Immunotherapy Injections completed MOUNA JAY [address],[place] [address], [place], [address], [place] [facility] 09/30/2023 12:16:28 09/15/19 24 Allergy Immunotherapy Injections completed SHAUN PAIGE, RMA [address],[place] [address], [place], [address], [facility] - [facility] 09/15/2023 14:12:59 09/08/19 24 Allergy Immunotherapy Injections completed LULU STRONG, A [address],[place] [address], [place], [address], [facility] - [facility] 09/08/2023 13:41:53 09/01/19 24 Allergy Immunotherapy Injections completed CISCO JEFFERSON, KRIS [address],[place] [address], [place], [address], [facility] - [facility] 09/01/2023 12:11:41 08/21/19 24 Allergy Immunotherapy Injections completed SHAUN SALCIDO, [facility] [address] [facility],[place] [address], [place], [address], [facility] - [facility] 08/21/2023 15:15:30 Imaging Results None recorded. Procedure Notes None recorded. Medical Equipment None Reported. Allergies Allergen ID Allergen Name Allergen Category Reaction Reaction Severity Criticality Documentation Date Start Date Code Code System Note Provider Name and Address Organization Details Recorded Time 373307 hazelnut allergeni c extract food Not available Not available Not available 03/01/20252023 86200 3 RxNorm Not Available harrison - External Data Service - prod 13:12:45 [...] % lotion 08/11 completed Medicati on ID: [id number] B rand Name: Dannyrisjas e Send Method: [...] as directed 2022 active Medicati on ID: [id number] B rand Name: azelasti ne Send Method: E-Prescr ibed Sub s Allowed: subs OK Medic ationGen ericName : azsharynsti ne Not Available Not Available Not Available [...] 10 mg tablet active Medicati on ID: [id number] B rand Name: methimaz ole Send Method: [...] mg capsule 2018 active Medicati on ID: [id number] B rand Name: Zyrtec S end Method: E-Prescr ibed Sub s Allowed: subs OK Medic ationGen ericName : Zyrtec Not Available Not Available Not Available Spectravi te Women 18 mg-400 mcg tablet active Medicati on ID: [id number] B rand Name: Spectrav ite Women Se [...] ICD10 Code Diagnosis IMO Codes Diagnosis Note [id number] LULU PASCALEMOUNA Allergy 100 [facility] 100 [place] [address] 01/05/2025 11:48:55 01/05/2025 11:49:56 Perennial allergic rhinitis 936276282 J30.89 58608 LULUArnav STRONG [facility] Allergy 100 [facility] 100 [place] [address] 01/18/2025 14:03:08 01/18/2025 14:04:11 Perennial allergic rhinitis [id number] J30.89 67450 LULU PASCALE [facility] Allergy 100 [facility] 100 [place] [address] 02/03/2025 12:08:27 02/03/2025 12:09:33 Perennial allergic rhinitis 032264520 J30.89 Health Concerns Section Related Observation LastModified by Organization Detai ls LastModified Time None Recorded Concern Status LastModified by Organization Details LastModified Time None Recorded Payers Encounter Date Sequence Insurance Name Policy Number Policy Coleman Covered Member ID Coleman Member ID Guarantor Name 02/03/2025 1 [employer] (MEDICAID REPLACEMENT - HMO) ROGER Peralta [id number] Lori Peralta OBGyn Episode No OBEpisode recorded.
--- OUTSIDE RECORDS SUMMARY | 2025-03-08 16:20 | XMS_ITS | Clinical Summary ---
Author Organization [facility] Address 175 [place] [address] Phone Care Team Providers Care Commercial Photographer Name Role Phone Nancy Newsome MD Primary Care Provider [phone] Allergies Active Allergy Reactions Criticality Noted Date [...] for dry skin. 400 g 3 5 08/13/19 26 Active ammonium lactate (AmLactin) 12 % lotion Apply topically if needed for dry skin. 400 g 3 5 02/14/20 25 Discontinu ed(Reorder ) Active Problems Problem Noted Date Diagnosed Date Corns and callosities 03/02/2024 Hypothyroid 03/02/2024 Iron deficiency anemia 03/02/2024 Intrinsic eczema 03/02/2024 Encounters Date Type Department Care Team Description 02/13/2025 1:30 PM EST Office Visit Orthopedic Surgery [facility] [address] [address] Curtis Maxwell DPM Xerosis of skin (Primary [...] Care Team (Late st Contact Info) Description 08/14/2025 1:45 PM EDT Office Visit Orthopedic [place] [address] [address] Curtis Maxwell DPM [address] [address] Health Maintenance Due Date Last Done Comments Gonorrhea/Chlamydia Screening 2001 HPV Vaccines (1 - 3-dose series) 02/21/2016 Hepatitis B Vaccines (1 of 3 - 19+ 3-dose series) 02/21/2020 Cervical Cancer Screening: P ap Smear 2022 HIV Screening 04/30/2023 Hepatitis C Screening 04/30/2023 Social Influencers of Health Screening 04/30/2023 Depression Screening 04/06/2024 COVID-19 Vaccine ( - 2024-2 6 season) 2024 Influenza Vaccine (#1) 2024 DTaP,Tdap,and Td Vaccines (2 - Td or Tdap) 11/09/2034 11/09/2024 RSV Immunization Adult Patie nts (1 - 1-dose 75+ series) 02/21/2076 HIB Vaccines Aged Out No longer eligi [...] on patient's age to complete this topic Meningococcal ACWY Vaccine Aged Out N o longer eligible based on patient's age to complete this topic Meningococcal B Vaccine Aged Out No l onger eligible based on patient's age to complete this topic Pneumococcal Vaccine: Pediat rics (0 to 5 Years) and At-Risk Patients (6 to 49 Years) Aged Out No longer eligi ble based on patient's age to complete this topic RSV Immunization Patients Un tori 20 months Aged Out No longer eligible b ased on patient's age to complete this topic Varicella Vaccines Aged Out No longer eligible based on patient's age to complete this topic Insurance Care Teams Commercial Photographer Relationship Specialty Start Date End Date Nancy Newsome MD [address] [facility] , [address] [facility] D/B/A: [facility] [place] Walker PCP - General 12/14/23
--- OUTSIDE RECORDS SUMMARY | 2025-03-08 16:20 | XMS_ITS | Continuity of Care Document ---
Author Organization [place] [facility], Allergy Address [address] [place] [id number] Care Team Providers Care Can Piler Name Role Phone HAILEY LUNDY Primary Care Provider [phone] Assessment Encounter Date Assessment Date Assessment LastModified by Organization Details LastModified Time 03/01/2025 03/01/2025 Visit With: Cisco Jefferson RN [...] Time Details Appointments [facility]- Allergy f-up 6mon 2025 02:00P M [...] Organization Details Recorded Time Bleeding from nose [id number] Active 2018 Epistaxis; Note: Date Diagnosed: 08/31/2018 12:02 PM (R04.0) Not Available [facility] 4 02:39:42 Acute non-infec tive otitis externa [id number] Active 2019 Unspecifie d acute noninfecti ve otitis externa, left ear; Note: Date Diagnosed: 04/08/2019 1:31 PM (H60.502) Not Available [facility] 02:39:44 Nasal congestio n 61660694 Active 2022 Nasal congestion ; Note: Date Diagnosed: 08/11/2022 3:23 PM (R09.81) Not Available [facility] 02:39:51 Allergic rhinitis 67828749 Active 2023 Allergic rhinitis: Due to other [...] ; Start Date : 05/05/2019 Not Available [facility] 4 01:05:52 Perennial allergic rhinitis 997063896 Active 2023 MOUNA JAY [address] [facility],[place] [address], [place], [address] , [facility] - [facility] 5 14:03:22 Seasonal allergic rhinitis [id number] Active 2023 SIMON HO MD [address] [facility],[place] [address], [place], [address] , [place] [facility] [place] 11:00:01 Problem Notes None recorded. Procedures Surgical History Date Name Laterality Status Provider Name and Address Organization Details Recorded Time 03/01/20 25 Allergy Immunotherapy Injections completed CISCO JEFFERSON RN [address],[place] [address] [place] [address], [address], [place] [facility] [place] [place] 03/01/2025 13:12:51 02/17/20 25 Allergy Immunotherapy Injections completed MOUNA JAY [address],[place] [address], [place], [address], [place] [facility] [place] 02/16/2025 14:03:51 02/04/20 25 Allergy Immunotherapy Injections completed MOUNA JAY [address],[place] [address] [place] [address], [address], [place] [facility] 02/03/2025 12:09:05 01/19/20 25 Allergy Immunotherapy Injections completed MOUNA JAY [address],[place] [address] [place] [address], [address], [place] [facility] [place] [place] 01/18/2025 14:03:37 01/06/20 25 Allergy Immunotherapy Injections completed MOUNA JAY [address],[place] [address] [place] [address], [address], [place] [facility] 01/05/2025 11:49:34 12/24/19 25 Allergy Immunotherapy Injections completed Marco A Blandon [address],[place] [address] [place] [address], [address], [place] [facility] 12/23/2024 13:26:10 12/09/19 25 Allergy Immunotherapy Injections completed SHAUN PAIGE RMA [address] [address], [place], [address], [place] [facility] [place] 12/08/2024 11:48:42 11/25/19 25 Allergy Immunotherapy Injections completed DEVIN JAYA [address],[place] [address], [place], [address], [place] [facility] 11/24/2024 14:02:17 11/17/19 25 Allergy Immunotherapy Injections completed CISCO JEFFERSON RN [address] [address], [place], [address], [place] [facility] [place] 11/16/2024 13:24:22 11/04/19 25 Allergy Immunotherapy Injections completed SHAUN PAIGE, RMA [address] [address], [place], [address], [place] [facility] [place] [place] 11/03/2024 13:37:48 10/27/19 25 Allergy Immunotherapy Injections completed CISCO JEFFERSON RN [address] [address], [place], [address], [place] [facility] [place] [place] 10/26/2024 13:20:55 10/21/19 25 Allergy Immunotherapy Injections completed CISCO JEFFERSON RN [address],[place] [address], [address], [place] [facility] [place] 10/20/2024 13:08:59 10/15/19 25 Allergy Immunotherapy Injections completed SHAUN PAIGE RMA [address],[place] [address], [place], [address], [place] [facility] [place] 10/14/2024 14:05:00 10/06/19 25 Allergy Immunotherapy Injections completed SHAUN PAIGE, RMA [address],[place] [address], [place], [address], [place] [facility] [place] 10/05/2024 14:06:18 09/30/19 25 Allergy Immunotherapy Injections completed SHAUN PAIGE RMA [address] [address], [place], [address], [place] [facility] [place] 09/29/2024 13:40:36 09/23/19 25 Allergy Immunotherapy Injections completed CISCO JEFFERSON RN [address] [address], [place], [address], [place] [facility] [place] [place] 09/22/2024 09:59:56 09/16/19 25 Allergy Immunotherapy Injections completed SHAUN SALCIDOC, RMA [address] [address], [place], [address], [place] [facility] 09/15/2024 13:26:50 09/09/19 25 Allergy Immunotherapy Injections completed SHAUN KORZEC, RMA [address] [address], [place], [address], [place] [facility] 09/08/2024 13:12:08 09/01/19 25 Allergy Immunotherapy Injections completed MAURO ASHRAF RMA [address], [place], [address], [place] [facility] [place] 08/31/2024 13:27:42 08/17/19 25 Allergy Immunotherapy Injections completed MAURO ASHRAF RMA [address], [place], [address], [place] [facility] 08/16/2024 15:58:39 08/11/19 25 Allergy Immunotherapy Injections completed SHAUN PAIGE, RMA [address] [address], [place], [address], [place] [facility] 08/10/2024 15:52:31 08/06/19 25 Allergy Immunotherapy Injections completed CISCO JEFFERSON RN [address] [address], [place], [address], [place] [facility] 08/05/2024 13:41:22 07/28/19 25 Allergy Immunotherapy Injections completed MAURO ASHRAF RMA [address],[place] [address], [place], [address], [place] [facility] 07/27/2024 13:36:44 07/21/19 25 Allergy Immunotherapy Injections completed SHAUN PAIGE RMA [address],[place] [address], [place], [address], [place] [facility] 07/20/2024 14:12:33 07/15/19 25 Allergy Immunotherapy Injections completed MAURO ASHRAF RMA [address], [place], [address], [place] [facility] 07/14/2024 15:44:49 07/09/19 25 Allergy Immunotherapy Injections completed SHAUN SALCIDOC, RMA [address],[place] [address], [place], [address], [place] [facility] 07/08/2024 14:07:20 07/02/19 25 Allergy Immunotherapy Injections completed MAURO ASHRAF, RMA [address], [place], [address], [place] [facility] 07/01/2024 14:52:40 06/24/19 25 Allergy Immunotherapy Injections completed SHAUN LOLYC, RMA [address] [address], [place], [address], [place] [facility] 06/23/2024 15:28:21 06/18/19 25 Allergy Immunotherapy Injections completed SHAUN LOLYC, RMA [address], [place], [address], [place] [facility] 06/17/2024 15:26:38 06/11/19 25 Allergy Immunotherapy Injections completed MAURO ASHRAF RMA [address] [address], [place], [address], [place] [facility] 06/10/2024 12:14:00 06/03/19 25 Allergy Immunotherapy Injections completed CISCO JEFFERSON RN [address],[place] [address] [place] [address], [address], [place] [facility] 06/03/2024 15:02:55 05/27/19 25 Allergy Immunotherapy Injections completed CISCO JEFFERSON RN [address],[place] [address], [place], [address], [place] [facility] 05/27/2024 13:18:22 05/19/19 25 Allergy Immunotherapy Injections completed SHAUN PAIGE, RMA [address], [place], [address], [place] [facility] 05/19/2024 15:31:32 05/06/19 25 Allergy Immunotherapy Injections completed SHAUN LOLYC, RMA [address], [place], [address], [place] [facility] 05/06/2024 12:10:48 04/28/19 25 Allergy Immunotherapy Injections completed SHAUN GRACIEZEC, RMA [address], [place], [address], [place] [facility] 04/28/2024 11:59:53 04/21/19 25 Allergy Immunotherapy Injections completed SHAUN SALCIDOC, RMA [address], [place], [address], [place] [facility] 04/21/2024 11:49:44 04/12/19 25 Allergy Immunotherapy Injections completed SHAUN GRACIEZEC, RMA [address], [place], [address], [place] [facility] 04/12/2024 11:31:04 04/07/19 25 Allergy Immunotherapy Injections completed MAURO ASHRAF, RMA [address], [place], [address], [place] [facility] 04/07/2024 14:28:20 03/24/20 24 Allergy Immunotherapy Injections completed CISCO JEFFERSON RN [address], [place], [address], [place] [facility] 03/24/2024 09:06:48 03/17/20 24 Allergy Immunotherapy Injections completed MAURO ASHRAF RMA [address], [place], [address], [place] [facility] 03/17/2024 13:34:10 03/10/20 24 Allergy Immunotherapy Injections completed SHAUN SALCIDOC, RMA [address], [place], [address], [place] [facility] 03/10/2024 14:29:34 03/02/20 24 Allergy Immunotherapy Injections completed SHAUN SALCIDOC, RMA [address], [place], [address], [place] [facility] 03/02/2024 13:24:10 02/25/20 24 Allergy Immunotherapy Injections completed MAURO ASHRAF RMA [address], [place], [address], [place] [facility] 02/25/2024 12:05:26 02/18/20 24 Allergy Immunotherapy Injections completed SHAUN SALCIDOC, RMA [address],[place] [address], [place], [address], [place] [facility] [place] 02/18/2024 11:40:09 02/11/20 24 Allergy Immunotherapy Injections completed MOUNA JAY [address], [place], [address], [place] [facility] 02/11/2024 11:17:12 02/04/20 24 Allergy Immunotherapy Injections completed CISCO JEFFERSON RN [address], [place], [address], [place] [facility] 02/04/2024 11:26:13 01/26/20 24 Allergy Immunotherapy Injections completed CISCO JEFFERSON RN [address], [place], [address], [place] [facility] 01/26/2024 11:31:41 01/21/20 24 Allergy Immunotherapy Injections completed SHAUN PAIGE RMArnav [address], [place], [address], [place] [facility] 01/21/2024 11:39:35 01/14/20 24 Allergy Immunotherapy Injections completed MOUNA JAY [address], [place], [address], [place] [facility] 01/14/2024 11:50:43 01/01/20 24 Allergy Immunotherapy Injections completed MOUNA JAY [address], [place], [address], [place] [facility] 01/01/2024 12:15:39 12/24/19 24 Allergy Immunotherapy Injections completed SHAUN PAIGE RMA [address], [place], [address], [place] [facility] 12/24/2023 14:47:22 12/17/19 24 Allergy Immunotherapy Injections completed DEVIN JAYA [address], [place], [address], [place] [facility] 12/17/2023 11:38:32 12/04/19 24 Allergy Immunotherapy Injections completed SHAUN PAIGE RMA [address], [place], [address], [place] [facility] 12/04/2023 11:19:28 11/27/19 24 Allergy Immunotherapy Injections completed CISCO JEFFERSON RN [address], [place], [address], [place] [facility] 11/27/2023 10:18:58 11/19/19 24 Allergy Immunotherapy Injections completed MAURO ASHRAF RMArnav [address],[place] [address], [place], [address], [place] [facility] 11/19/2023 13:45:27 11/12/19 24 Allergy Immunotherapy Injections completed SHAUN PAIGE RMA [address] [address], [place], [address], [place] [facility] 11/12/2023 14:10:31 11/05/19 24 Allergy Immunotherapy Injections completed CISCO JEFFERSON RN [address],[place] [address] [place] [address], [address], [place] [facility] 11/05/2023 12:04:52 10/29/19 24 Allergy Immunotherapy Injections completed SHAUN PAIGE RMA [address], [place], [address], [place] [facility] 10/29/2023 11:45:35 10/22/19 24 Allergy Immunotherapy Injections completed SHAUN PAIGE RMA [address],[place] [address], [place], [address], [place] [facility] 10/22/2023 13:08:24 10/15/19 24 Allergy Immunotherapy Injections completed CISCO JEFFERSON RN [address],[place] [address] [place] [address], [address], [place] [facility] 10/15/2023 13:59:34 10/06/19 24 Allergy Immunotherapy Injections completed SHAUN PAIGE RMA [address],[place] [address], [place], [address], [place] [facility] 10/06/2023 15:11:13 09/30/19 24 Allergy Immunotherapy Injections completed DEVIN JAYA [address],[place] [address], [place], [address], [place] [facility] 09/30/2023 12:16:28 09/15/19 24 Allergy Immunotherapy Injections completed SHAUN SALICDOZana, RMA [address],[place] [address], [place], [address], [facility] - [facility] [place] 09/15/2023 14:12:59 09/08/19 24 Allergy Immunotherapy Injections completed MAURO ASHRAF, A [address] [facility],[address], [place], [address], [facility] - [facility] 09/08/2023 13:41:53 09/01/19 24 Allergy Immunotherapy Injections completed CISCO JEFFERSON RN [address] [facility],[address], [place], [address], [facility] - [facility] 09/01/2023 12:11:41 08/21/19 24 Allergy Immunotherapy Injections completed SHAUN LOLY, [facility] [address] [facility],[address], [address], [facility] 08/21/2023 15:15:30 Imaging Results None recorded. Procedure Notes None recorded. Medical Equipment None Reported. Allergies Allergen ID Allergen Name Allergen Category Reaction Reaction Severity Criticality Documentation Date Start Date Code Code System Note Provider Name and Address Organization Details Recorded Time 307701 hazelnut allergeni c extract food Not available Not available Not available 03/01/20252023 52309 3 RxNorm Not Available [facility] - External Data Service - prod 13:12:45 [...] % lotion 08/11 completed Medicati on ID: [id number] B rand Name: Lotrison e Send Method: [...] as directed 2022 active Medicati on ID: [id number] B rand Name: azelasti ne Send Method: [...] 10 mg tablet active Medicati on ID: 650402 B rand Name: methimaz ole Send Method: [...] mg capsule 2018 active Medicati on ID: 276432 B rand Name: Zyrtec S end Method: E-Prescr ibed Sub s Allowed: subs OK Medic ationGen ericName : Zyrtec Not Available Not Available Not Available Spectravi te Women 18 mg-400 mcg tablet active Medicati on ID: [id number] B rand Name: Spectrav ite Women Se [...] ICD10 Code Diagnosis IMO Codes Diagnosis Note [id number] MOUNA JAY Allergy [address] [facility] 100 [place] [address] 02/03/2025 12:08:27 02/03/2025 12:09:33 Perennial allergic rhinitis [id number] J30.89 05993 MOUNA JAY Allergy [address] [facility] 100 [place] [address] 02/16/2025 14:03:12 02/16/2025 14:04:43 Perennial allergic rhinitis 197427409 J30.89 [id number] CISCO JEFFERSON RN Allergy [address] [place] [address],[facility] 100 [place] [address] 03/01/2025 13:12:19 03/01/2025 13:13:15 Perennial allergic rhinitis [id number] J30.89 Health Concerns Section Related Observation LastModified by Organization Detai ls LastModified Time None Recorded Concern Status LastModified by Organization Details LastModified Time None Recorded Payers Encounter Date Sequence Insurance Name Policy Number Policy Coleman Covered Member ID Coleman Member ID Guarantor Name 03/01/2025 1 [employer] (MEDICAID REPLACEMENT - HMO) ROGER Peralta [id number] Lori Peralta OBGyn Episode No OBEpisode recorded.
== END 2025-03-08 14:18 | disposition home or self-care (01) ==
PROVIDERS: PCP Internal Medicine; Visit Provider Physician Assistant Medical
DX: J02.9 Acute pharyngitis, unspecified (principal); B37.0 Candidal stomatitis; Z13.9 Encounter for screening, unspecified

== ENCOUNTER → 2025-03-08 13:41 | Outpatient (BNVA) | payer OTHER, SELFPAY | PROVIDERS: PCP Internal Medicine; Visit Provider Physician Assistant Medical | DX: B37.0 Candidal stomatitis (principal); J02.9 Acute pharyngitis, unspecified | CPT/HCPCS: 87880; 99212 ==

== ENCOUNTER 2025-03-14 13:45 | Outpatient (AMB) | payer OTHER, SELFPAY ==
--- NOTE | 2025-03-14 14:07 | MHC.PC.OV ---
Vital Signs 03/14/25 14:08 Height 5 ft 4 in Weight 130 lb 8 oz BMI 22.4 BP 120/72 Blood Pressure Location Lt brachial Position Sitting Respiration 18 Pulse 79 Pulse Source Pulse Oximeter Temp Source Temporal Artery Scan Pulse Oximetry (%) 100 Oxygen Delivery Method Room Air Intake Visit Reasons: rash around mouth area Mft Required: No Accompanied by: Self / Same As Patient Allergies hazelnut Allergy (Mild, Verified 03/14/25 14:32) WATERY EYES mcconnell (CHERRIES) Allergy (Unknown, Verified 03/14/25 14:32) THROAT SWELLING GUINNEA PIG Allergy (Mild, Uncoded 03/14/25 14:32) WATERY, ITCHY EYES Tree Nuts Allergy (Unknown, Uncoded 03/14/25 14:32) rash Medication List - Last Reconciled 03/14/25 by Nancy Newsome MD ascorbate calcium (vitamin C) 500 mg PO DAILY 90 days betamethasone dipropionate 0.05% 1 appl topical DAILY PRN 2 weeks cetirizine 10 mg PO DAILY PRN 90 days epinephrine 0.3 mL IM DIRECTED PRN 30 days ferrous sulfate 325 mg PO BID 90 days ipratropium bromide 2 sprays intranasal BID PRN nystatin 5 mL buccal qid 7 days penicillin V potassium 500 mg PO qid 10 days polyethylene glycol 3350 (Miralax) 17 grams PO DAILY PRN 30 days prednisone 40 mg (2 x 20 mg) PO DAILY 5 days Synthroid (levothyroxine) 88 mcg PO DAILY NS triamcinolone acetonide 0.5% 1 appl topical DAILY 2 weeks Tobacco use date assessed: 03/14/25 Dental Screening Dental Screen Date: 03/14/25 Did you have a dental visit in the last 12 months?: Yes Did you have a dental problem in the last 6 months where you did not have access to dental care?: No Was dental information given to patient?: Patient has dentist HPI HPI Comments History of Present Illness Details The patient is a 25 year old female presenting with evaluation of a rash and follow-up on several chronic conditions. She has a history of allergies to hazelnut, cherries, guinea pigs, and tree nuts. Her current medications include vitamin C, cetirizine and an EpiPen as needed for allergies, iron taken twice daily for anemia, MiraLAX, Synthroid for hypothyroidism, and ipratropium. She has previously been prescribed betamethasone dipropionate cream for eczema but is not currently using it. The patient recently visited an urgent care for a new concern, which was found to be oral thrush. She was also evaluated for a vaginal concern, but the exam was noted to be clean. [facility] Medical History (Updated 03/14/25 @ 17:34 by Nancy Newsome MD) Hypothyroid Hypothyroidism, postop Iron deficiency anemia Intrinsic eczema Surgical History Hx of thyroidectomy Family History Mother Chronic mental illness Hypertension Asthma Hypothyroidism Depression Maternal Grandfather Cancer Maternal Grandmother Hypertension Diabetes Hypercholesteremia Father Anemia Social History Household Members: Family Household Members Other:: grandmother Housing: House Alcohol intake: never Patient Tobacco Use Status: Never used Tobacco e-Cigarette/Vaping Use: Never Used Second Hand Smoke Exposure: No service: No 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al status: unemployed 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 Cognitive needs: No Hearing needs: No Vision needs: Yes Female Reproductive History Menstrual Age of Menarche: 12 Questionnaire Thrive Questionnaire Date Thrive assessed: 03/14/25 I am a: Patient What is your living situation today?: I have a steady place to live Within the past 12 months, did the food you bought not last and you didn't have the money to get more?: Sometimes True Within the past 12 months, did you worry whether your food would run out before you got money to buy more?: Never true Do you have trouble paying for medicines?: No Do you have trouble getting transportation to medical appointments?: No Do you have trouble paying your heating and electricity bill?: No Do you have trouble taking care of your child, family member or friend?: No Do you have trouble with day-to-day activities such as bathing, preparing meals, shopping, managing finances, etc.?: No Are you currently unemployed and looking for a job?: I choose not to answer this question Are you interested in more education?: Yes Please select the resources that you would like help with: None Currently or been in a relationship where the following occur: No concerns reported THRIVE Score: 1 JUSTIN-7 AMB Questionnaire JUSTIN-7 Date JUSTIN - 7 assessed: 07/04/24 Source: Developed by Drs. Gee Garcia, Carol Sanchez, Erasto Lord and colleagues, with an educational vanda from [employer]. Review of Systems Const All systems reviewed & are unremarkable except as noted in HPI and below Card Denies chest pain at rest, Denies chest pain with activity, Denies edema, Denies irregular heart rhythm, Denies claudication, Denies dyspnea, Denies dyspnea on exertion, Denies orthopnea, Denies paroxysmal nocturnal dyspnea and Denies slow heart rate Resp Denies cough, Denies dyspnea and Denies dyspnea on exertion Physical exam (Primary Care) Vital Signs: Last Vital Signs Pulse 79 03/14/25 14:08 Resp 18 03/14/25 14:08 BP 120/72 03/14/25 14:08 Pulse Ox 100 03/14/25 14:08 Oxygen Delivery Method Room Air 03/14/25 14:08 BMI result Body Mass Index 22.4 Tobacco/Smoking Status: Tobacco use Status Tobacco use date assessed 03/14/25 03/14/25 14:11 Patient Tobacco Use Status Never used Tobacco 03/14/25 14:11 e-Cigarette/Vaping Use Never Used 03/14/25 14:11 Thrive Assessment: Date of Thrive Assessment Date Thrive assessed 03/14/25 03/14/25 14:11 Currently or been in a relationship where the following occur: No concerns reported Resp Effort & Inspection: normal respiratory effort Auscultation: clear to auscultation bilaterally Cardio Jugular venous distension: no JVD Rate: regular rate Rhythm: regular rhythm Heart sounds: S1 normal heart sound present and S2 normal heart sound present Extrem General: Yes full ROM Coding Level of Care Code Est Pt Level 3 (00586) Diagnoses Perioral dermatitis L71.0 Oral thrush B37.0 Time Spent (min) 18 Assessment & Plan Assessment & Plan (1) Perioral dermatitis: Code(s): L71.0 - Perioral dermatitis Category: Medical (2) Oral thrush: Code(s): B37.0 - Candidal stomatitis Category: Medical Plan Plan 1. Oral Thrush The patient was diagnosed with dorsal oral thrush. A cream will be prescribed for the lips and the affected perioral region. A medication for gargling will also be prescribed. 2. Perioral dermatitis Start topical mupirocin. Medications: New mupirocin 2% (Centany) 1 appl topical BID 15 grams 1RF 2 weeks nystatin administer 1/2 of dose in each side of the mouth 1 mL buccal DAILY 7 mL 1RF 7 days Refilled betamethasone dipropionate 0.05% 1 appl topical DAILY PRN 45 grams 2RF skin irritation 2 weeks
[2025-03-14 14:08] VITALS: BP 120/72; PULSE 79; RESP 18; O2SAT 100; BMI 22.4
== END 2025-03-14 14:48 | disposition home or self-care (01) ==
LOC: HO.HMCH 13:46
PROVIDERS: PCP Internal Medicine; Visit Provider Internal Medicine
DX: L71.0 Perioral dermatitis (principal); B37.0 Candidal stomatitis

== ENCOUNTER → 2025-03-14 13:45 | Outpatient (BNVA) | payer OTHER, SELFPAY | PROVIDERS: PCP Internal Medicine; Visit Provider Internal Medicine | DX: B37.0 Candidal stomatitis (principal); L71.0 Perioral dermatitis | CPT/HCPCS: 99212 ==